=== PATIENT | female | born 1935 | race Caucasian/White ===

== ENCOUNTER 2017-12-09 10:22 | Inpatient (IN) | payer MEDICARE, BC ==
[2017-12-09] MEDS ORDERED: LEVOFLOXACIN 750MG-D5W PMX 750 MG in DEXTROSE/WATER 1 150ML.BAG IVPB STA (10:41)
[2017-12-09] MEDS ORDERED: ACETAMINOPHEN TAB 500 MG TAB PO STA (10:41)
--- NOTE | 2017-12-09 10:45 | ED ---
SOB HPI - General Chief Complaint: Shortness of Breath Stated Complaint: Diff Breathing Time Seen by Provider: 12/09/17 10:31 Source: patient Mode of arrival: EMS Limitations: physical limitation - History of Present Illness Initial Comments: Physical 82-year-old female to history of emphysema who is O2 dependent at home on 2-1/2 L [id number] presents emergency department for worsening shortness of breath. The patient states that the symptoms seem to get worse today. She does use albuterol every 4 hours at home and she stated that she use one this morning however did not improve her symptoms. She states that she has been coughing up yellow sputum which she typically does not do. She is noticed being a little bit febrile at home as well. She called [facility] when her breathing got worse. In route she received aspirin and a breathing treatment. She states that the breathing treatment slightly improved her symptoms. She does also admits to some right-sided chest wall pain that is worse when she coughs. She denies any nausea, vomiting, or diarrhea. No sick contacts that she knows about. Patient did receive a flu shot this year. No other acute complaints. - Related Data Home Medications Medication Instructions Recorded Confirmed Isosorbide Mononitrate ER [Imdur] 30 mg PO DAILY 03/07/14 12/09/17 Atorvastatin [Lipitor] 40 mg PO DAILY 06/25/14 12/09/17 Furosemide [Lasix] 20 mg PO DAILY 12/13/14 12/09/17 Losartan [Cozaar] 25 mg PO DAILY 11/27/15 12/09/17 Aspirin EC [Ecotrin Low Dose] 81 mg PO DAILY 04/29/16 12/09/17 Nitroglycerin Sl Tabs [Nitrostat] 0.4 mg SUBLINGUAL Q5M PRN 04/29/16 12/09/17 Vit C/E/Zn/Coppr/Lutein/Zeaxan 1 cap PO BID 04/29/16 12/09/17 [Preservision Areds 2 Softgel] Levothyroxine Sodium [Synthroid] 50 mcg PO DAILY 09/23/16 12/09/17 Allopurinol [Zyloprim] 100 mg PO DAILY 12/09/17 12/09/17 Calcium Carbonate [Calcium] 600 mg PO DAILY 12/09/17 12/09/17 Indacaterol/Glycopyrrolate 1 puff INHALATION RT-DAILY 12/09/17 12/09/17 [Utibron Neohaler 27.5-15.6 Mcg] Previous Rx's Medication Instructions Recorded Atenolol [Tenormin] 50 mg PO BID tab 11/16/15 Ipratropium-Albuterol Nebulize 3 ml INHALATION RT-QID #0 11/16/15 [Duoneb 0.5 mg-3 mg/3 ml Soln] predniSONE 20 mg PO DAILY #5 tab 09/28/16 Allergies Allergy/AdvReac Type Severity Reaction Status Date / Time azithromycin [From Zithromax] Allergy Severe Dyspnea Verified 12/09/17 10:50 codeine Allergy Dyspnea Verified 12/09/17 10:50 erythromycin base Allergy Dyspnea Verified 12/09/17 10:50 [Erythromycin Base] Review of Systems ROS Statement: Those systems with pertinent positive or pertinent negative responses have been documented in the HPI. ROS Other: All systems not noted in ROS Statement are negative. Past Medical History Past Medical History: COPD, Hyperlipidemia, Hypertension, Myocardial Infarction (PA), Pneumonia, Thyroid Disorder Additional Past Medical History / Comment(s): COPD with FEV1 of 35% of predictedl oxygen dependent, coronary artery disease with previous PA, hypothyroidism, hyperlipidemia, previous history of influenza respiratory checked infection, glaucoma, iron deficiency, chronic renal failure, hypertension Last Myocardial Infarction Date:: History of Any Multi-Drug Resistant Organisms: None Reported Past Surgical History: Cholecystectomy, Heart Catheterization, Heart Catheterization With Stent, Hysterectomy, Tonsillectomy Additional Past Surgical History / Comment(s): parathyroidectomy, bilateral cataract surgery, BLADDER suspension surgery, right inguinal hernia repair, left hand tendon repair. Past Anesthesia/Blood Transfusion Reactions: No Reported Reaction Date of Last Stent Placement:: 1999 Past Psychological History: No Psychological Hx Reported Smoking Status: Former smoker Past Alcohol Use History: None Reported Past Drug Use History: None Reported - Past Family History Father Family Medical History: Myocardial Infarction (PA) Additional Family Medical History / Comment(s): AT AGE 83 Mother Family Medical History: Congestive Heart Failure (CHF), Coronary Artery Disease (CAD), Renal Disease Additional Family Medical History / Comment(s): AT AGE 79 General Exam - General Exam Comments Initial Comments: Constitutional: Awake alert Appears comfortable Head: Normocephalic atraumatic Eyes: no conjunctival injection No scleral icterus EOMI Neck: No JVD Supple Heart: Regular rate rhythm normal S1-S2 no murmurs Lungs: Tachypnea with bilateral expiratory wheezes No rales Abdomen: Soft nondistended nontender Extremities: Non edematous DP pulses intact Radial pulses intact Neuro: A&Ox3 No focal neurologic deficits Psych: Appropriate mood and affect Limitations: physical limitation Course Vital Signs 12/09/17 12/09/17 12/09/17 10:32 11:06 11:12 Temperature 101 F H Pulse Rate 90 90 96 Respiratory 16 Rate Blood Pressure 167/70 O2 Sat by Pulse 96 Oximetry - Reevaluation(s) Reevaluation #1: 12/09/17 10:45 EKG showing normal sinus rhythm with a rate of 87. No abnormal ST segment changes. There are T-wave inversions in leads II, III, and F aVF and also V6. QTC is 454. Other intervals are normal. No ectopy. Medical Decision Making - Medical Decision Making Is an 82-year-old female who presents emergency department for shortness of breath and cough productive of yellow sputum. The patient had a chest x-ray that was unremarkable for any acute changes. She was influenza B-positive. Was started on Tamiflu. Due to her peroneal and sputum I did start the patient Levaquin to cover for bacterial bronchitis. The patient will be admitted to the hospital for monitoring. She was improved after DuoNeb treatment. Did not require further ventilatory assistance. Dr. Arita except see admission. The patient was updated and agrees. - Lab Data Result diagrams: 12/09/17 11:00 12/09/17 11:00 Lab Results 12/09/17 12/09/17 12/09/17 Range/Units 10:35 11:00 11:00 WBC 10.6 (3.8-10.6) k/uL RBC 3.89 (3.80-5.40) m/uL Hgb 11.7 (11.4-16.0) gm/dL Hct 36.3 (34.0-46.0) % MCV 93.3 (80.0-100.0) fL MCH 30.2 (25.0-35.0) pg MCHC 32.4 (31.0-37.0) g/dL RDW 16.1 H (11.5-15.5) % Plt Count 208 (150-450) k/uL Neutrophils % 83 % Lymphocytes % 8 % Monocytes % 5 % Eosinophils % 3 % Basophils % 0 % Neutrophils # 8.8 H (1.3-7.7) k/uL Lymphocytes # 0.9 L (1.0-4.8) k/uL Monocytes # 0.5 (0-1.0) k/uL Eosinophils # 0.3 (0-0.7) k/uL Basophils # 0.0 (0-0.2) k/uL Poikilocytosis Slight Anisocytosis Slight PT (9.0-12.0) sec INR (<1.2) APTT (22.0-30.0) sec Sodium (137-145) mmol/L Potassium (3.5-5.1) mmol/L Chloride (98-107) mmol/L Carbon Dioxide (22-30) mmol/L Anion Gap mmol/L BUN (7-17) mg/dL Creatinine (0.52-1.04) mg/dL Est GFR (MDRD) Af Amer (>60 ml/min/1.73 sqM) Est GFR (MDRD) Non-Af (>60 ml/min/1.73 sqM) Glucose (74-99) mg/dL Plasma Lactic Acid Mart (0.7-2.0) mmol/L Calcium (8.4-10.2) mg/dL Total Bilirubin (0.2-1.3) mg/dL AST (14-36) U/L ALT (9-52) U/L Alkaline Phosphatase (38-126) U/L Total Creatine Kinase 41 (30-135) U/L Total Protein (6.3-8.2) g/dL Albumin (3.5-5.0) g/dL Influenza Type A RNA Not Detected (Not Detectd) Influenza Type B (PCR) Detected H (Not Detectd) 12/09/17 12/09/17 12/09/17 Range/Units 11:00 11:00 11:00 WBC (3.8-10.6) k/uL RBC (3.80-5.40) m/uL Hgb (11.4-16.0) gm/dL Hct (34.0-46.0) % MCV (80.0-100.0) fL MCH (25.0-35.0) pg MCHC (31.0-37.0) g/dL RDW (11.5-15.5) % Plt Count (150-450) k/uL Neutrophils % % Lymphocytes % % Monocytes % % Eosinophils % % Basophils % % Neutrophils # (1.3-7.7) k/uL Lymphocytes # (1.0-4.8) k/uL Monocytes # (0-1.0) k/uL Eosinophils # (0-0.7) k/uL Basophils # (0-0.2) k/uL Poikilocytosis Anisocytosis PT 9.9 (9.0-12.0) sec INR 1.0 (<1.2) APTT 19.3 L (22.0-30.0) sec Sodium 142 (137-145) mmol/L Potassium 4.3 (3.5-5.1) mmol/L Chloride 106 (98-107) mmol/L Carbon Dioxide 27 (22-30) mmol/L Anion Gap 9 mmol/L BUN 57 H (7-17) mg/dL Creatinine 1.60 H (0.52-1.04) mg/dL Est GFR (MDRD) Af Amer 37 (>60 ml/min/1.73 sqM) Est GFR (MDRD) Non-Af 31 (>60 ml/min/1.73 sqM) Glucose 85 (74-99) mg/dL Plasma Lactic Acid Mart 1.3 (0.7-2.0) mmol/L Calcium 9.6 (8.4-10.2) mg/dL Total Bilirubin 1.1 (0.2-1.3) mg/dL AST 33 (14-36) U/L ALT 48 (9-52) U/L Alkaline Phosphatase 66 (38-126) U/L Total Creatine Kinase (30-135) U/L Total Protein 5.5 L (6.3-8.2) g/dL Albumin 3.5 (3.5-5.0) g/dL Influenza Type A RNA (Not Detectd) Influenza Type B (PCR) (Not Detectd) Disposition Clinical Impression: Influenza, COPD exacerbation Disposition: ADMITTED IP TO THIS HOSP Condition: Stable
[2017-12-09] MEDS ORDERED: IPRATROPIUM-ALBUTEROL 3 ML NEB INHALATION STA (11:03)
[2017-12-09] MEDS ORDERED: methylPREDNISolone SOD SUCCI 125 MG/2 ML VIAL IV STA (11:04)
[2017-12-09] MEDS: SODIUM CHLORIDE 0.9% 500 ML IV SCH ×2 (11:13→11:14)
[2017-12-09] MEDS: SODIUM CHLORIDE 0.9% 1,000 ML IV SCH (11:14)
[2017-12-09 11:28] LABS: Prothrombin Time 9.9 sec (9.0-12.0)
[2017-12-09 11:29] LABS: Albumin 3.5 g/dL (3.5-5.0); Anisocytosis Slight; Basophils % (A) 0 %; Calcium 9.6 mg/dL (8.4-10.2); Eosinophils # (A) 0.3 k/uL (0-0.7); Eosinophils % (A) 3 %; HCT 36.3 % (34.0-46.0); HGB 11.7 gm/dL (11.4-16.0); Lymphocytes # (A) 0.9 k/uL (1.0-4.8); Lymphocytes % (A) 8 %; MCH 30.2 pg (25.0-35.0); MCHC 32.4 g/dL (31.0-37.0); MCV 93.3 fL (80.0-100.0); Mean Platelet Volume 7.2; Monocytes # (A) 0.5 k/uL (0-1.0); Monocytes % (A) 5 %; Neutrophils # (A) 8.8 k/uL (1.3-7.7); Neutrophils % (A) 83 %; Platelet Count 208 k/uL (150-450); Poikilocytosis Slight; Potassium 4.3 mmol/L (3.5-5.1); RBC 3.89 m/uL (3.80-5.40); RDW 16.1 % (11.5-15.5); Total Bilirubin 1.1 mg/dL (0.2-1.3); Total Protein 5.5 g/dL (6.3-8.2); WBC 10.6 k/uL (3.8-10.6)
--- NOTE | 2017-12-09 11:44 | XR ---
EXAMINATION TYPE: XR chest 2V DATE OF EXAM: 12/09/2017 COMPARISON: Chest CT November 30, 2015. Two view chest xray November 05, 2016. HISTORY: Cough and fever. TECHNIQUE: Frontal and lateral views of the chest are obtained. FINDINGS: There is background chronic emphysematous change with scattered fibrosis most prominent in the upper lobes. There is persistent 1.8 cm left upper lobe nodule which correlates with cavitary le ghazala on prior CT. There is no new suspicious focal airspace opacity, pleural effusion, or pneumothora x seen. The cardiac silhouette size is within normal limits. The osseous structures remain deminer alized. IMPRESSION: Chronic emphysematous change with upper lung fibrosis but no suspicious acute pulmonary process.
[2017-12-09] MEDS ORDERED: OSELTAMIVIR 75 MG CAP PO ONE (11:45)
[2017-12-09 12:05] LABS: Partial Thromboplastin Time 19.3 sec (22.0-30.0)
[2017-12-09] MEDS ORDERED: NITROGLYCERIN SL TABS 0.4 MG TAB SUBLINGUAL PRN (12:14)
[2017-12-09 12:33] LABS: Troponin I 0.063 ng/mL (0.000-0.034)
--- NOTE | 2017-12-09 17:54 | P.HPIM ---
History of Present Illness 82-year-old female to history of emphysema who is O2 dependent at home on 2-1/2 L [id number] presents emergency department for worsening shortness of breath. The patient states that the symptoms seem to get worse today. She does use albuterol every 4 hours at home and she stated that she use one this morning however did not improve her symptoms. She states that she has been coughing up yellow sputum which she typically does not do. She is noticed being a little bit febrile at home as well. She does also admits to some right-sided chest wall pain that is worse when she coughs. She denies any nausea, vomiting, or diarrhea. No sick contacts that she knows about. Patient did receive a flu shot this year. No other acute complaints. complaint of fever chills for a while. Patient is found to have influenza B positive has symptoms of body aches started yesterday morning. Chest x-ray did not show any pneumonic process. Patient is on 20 mg of Lasix for ankle edema. Review of Systems REVIEW OF SYSTEMS: CONSTITUTIONAL: As mentioned above HEENT: No recent visual problems or hearing problems. Denied any sore throat. CARDIOVASCULAR: No chest pain, orthopnea, PND, no palpitations, no syncope. PULMONARY: no hemoptysis. GASTROINTESTINAL: No diarrhea, no nausea, no vomiting, no abdominal pain. Normoactive bowel sounds. NEUROLOGICAL: No headaches, no weakness, no numbness. HEMATOLOGICAL: Denies any bleeding or petechiae. GENITOURINARY: Denies any burning micturition, frequency, or urgency. MUSCULOSKELETAL/RHEUMATOLOGICAL: Denies any joint pain, swelling, or any muscle pain. ENDOCRINE: Denies any polyuria or polydipsia. The rest of the 14-point review of systems is negative. Past Medical History Past Medical History: Heart Failure, COPD, Hyperlipidemia, Hypertension, Myocardial Infarction (PR), Pneumonia, Thyroid Disorder Additional Past Medical History / Comment(s): COPD-home 02 2.5 liters n/c atc , coronary artery disease with previous PR, hypothyroidism, hyperlipidemia, previous history of influenza infection, glaucoma, iron deficiency, chronic renal failure, hypertension Last Myocardial Infarction Date:: History of Any Multi-Drug Resistant Organisms: None Reported Past Surgical History: Cholecystectomy, Heart Catheterization, Heart Catheterization With Stent, Hysterectomy, Tonsillectomy Additional Past Surgical History / Comment(s): parathyroidectomy, bilateral cataract surgery, BLADDER suspension surgery, right inguinal hernia repair, left hand tendon repair. Past Anesthesia/Blood Transfusion Reactions: No Reported Reaction Date of Last Stent Placement:: 1999 Smoking Status: Former smoker - Past Family History Father Family Medical History: Myocardial Infarction (PR) Additional Family Medical History / Comment(s): AT AGE 83 Mother Family Medical History: Congestive Heart Failure (CHF), Coronary Artery Disease (CAD), Renal Disease Additional Family Medical History / Comment(s): AT AGE 79 Medications and Allergies Home Medications Medication Instructions Recorded Confirmed Type Isosorbide Mononitrate ER [Imdur] 30 mg PO DAILY 03/07/14 12/09/17 History Atorvastatin [Lipitor] 40 mg PO DAILY 06/25/14 12/09/17 History Furosemide [Lasix] 20 mg PO DAILY 12/13/14 12/09/17 History Atenolol [Tenormin] 50 mg PO BID tab 11/16/15 12/09/17 Rx Ipratropium-Albuterol Nebulize 3 ml INHALATION RT-QID #0 11/16/15 12/09/17 Rx [Duoneb 0.5 mg-3 mg/3 ml Soln] Losartan [Cozaar] 25 mg PO DAILY 11/27/15 12/09/17 History Aspirin EC [Ecotrin Low Dose] 81 mg PO DAILY 04/29/16 12/09/17 History Nitroglycerin Sl Tabs [Nitrostat] 0.4 mg SUBLINGUAL Q5M PRN 04/29/16 12/09/17 History Vit C/E/Zn/Coppr/Lutein/Zeaxan 1 cap PO BID 04/29/16 12/09/17 History [Preservision Areds 2 Softgel] Levothyroxine Sodium [Synthroid] 50 mcg PO DAILY 09/23/16 12/09/17 History predniSONE 20 mg PO DAILY #5 tab 09/28/16 12/09/17 Rx Allopurinol [Zyloprim] 100 mg PO DAILY 12/09/17 12/09/17 History Calcium Carbonate [Calcium] 600 mg PO DAILY 12/09/17 12/09/17 History Indacaterol/Glycopyrrolate 1 puff INHALATION RT-DAILY 02/19/18 02/19/18 History [Utibron Neohaler 27.5-15.6 Mcg] Latanoprost [Xalatan 0.005%] 1 drop BOTH EYES HS 12/09/17 12/09/17 History Allergies Allergy/AdvReac Type Severity Reaction Status Date / Time azithromycin [From Zithromax] Allergy Severe Dyspnea Verified 12/09/17 10:50 codeine Allergy Dyspnea Verified 12/09/17 10:50 erythromycin base Allergy Dyspnea Verified 12/09/17 10:50 [Erythromycin Base] Physical Exam Vitals: Vital Signs Temp Pulse Resp BP Pulse Ox 12/09/17 16:37 80 16 117/56 96 12/09/17 13:06 100/49 12/09/17 13:02 98.3 F 87 16 95/40 98 12/09/17 11:12 96 12/09/17 11:06 90 12/09/17 10:38 18 117/52 96 12/09/17 10:32 101 F H 90 16 167/70 96 Intake and Output 12/09/17 12/09/17 12/09/17 06:59 14:59 22:59 Other: Weight 65 kg Patient Weight 12/10/17 06:59 Weight 65 kg PHYSICAL EXAMINATION: GENERAL: The patient is alert and oriented x3, not in any acute distress. Well developed, well nourished. HEENT: Pupils are round and equally reacting to light. EOMI. No scleral icterus. No conjunctival pallor. Normocephalic, atraumatic. No pharyngeal erythema. No thyromegaly. CARDIOVASCULAR: S1 and S2 present. No murmurs, rubs, or gallops. PULMONARY: Expiratory wheezing was appreciated degrees 80 and bilateral lung campbell. ABDOMEN: Soft, nontender, nondistended, normoactive bowel sounds. No palpable organomegaly. MUSCULOSKELETAL: No joint swelling or deformity. EXTREMITIES: No cyanosis, clubbing, or pedal edema. NEUROLOGICAL: Gross neurological examination did not reveal any focal deficits. SKIN: No rashes. Results CBC & Chem 7: 12/09/17 11:00 12/09/17 11:00 Labs: Abnormal Lab Results - Last 24 Hours (Table) 12/09/17 12/09/17 12/09/17 Range/Units 10:35 11:00 11:00 RDW 16.1 H (11.5-15.5) % Neutrophils # 8.8 H (1.3-7.7) k/uL Lymphocytes # 0.9 L (1.0-4.8) k/uL APTT (22.0-30.0) sec BUN (7-17) mg/dL Creatinine (0.52-1.04) mg/dL CK-MB (CK-2) 3.0 H* (0.0-2.4) ng/mL Troponin I 0.063 H* (0.000-0.034) ng/mL Total Protein (6.3-8.2) g/dL Influenza Type B (PCR) Detected H (Not Detectd) 12/09/17 12/09/17 Range/Units 11:00 11:00 RDW (11.5-15.5) % Neutrophils # (1.3-7.7) k/uL Lymphocytes # (1.0-4.8) k/uL APTT 19.3 L (22.0-30.0) sec BUN 57 H (7-17) mg/dL Creatinine 1.60 H (0.52-1.04) mg/dL CK-MB (CK-2) (0.0-2.4) ng/mL Troponin I (0.000-0.034) ng/mL Total Protein 5.5 L (6.3-8.2) g/dL Influenza Type B (PCR) (Not Detectd) Assessment and Plan Plan: -Sepsis: Secondary to influenza patient was started on Tamiflu. -Acute on chronic hypercapnic respiratory failure patient normally uses 2.5 L of oxygen at home patient will be started on oral steroids along with inhalational treatments patient was already started on levofloxacin which will be continued. Patient's COPD was postdated by influenza. -Hypertension Hyperlipidemia -Coronary artery disease -Hypothyroidism -Mildly elevated troponin secondary to type II non-ST elevation myocardial infarction secondary to influenza For above-mentioned chronic medical problems which are fairly stable patient will be started on appropriate home medications.
[2017-12-09] MEDS: IPRATROPIUM-ALBUTEROL 3 ML NEB INHALATION SCH (18:07)
[2017-12-09] MEDS: VIT A,C & E-LUTEIN-MINERALS 1 EACH TAB PO SCH (18:37)
[2017-12-10 00:12] LABS: Appearance,Urine Clear (Clear); Bilirubin,Urine Negative (Negative); Blood,Urine Negative (Negative); Color,Urine Yellow; Glucose,Urine (UA) Negative (Negative); Ketones,Urine Negative (Negative); Leukocyte Esterase,Urine Negative (Negative); Protein,Urine Negative (Negative); Specific Gravity,Urine 1.014 (1.001-1.035); Urobilinogen,Urine <2.0 mg/dL (<2.0)
[2017-12-10] MEDS: ATENOLOL 50 MG TAB PO SCH ×3 (02:47→20:48)
[2017-12-10] MEDS: IPRATROPIUM-ALBUTEROL 3 ML NEB INHALATION PRN (05:10)
[2017-12-10 06:12] LABS: HCT 32.2 % (34.0-46.0); HGB 10.5 gm/dL (11.4-16.0); Hypochromasia Slight; MCHC 32.7 g/dL (31.0-37.0); MCV 97.8 fL (80.0-100.0); Macrocytosis Slight; Mean Platelet Volume 7.3; Platelet Count 153 k/uL (150-450); WBC 9.6 k/uL (3.8-10.6)
[2017-12-10 06:27] LABS: Calcium 8.5 mg/dL (8.4-10.2); Potassium 4.9 mmol/L (3.5-5.1)
[2017-12-10] MEDS: SODIUM CHLORIDE 0.9% 1,000 ML IV SCH ×3 (06:37→17:06)
[2017-12-10] MEDS ORDERED: OSELTAMIVIR 75 MG CAP PO SCH ×2 (09:00)
[2017-12-10] MEDS ORDERED: LOSARTAN 25 MG TAB PO SCH (09:00)
[2017-12-10] MEDS ORDERED: FUROSEMIDE 20 MG TAB PO SCH (09:00)
[2017-12-10] MEDS ORDERED: LEVOFLOXACIN 500 MG TAB PO SCH (09:00)
[2017-12-10] MEDS: IPRATROPIUM-ALBUTEROL 3 ML NEB INHALATION SCH ×4 (09:43→19:52)
[2017-12-10] MEDS: GLYCOPYRROLATE INHALATION SCH (10:46)
[2017-12-10] MEDS: INDACATEROL INHALATION SCH (10:46)
--- NOTE | 2017-12-10 11:15 | P.CNPUL ---
History of Present Illness Consult date: 12/10/17 Requesting physician: Bryn Michelle Reason for consult: dyspnea Chief complaint: Shortness of breath, cough, congestion History of present illness: This is a very pleasant 82-year-old female patient who follows with Dr. Charles as her primary care physician. She has a history of hypertension, hyperlipidemia, myocardial infarction, hypothyroidism, chronic renal failure, iron deficiency anemia. She also follows with Dr. 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 Her FEV1 value is 35% of predicted. She was last seen a few weeks ago and was doing well at that time. She presented here to the emergency room yesterday with complaints of increasing shortness of breath, yellow productive sputum, chills. She also had some right-sided chest wall pain. More so on inhalation. 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 There is a persistent 1.8 cm left upper lobe nodule which correlates with a cavitary lesion on a previous computed tomography scan. No acute pulmonary process. Sputum culture is pending. The patient was found to be influenza B+. No leukocytosis. Borderline troponin leak. Echocardiogram pending Creatinine 1.71. She is seen today in consultation on the selective care unit. She is currently awake and alert in no acute distress. She is breathing slightly better today as compared to yesterday. The yellow productive sputum has cleared. No hemoptysis. She is currently afebrile. She did have a T-max of 101.0. She is maintaining good O2 saturations in the upper 90s on 2 L/m per nasal cannula. She's been hemodynamically stable. Review of Systems Eyes: denies blurred vision, denies decreased vision Ears: bilateral: decreased hearing Ears, nose, mouth and throat: Reports sinus pressure, Reports sore throat Cardiovascular: Reports chest pain, Reports shortness of breath Respiratory: Reports cough with sputum, Reports dyspnea, Reports home oxygen, Reports pain on inspiration Gastrointestinal: Denies abdominal pain, Denies diarrhea, Denies nausea, Denies vomiting Genitourinary: Denies dysuria, Denies hematuria Musculoskeletal: Reports limitation of motion Integumentary: Reports color changes Neurological: Denies numbness, Denies weakness Psychiatric: Reports anxiety Endocrine: Denies fatigue, Denies weight change Past Medical History Past Medical History: Heart Failure, COPD, Hyperlipidemia, Hypertension, Myocardial Infarction (ND), Pneumonia, Thyroid Disorder Additional Past Medical History / Comment(s): COPD-home 02 2.5 liters n/c atc , coronary artery disease with previous ND, hypothyroidism, hyperlipidemia, previous history of influenza infection, glaucoma, iron deficiency, chronic renal failure, hypertension Last Myocardial Infarction Date:: History of Any Multi-Drug Resistant Organisms: None Reported Past Surgical History: Cholecystectomy, Heart Catheterization, Heart Catheterization With Stent, Hysterectomy, Tonsillectomy Additional Past Surgical History / Comment(s): parathyroidectomy, bilateral cataract surgery, BLADDER suspension surgery, right inguinal hernia repair, left hand tendon repair. Past Anesthesia/Blood Transfusion Reactions: No Reported Reaction Date of Last Stent Placement:: 1999 Smoking Status: Former smoker - Past Family History Father Family Medical History: Myocardial Infarction (ND) Additional Family Medical History / Comment(s): AT AGE 83 Mother Family Medical History: Congestive Heart Failure (CHF), Coronary Artery Disease (CAD), Renal Disease Additional Family Medical History / Comment(s): AT AGE 79 Medications and Allergies Home Medications Medication Instructions Recorded Confirmed Type Isosorbide Mononitrate ER [Imdur] 30 mg PO DAILY 03/07/14 12/09/17 History Atorvastatin [Lipitor] 40 mg PO DAILY 06/25/14 12/09/17 History Furosemide [Lasix] 20 mg PO DAILY 12/13/14 12/09/17 History Atenolol [Tenormin] 50 mg PO BID tab 11/16/15 12/09/17 Rx Ipratropium-Albuterol Nebulize 3 ml INHALATION RT-QID #0 11/16/15 12/09/17 Rx [Duoneb 0.5 mg-3 mg/3 ml Soln] Losartan [Cozaar] 25 mg PO DAILY 11/27/15 12/09/17 History Aspirin EC [Ecotrin Low Dose] 81 mg PO DAILY 04/29/16 12/09/17 History Nitroglycerin Sl Tabs [Nitrostat] 0.4 mg SUBLINGUAL Q5M PRN 04/29/16 12/09/17 History Vit C/E/Zn/Coppr/Lutein/Zeaxan 1 cap PO BID 04/29/16 12/09/17 History [Preservision Areds 2 Softgel] Levothyroxine Sodium [Synthroid] 50 mcg PO DAILY 09/23/16 12/09/17 History predniSONE 20 mg PO DAILY #5 tab 09/28/16 12/09/17 Rx Allopurinol [Zyloprim] 100 mg PO DAILY 12/09/17 12/09/17 History Calcium Carbonate [Calcium] 600 mg PO DAILY 12/09/17 12/09/17 History Indacaterol/Glycopyrrolate 1 puff INHALATION RT-DAILY 12/09/17 12/09/17 History [Utibron Neohaler 27.5-15.6 Mcg] Latanoprost [Xalatan 0.005%] 1 drop BOTH EYES HS 12/09/17 12/09/17 History Allergies Allergy/AdvReac Type Severity Reaction Status Date / Time azithromycin [From Zithromax] Allergy Severe Dyspnea Verified 12/09/17 10:50 codeine Allergy Dyspnea Verified 12/09/17 10:50 erythromycin base Allergy Dyspnea Verified 12/09/17 10:50 [Erythromycin Base] Physical Exam Vitals: Vital Signs Temp Pulse Pulse Resp BP BP Pulse Ox 12/10/17 09:57 92 12/10/17 09:43 92 12/10/17 08:00 97.5 F L 76 18 109/50 95 12/10/17 05:16 90 12/10/17 05:01 89 12/10/17 03:51 97.2 F L 94 18 137/71 96 12/10/17 01:10 98.5 F 83 20 143/62 97 12/09/17 23:00 83 18 126/61 98 12/09/17 22:26 80 20 124/58 97 12/09/17 22:01 98.4 F 83 20 132/59 97 12/09/17 21:00 86 20 133/61 97 12/09/17 20:00 98.2 F 89 20 133/61 96 12/09/17 19:56 98.3 F 89 20 128/61 96 12/09/17 19:00 98.4 F 88 18 118/60 95 12/09/17 18:19 79 12/09/17 18:09 79 12/09/17 16:37 80 16 117/56 96 12/09/17 13:06 100/49 12/09/17 13:02 98.3 F 87 16 95/40 98 12/09/17 11:12 96 12/09/17 11:06 90 Intake and Output 12/09/17 12/10/17 12/10/17 22:59 06:59 14:59 Other: Voiding Method Toilet Weight 63.6 kg GENERAL EXAM: Alert, comfortable in no apparent distress. HEAD: Normocephalic. EYES: Normal reaction of pupils, equal size. NOSE: Clear with pink turbinates. THROAT: No erythema or exudates. NECK: No masses, no JVD. CHEST: No chest wall deformity. LUNGS: Equal air entry with end expiratory wheeze. Diminished. CVS: S1 and S2 normal with no audible murmur, regular rhythm. ABDOMEN: No hepatosplenomegaly, normal bowel sounds, no guarding or rigidity. SPINE: No scoliosis or deformity SKIN: No rashes, ecchymosis from chronic steroids. CENTRAL NERVOUS SYSTEM: No focal deficits, tone is normal in all 4 extremities. EXTREMITIES: There is no peripheral edema. No clubbing, no cyanosis. Peripheral pulses are intact. Results - Laboratory Findings CBC and BMP: 12/10/17 05:38 12/10/17 05:38 PT/INR, D-dimer PT 9.9 sec (9.0-12.0) 12/09/17 11:00 INR 1.0 (<1.2) 12/09/17 11:00 Abnormal lab findings: Abnormal Labs 12/09/17 12/09/17 12/09/17 10:35 11:00 11:00 RBC Hgb Hct RDW 16.1 H Neutrophils # 8.8 H Lymphocytes # 0.9 L APTT Chloride BUN Creatinine Glucose CK-MB (CK-2) 3.0 H* Troponin I 0.063 H* Total Protein Influenza Type B (PCR) Detected H 12/09/17 12/09/17 12/09/17 11:00 11:00 23:34 RBC Hgb Hct RDW Neutrophils # Lymphocytes # APTT 19.3 L Chloride BUN 57 H Creatinine 1.60 H Glucose CK-MB (CK-2) Troponin I 0.054 H* Total Protein 5.5 L Influenza Type B (PCR) 12/10/17 12/10/17 12/10/17 05:38 05:38 05:38 RBC 3.30 L Hgb 10.5 L Hct 32.2 L RDW 16.0 H Neutrophils # Lymphocytes # APTT Chloride 111 H BUN 55 H Creatinine 1.71 H Glucose 110 H CK-MB (CK-2) Troponin I 0.057 H* Total Protein Influenza Type B (PCR) - Diagnostic Findings Chest x-ray: image reviewed Assessment and Plan Assessment: Impression: #1 Acute exacerbation of oxygen dependent chronic obstructive pulmonary disease secondary to acute influenza B infection. #2 Acute on chronic hypoxic respiratory failure secondary to above #3 Mild troponin leak. #4 History of coronary artery disease with previous stent placement. #5 Acute on chronic renal failure. #6 Hypothyroidism. #7 Hypertension. #8 Hyperlipidemia. #9 Poor overall functional performance based on the above-mentioned multiple comorbidities. Plan: The patient was seen and evaluated by Dr. Colon. Her chest x-ray and labs were reviewed. We'll continue with her current pulmonary medications including DuoNeb inhalations 4 times a day and as needed. We'll add Pulmicort inhalations twice a day. Continue prednisone taper. Continue Levaquin. Continue Tamiflu. Await sputum culture. Echocardiogram is pending. We will continue to follow and make further recommendations based on her clinical status. I, the cosigning physician, performed a history & physical examination of the patient. Lungs sounds have end expiratory wheeze bilaterally. Diminished. Maintaining good O2 saturations in the 90s on 2 L/m per nasal cannula. I discussed the assessment and plan of care with my nurse practitioner, Kelly Merchant. I attest to the above note as dictated by her. Time with Patient: Greater than 30
--- NOTE | 2017-12-10 11:18 | P.CRDCN ---
History of Present Illness Consult date: 12/10/17 Requesting physician: Bryn Michelle Reason for Consult (text): Abnormal troponin Chief complaint: Shortness of breath, chills History of present illness: This is an 82-year-old female with history of coronary artery disease and prior LAD stenting, hypertension, hyperlipidemia, hypothyroidism, COPD severe, with home O2 use. She presented to the hospital with symptoms of progressively worsening shortness of breath with associated cough and chills. She denies having any chest discomfort, she did complain of some lower back discomfort. Chest x-ray performed on admission revealed chronic emphysema changes with upper lung fibrosis but no suspicious acute pulmonary process. EKG showed normal sinus rhythm with nonspecific intraventricular conduction delay, nonspecific ST-T wave changes, similar to prior EKG. Blood pressure 110/ 60, heart rate in the 90s, 95% on 2-1/2 L of O2. Hemoglobin 10.5, white blood cell count is normal. Sodium 143, potassium 4.9, BUN 55, creatinine 1.7. Troponins 0.063, 0.054, 0.057. Positive influenza B. Cardiology consultation was requested because of the abnormal troponin. Patient denies having any chest discomfort. Past Medical History Past Medical History: Heart Failure, COPD, Hyperlipidemia, Hypertension, Myocardial Infarction (CT), Pneumonia, Thyroid Disorder Additional Past Medical History / Comment(s): COPD-home 02 2.5 liters n/c atc , coronary artery disease with previous CT, hypothyroidism, hyperlipidemia, previous history of influenza infection, glaucoma, iron deficiency, chronic renal failure, hypertension Last Myocardial Infarction Date:: History of Any Multi-Drug Resistant Organisms: None Reported Past Surgical History: Cholecystectomy, Heart Catheterization, Heart Catheterization With Stent, Hysterectomy, Tonsillectomy Additional Past Surgical History / Comment(s): parathyroidectomy, bilateral cataract surgery, BLADDER suspension surgery, right inguinal hernia repair, left hand tendon repair. Past Anesthesia/Blood Transfusion Reactions: No Reported Reaction Date of Last Stent Placement:: 1999 Smoking Status: Former smoker - Past Family History Father Family Medical History: Myocardial Infarction (CT) Additional Family Medical History / Comment(s): AT AGE 83 Mother Family Medical History: Congestive Heart Failure (CHF), Coronary Artery Disease (CAD), Renal Disease Additional Family Medical History / Comment(s): AT AGE 79 Medications and Allergies Home Medications Medication Instructions Recorded Confirmed Type Isosorbide Mononitrate ER [Imdur] 30 mg PO DAILY 03/07/14 12/09/17 History Atorvastatin [Lipitor] 40 mg PO DAILY 06/25/14 12/09/17 History Furosemide [Lasix] 20 mg PO DAILY 12/13/14 12/09/17 History Atenolol [Tenormin] 50 mg PO BID tab 11/16/15 12/09/17 Rx Ipratropium-Albuterol Nebulize 3 ml INHALATION RT-QID #0 11/16/15 12/09/17 Rx [Duoneb 0.5 mg-3 mg/3 ml Soln] Losartan [Cozaar] 25 mg PO DAILY 11/27/15 12/09/17 History Aspirin EC [Ecotrin Low Dose] 81 mg PO DAILY 04/29/16 12/09/17 History Nitroglycerin Sl Tabs [Nitrostat] 0.4 mg SUBLINGUAL Q5M PRN 04/29/16 12/09/17 History Vit C/E/Zn/Coppr/Lutein/Zeaxan 1 cap PO BID 04/29/16 12/09/17 History [Preservision Areds 2 Softgel] Levothyroxine Sodium [Synthroid] 50 mcg PO DAILY 09/23/16 12/09/17 History predniSONE 20 mg PO DAILY #5 tab 09/28/16 12/09/17 Rx Allopurinol [Zyloprim] 100 mg PO DAILY 12/09/17 12/09/17 History Calcium Carbonate [Calcium] 600 mg PO DAILY 12/09/17 12/09/17 History Indacaterol/Glycopyrrolate 1 puff INHALATION RT-DAILY 12/09/17 12/09/17 History [Utibron Neohaler 27.5-15.6 Mcg] Latanoprost [Xalatan 0.005%] 1 drop BOTH EYES HS 12/09/17 12/09/17 History Allergies Allergy/AdvReac Type Severity Reaction Status Date / Time azithromycin [From Zithromax] Allergy Severe Dyspnea Verified 12/09/17 10:50 codeine Allergy Dyspnea Verified 12/09/17 10:50 erythromycin base Allergy Dyspnea Verified 12/09/17 10:50 [Erythromycin Base] Physical Exam Vitals: Vital Signs Temp Pulse Pulse Resp BP BP Pulse Ox 12/10/17 09:57 92 12/10/17 09:43 92 12/10/17 08:00 97.5 F L 76 18 109/50 95 12/10/17 05:16 90 12/10/17 05:01 89 12/10/17 03:51 97.2 F L 94 18 137/71 96 12/10/17 01:10 98.5 F 83 20 143/62 97 12/09/17 23:00 83 18 126/61 98 12/09/17 22:26 80 20 124/58 97 12/09/17 22:01 98.4 F 83 20 132/59 97 12/09/17 21:00 86 20 133/61 97 12/09/17 20:00 98.2 F 89 20 133/61 96 12/09/17 19:56 98.3 F 89 20 128/61 96 12/09/17 19:00 98.4 F 88 18 118/60 95 12/09/17 18:19 79 12/09/17 18:09 79 12/09/17 16:37 80 16 117/56 96 12/09/17 13:06 100/49 12/09/17 13:02 98.3 F 87 16 95/40 98 12/09/17 11:12 96 12/09/17 11:06 90 Intake and Output 12/09/17 12/10/17 12/10/17 22:59 06:59 14:59 Other: Voiding Method Toilet Weight 63.6 kg PHYSICAL EXAMINATION: HEENT: Head is atraumatic, normocephalic. Pupils equal, round. Neck is supple. There is no elevated jugular venous pressure. HEART EXAMINATION: Heart S1 and S2 systolic murmur is heard. CHEST EXAMINATION: Lungs reveal scattered coarse rhonchi and wheezing throughout ABDOMEN: Soft, nontender. Bowel sounds are heard. No organomegaly noted. EXTREMITIES: 2+ peripheral pulses with no evidence of peripheral edema and no calf tenderness noted. NEUROLOGIC patient is awake, alert and oriented -3. . Results 12/10/17 05:38 12/10/17 05:38 Cardiac Enzymes 12/09/17 12/09/17 12/09/17 Range/Units 11:00 11:00 23:34 AST 33 (14-36) U/L CK-MB (CK-2) 3.0 H* (0.0-2.4) ng/mL Troponin I 0.063 H* 0.054 H* (0.000-0.034) ng/mL 12/10/17 Range/Units 05:38 AST (14-36) U/L CK-MB (CK-2) (0.0-2.4) ng/mL Troponin I 0.057 H* (0.000-0.034) ng/mL Coagulation 12/09/17 Range/Units 11:00 PT 9.9 (9.0-12.0) sec APTT 19.3 L (22.0-30.0) sec CBC 12/09/17 12/10/17 Range/Units 11:00 05:38 WBC 10.6 9.6 (3.8-10.6) k/uL RBC 3.89 3.30 L (3.80-5.40) m/uL Hgb 11.7 10.5 L (11.4-16.0) gm/dL Hct 36.3 32.2 L (34.0-46.0) % Plt Count 208 153 (150-450) k/uL Comprehensive Metabolic Panel 12/09/17 12/10/17 Range/Units 11:00 05:38 Sodium 142 143 (137-145) mmol/L Potassium 4.3 4.9 (3.5-5.1) mmol/L Chloride 106 111 H (98-107) mmol/L Carbon Dioxide 27 22 (22-30) mmol/L BUN 57 H 55 H (7-17) mg/dL Creatinine 1.60 H 1.71 H (0.52-1.04) mg/dL Glucose 85 110 H (74-99) mg/dL Calcium 9.6 8.5 (8.4-10.2) mg/dL AST 33 (14-36) U/L ALT 48 (9-52) U/L Alkaline Phosphatase 66 (38-126) U/L Total Protein 5.5 L (6.3-8.2) g/dL Albumin 3.5 (3.5-5.0) g/dL Current Medications Generic Name Dose Route Start Last Admin Trade Name Freq PRN Reason Stop Dose Admin Albuterol/Ipratropium 3 ml 12/09/17 17:25 12/10/17 05:10 Duoneb 0.5 Mg-3 Mg/3 Ml Soln INHALATION 3 ml RT-QID PRN Administration Shortness Of Breath Or Wheezing Albuterol/Ipratropium 3 ml 12/09/17 20:00 12/10/17 09:43 Duoneb 0.5 Mg-3 Mg/3 Ml Soln INHALATION 3 ml RT-QID NARINDER Administration Allopurinol 100 mg 12/10/17 09:00 Zyloprim PO DAILY [facility] Aspirin 81 mg 12/10/17 09:00 Aspirin PO DAILY [facility] Atenolol 50 mg 12/09/17 21:00 12/10/17 02:47 Tenormin PO Not Given BID [facility] Atorvastatin Calcium 40 mg 12/10/17 09:00 Lipitor PO DAILY [facility] Calcium Carbonate/Glycine 500 mg 12/10/17 12:00 Tums PO DAILY@1200 [facility] Sodium Chloride 1,000 mls @ 100 mls/hr 12/09/17 10:45 12/10/17 06:37 Saline 0.9% IV 100 mls/hr .Q10H [facility] Administration Isosorbide Mononitrate 30 mg 12/10/17 09:00 Imdur PO DAILY [facility] Levofloxacin 500 mg 12/10/17 09:00 Levaquin PO 12/17/17 09:01 DAILY [facility] Levothyroxine Sodium 50 mcg 12/10/17 06:30 Synthroid PO 0630 [facility] Multivitamins/Minerals 1 each 12/09/17 18:00 12/09/17 18:37 Ivite PO 1 each BID@1200,1800 [facility] Administration Nitroglycerin 0.4 mg 12/09/17 12:14 Nitrostat SUBLINGUAL Q5M PRN Chest Pain Non-Formulary Medication 1 puff 12/10/17 08:00 12/10/17 10:46 Indacaterol/Glycopyrrolate [Utibron Neohaler 27.5-15.6 Mcg] INHALATION Not Given RT-DAILY [facility] Oseltamivir Phosphate 75 mg 12/10/17 09:00 Tamiflu PO 12/10/17 12:00 Q12H [facility] Oseltamivir Phosphate 30 mg 12/11/17 09:00 Tamiflu PO 12/14/17 09:01 DAILY [facility] Prednisone 40 mg 12/10/17 09:00 PO DAILY [facility] Intake and Output 12/09/17 12/10/1712/10/18 22:59 06:59 14:59 Other: Voiding Method Toilet Weight 63.6 kg 12/10/17 05:38 12/10/17 05:38 EKG Interpretations (text) EKG shows normal sinus rhythm with nonspecific intraventricular conduction delay Assessment and Plan Plan: Assessment and plan #1 influenza B #2 abnormal troponins, not consistent with acute coronary syndrome, likely secondary to oxygen supply and demand mismatch #3 Hypertension #4 hyperlipidemia #5 severe COPD on home O2 #6 known history of coronary artery disease with prior LAD stenting Plan We will obtain an echocardiogram with Doppler study. Subcu heparin daily. No further workup from cardiology's perspective, we will follow her now on an as- needed basis only, least on hesitate to call with any questions. DNP note has been reviewed, I agree with a documented findings and plan of care. Patient was seen and examined.
[2017-12-10] MEDS: VIT A,C & E-LUTEIN-MINERALS 1 EACH TAB PO SCH ×2 (11:23→17:27)
[2017-12-10] MEDS: ATORVASTATIN 40 MG TAB PO SCH (11:23)
[2017-12-10] MEDS: ISOSORBIDE MONONITRATE ER 30 MG TAB.ER.24H PO SCH (11:23)
[2017-12-10] MEDS: predniSONE 20 MG TAB PO SCH (11:23)
[2017-12-10] MEDS: CALCIUM CARBONATE 500 MG CHEWABLE PO SCH (11:23)
[2017-12-10] MEDS: ASPIRIN 81 MG PO SCH (11:23)
[2017-12-10] MEDS: ALLOPURINOL 100 MG TAB PO SCH (11:24)
[2017-12-10] MEDS: LEVOTHYROXINE 50 MCG TAB PO SCH (11:24)
--- NOTE | 2017-12-10 13:17 | ECHOF ---
Referral Reason:abn trop MEASUREMENTS -------- HEIGHT: 154.9 cm WEIGHT: 63.5 kg BP: 137/71 RVIDd: 2.6 cm (< 3.3) IVSd: 1.2 cm (0.6 - 1.1) LVIDd: 4.0 cm (3.9 - 5.3) LVPWd: 1.2 cm (0.6 - 1.1) IVSs: 1.5 cm LVIDs: 2.7 cm LVPWs: 1.5 cm LAESV Index (A-L): 18.24 ml/m Ao Diam: 2.7 cm (2.0 - 3.7) AV Cusp: 1.1 cm (1.5 - 2.6) LA Diam: 3.0 cm (2.7 - 3.8) MV E Lukas: 1.31 m/s MV DecT: 273 ms MV A Lukas: 1.34 m/s MV E/A Ratio: 0.98 AV maxP.65 mmHg AV meanP.04 mmHg RAP: 10.00 mmHg RVSP: 38.07 mmHg FINDINGS -------- Resting tachycardia (HR>100bpm). This was a technically adequate study. The left ventricular size is normal. There is mild concentric left ventricular hypertrophy. Overa ll left ventricular systolic function is normal with, an EF between 55 - 60 %. The right ventricle is normal in size and function. Normal LA size by volume 22+/-6 ml/m2. The right atrium is normal in size. Aortic valve is trileaflet and is moderately thickened. Trace to mild aortic regurgitation. There is mild to moderate aortic stenosis present. Peak/mean gradient across the Aortic Valve is 27.65mmH g / 17.04mmHg. The mitral valve leaflets are mildly thickened. Mild mitral annular calcification present. Mild m itral regurgitation is present. Trace tricuspid regurgitation present. There is borderline pulmonary hypertension. The right vent ricular systolic pressure, as measured by Doppler, is 38.07mmHg. The pulmonic valve was not well visualized. The aortic root size is normal. The IVC is dilated with normal collapse. There is a small pericardial effusion is located near the right ventricle. CONCLUSIONS -------- 1. Resting tachycardia (HR>100bpm). 2. This was a technically adequate study. 3. The left ventricular size is normal. 4. There is mild concentric left ventricular hypertrophy. 5. Overall left ventricular systolic function is normal with, an EF between 55 - 60 %. 6. Normal LA size by volume 22+/-6 ml/m2. 7. Trace to mild aortic regurgitation. 8. There is mild to moderate aortic stenosis present. 9. Peak/mean gradient across the Aortic Valve is 27.65mmHg / 17.04mmHg. 10. The mitral valve leaflets are mildly thickened. 11. Mild mitral annular calcification present. 12. Mild mitral regurgitation is present. 13. Trace tricuspid regurgitation present. 14. There is borderline pulmonary hypertension. 15. The right ventricular systolic pressure, as measured by Doppler, is 38.07mmHg. 16. The pulmonic valve was not well visualized. 17. The aortic root size is normal. 18. The IVC is dilated with normal collapse. 19. There is a small pericardial effusion is located near the right ventricle. BODY MECHANIC APPRENTICE: Landon Potter RDCS
--- NOTE | 2017-12-10 15:45 | P.PN ---
Subjective Patient was admitted for influenza bronchitis and COPD exacerbation patient is presently on 2.5 L saturating at 96% on room air at rest. complaining of shortness of breath. Constitutional: Denied any fatigue denied any fever. Cardio vascular: denied any chest pain, palpitations Gastrointestinal denied any nausea vomiting Pulmonary: As mentioned in HPI Neurologic denied any new focal deficits Objective - Vital Signs Vital signs: Vital Signs Temp 97.6 F 12/10/17 11:27 Pulse 88 12/10/17 13:06 Resp 18 12/10/17 11:28 BP 127/74 12/10/17 11:27 Pulse Ox 96 12/10/17 11:27 Intake & Output 12/09/17 12/10/17 12/10/17 18:59 06:59 18:59 Intake Total 120 Balance 120 Weight 65 kg 63.6 kg Intake: Oral 120 Other: Voiding Method Toilet - Exam PHYSICAL EXAMINATION: GENERAL: The patient is alert and oriented x3, not in any acute distress. Well developed, well nourished. HEENT: Pupils are round and equally reacting to light. EOMI. No scleral icterus. No conjunctival pallor. Normocephalic, atraumatic. No pharyngeal erythema. No thyromegaly. CARDIOVASCULAR: S1 and S2 present. No murmurs, rubs, or gallops. PULMONARY: Fairly good air entry into bilateral lung campbell with expiratory wheezing was heard ABDOMEN: Soft, nontender, nondistended, normoactive bowel sounds. No palpable organomegaly. MUSCULOSKELETAL: No joint swelling or deformity. EXTREMITIES: No cyanosis, clubbing, or pedal edema. NEUROLOGICAL: Gross neurological examination did not reveal any focal deficits. SKIN: No rashes. - Labs CBC & Chem 7: 12/10/17 05:38 12/10/17 05:38 Labs: Abnormal Lab Results - Last 24 Hours (Table) 12/09/17 12/10/17 12/10/17 Range/Units 23:34 05:38 05:38 RBC 3.30 L (3.80-5.40) m/uL Hgb 10.5 L (11.4-16.0) gm/dL Hct 32.2 L (34.0-46.0) % RDW 16.0 H (11.5-15.5) % Chloride 111 H (98-107) mmol/L BUN 55 H (7-17) mg/dL Creatinine 1.71 H (0.52-1.04) mg/dL Glucose 110 H (74-99) mg/dL Troponin I 0.054 H* (0.000-0.034) ng/mL 12/10/17 Range/Units 05:38 RBC (3.80-5.40) m/uL Hgb (11.4-16.0) gm/dL Hct (34.0-46.0) % RDW (11.5-15.5) % Chloride (98-107) mmol/L BUN (7-17) mg/dL Creatinine (0.52-1.04) mg/dL Glucose (74-99) mg/dL Troponin I 0.057 H* (0.000-0.034) ng/mL Microbiology - Last 24 Hours (Table) 12/09/17 11:00 Blood Culture - Preliminary Blood No Growth after 24 hours 12/09/17 23:54 Urine Culture - Preliminary Urine,Voided 12/09/17 16:30 Gram Stain - Preliminary Sputum Assessment and Plan Plan: -Sepsis: Secondary to influenza patient was started on Tamiflu. -Acute on chronic hypercapnic respiratory failure patient normally uses 2.5 L of oxygen at home patient will be started on oral steroids along with inhalational treatments patient was already started on levofloxacin which will be continued. Patient's COPD was precipitated by influenza. -Hypertension Hyperlipidemia -Coronary artery disease -Hypothyroidism -Mildly elevated troponin secondary to type II non-ST elevation myocardial infarction secondary to influenza For above-mentioned chronic medical problems which are fairly stable patient will be started on appropriate home medications.
[2017-12-10] MEDS: BUDESONIDE 1 MG/2 ML NEBU INHALATION SCH (19:52)
[2017-12-11] MEDS: SODIUM CHLORIDE 0.9% 1,000 ML IV SCH ×2 (01:21→11:04)
[2017-12-11] MEDS: IPRATROPIUM-ALBUTEROL 3 ML NEB INHALATION PRN (03:18)
[2017-12-11] MEDS: LEVOTHYROXINE 50 MCG TAB PO SCH (06:06)
[2017-12-11 06:35] LABS: Calcium 8.8 mg/dL (8.4-10.2); Potassium 4.6 mmol/L (3.5-5.1)
[2017-12-11] MEDS: BUDESONIDE 1 MG/2 ML NEBU INHALATION SCH ×2 (07:15→19:56)
[2017-12-11] MEDS: IPRATROPIUM-ALBUTEROL 3 ML NEB INHALATION SCH ×4 (07:15→19:56)
[2017-12-11] MEDS: predniSONE 20 MG TAB PO SCH (07:44)
[2017-12-11] MEDS: ISOSORBIDE MONONITRATE ER 30 MG TAB.ER.24H PO SCH (07:45)
[2017-12-11] MEDS: OSELTAMIVIR 60 MG/10 ML ORAL SYRINGE PO SCH (07:45)
[2017-12-11] MEDS: VIT A,C & E-LUTEIN-MINERALS 1 EACH TAB PO SCH ×2 (07:45→17:49)
[2017-12-11] MEDS: CALCIUM CARBONATE 500 MG CHEWABLE PO SCH (07:45)
[2017-12-11] MEDS: ASPIRIN 81 MG PO SCH (07:46)
[2017-12-11] MEDS: ATORVASTATIN 40 MG TAB PO SCH (07:46)
[2017-12-11] MEDS: ATENOLOL 50 MG TAB PO SCH ×2 (07:46→23:19)
[2017-12-11] MEDS: ALLOPURINOL 100 MG TAB PO SCH (07:46)
--- NOTE | 2017-12-11 10:43 | CDI ---
Last Revision, September 2017 Documentation Clarification Form Date: 12/11/2017 10:15:00 AM From: Malka Hazel RN, CCDS Admit Date: 12/09/2017 12:13:00 PM Patient Name: Muna Chau Visit Number: [id number] ATTENTION: The Clinical Documentation Specialists (CDI) and [facility] Coding Staff appreciate your assistance in clarifying documentation. Please respond to the clarification below the line at the bottom and electronically sign. The CDI & [facility] Coding staff will review the response and follow-up if needed. Please note: Queries are made part of the Legal Health Record. If you have any questions, please contact the author of this message via ITS. Dr. Susan Diaz History/Risk Factors: Chronic renal failure, CHF, COPD, hyperlipidemia, HTN, [place] Clinical Indicators: 12/10 Pulmonary Consult: Acute on chronic renal failure Current BUN: 57/55/44 CR:1.6/1.71/1.6 GFR: 09/26/16 Patients Baseline: BUN/CR/GFR: 58/1.18/44 Treatment: Patients medications include: Lasix 20 PO daily, Imdur 30mg po QD IVF: 1l IVF Bolus followed by 100 cc/hr In order to capture the severity of condition, please clarify if the condition signifies: CKD Stage 1 (GFR > 90) CKD Stage 2 (GFR 60-89) CKD Stage 3 (GFR 30-59) CKD Stage 4 (GFR 15-29) CKD Stage 5 (GFR <15) ESRD Other, please specify Unable to determine Please continue to document in your progress notes and discharge summary in order to capture severity of illness and risk of mortality. Include clinical findings that support your diagnosis. CKD Stage 3 MTDD
--- NOTE | 2017-12-11 11:16 | CDI ---
Last Revision, September 2017 Documentation Clarification Form Date: 12/11/2017 10:52:00 AM From: Malka Hazel RN, CCDS Admit Date: 12/09/2017 12:13:00 PM Patient Name: Muna Chau Visit Number: [id number] ATTENTION: The Clinical Documentation Specialists (CDI) and [facility] Coding Staff appreciate your assistance in clarifying documentation. Please respond to the clarification below the line at the bottom and electronically sign. The CDI & [facility] Coding staff will review the response and follow-up if needed. Please note: Queries are made part of the Legal Health Record. If you have any questions, please contact the author of this message via ITSYamil Oconnor DNP Heart failure is documented in the past medical hx and the patient is receiving treatment, please provide further specificity History/Risk Factors: Heart failure, HTN, Hyperlipidemia, [place], Pneumonia, thyroid disorder Clinical Indicators: VS/Pulse OX: Temp 101, HR 90, RR 16, B/P 167/70, Spo2 96% NC BNP: not checked Echocardiogram Results: 55-60% Chest X Ray: chronic emphysematous change with upper lung fibrosis but no suspicious acute pulmonary process. Treatment: Lasix 20 mg PO QD Tenormin 50 mg PO BID Imdur 30 mg PO QD In your professional opinion, can you please clarify the acuity and type of CHF if known? Chronic Systolic Heart Failure: Chronic Diastolic Heart Failure: Chronic Systolic & Diastolic Heart Failure: Unable to Determine Other, please specify Please continue to document in your progress notes and discharge summary in order to capture severity of illness and risk of mortality. Include clinical findings that support your diagnosis. MTDD
--- NOTE | 2017-12-11 11:38 | P.PN ---
Subjective Progress Note Date: 12/11/17 Principal diagnosis: Acute exacerbation of oxygen dependent chronic obstructive pulmonary disease, complicated by influenza B. This is a very pleasant 82-year-old female patient who follows with Dr. Charles as her primary care physician. She has a history of hypertension, hyperlipidemia, myocardial infarction, hypothyroidism, chronic renal failure, iron deficiency anemia. She also follows with Dr. 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 Her FEV1 value is 35% of predicted. She was last seen a few weeks ago and was doing well at that time. She presented here to the emergency room yesterday with complaints of increasing shortness of breath, yellow productive sputum, chills. She also had some right-sided chest wall pain. More so on inhalation. 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 There is a persistent 1.8 cm left upper lobe nodule which correlates with a cavitary lesion on a previous computed tomography scan. No acute pulmonary process. Sputum culture is pending. The patient was found to be influenza B+. No leukocytosis. Borderline troponin leak. Echocardiogram pending Creatinine 1.71. She is seen today in consultation on the selective care unit. She is currently awake and alert in no acute distress. She is breathing slightly better today as compared to yesterday. The yellow productive sputum has cleared. No hemoptysis. She is currently afebrile. She did have a T-max of 101.0. She is maintaining good O2 saturations in the upper 90s on 2 L/m per nasal cannula. She's been hemodynamically stable. The patient is seen again today 12/11/2017 in follow-up on the selective care unit. She is awake and alert in no acute distress. She is resting comfortably in bed. She is maintaining good O2 saturations up to 100% on 2 L/m per nasal cannula. She's been afebrile. Hemodynamically stable. Blood culture reveals no growth to date. She remains on antibiotics and Tamiflu. Echocardiogram revealed preserved left ventricular systolic function with ejection fraction 55- 60%. There is noted mild to moderate aortic stenosis. Objective - Vital Signs Vital signs: Vital Signs Temp 97.5 F L 12/11/17 08:00 Pulse 80 12/11/17 11:00 Resp 18 12/11/17 10:52 BP 125/56 12/11/17 08:00 Pulse Ox 100 12/11/17 08:00 Intake & Output 12/10/17 12/11/17 12/11/17 18:59 06:59 18:59 Intake Total 360 300 Output Total 200 Balance 360 100 Weight 64 kg Intake: Oral 360 300 Output: Urine 200 Other: Voiding Method Toilet # Voids 1 - Exam GENERAL EXAM: Alert, comfortable in no apparent distress. HEAD: Normocephalic. EYES: Normal reaction of pupils, equal size. NOSE: Clear with pink turbinates. THROAT: No erythema or exudates. NECK: No masses, no JVD. CHEST: No chest wall deformity. LUNGS: Equal air entry with end expiratory wheeze. Diminished. CVS: S1 and S2 normal with no audible murmur, regular rhythm. ABDOMEN: No hepatosplenomegaly, normal bowel sounds, no guarding or rigidity. SPINE: No scoliosis or deformity SKIN: No rashes, ecchymosis from chronic steroids. CENTRAL NERVOUS SYSTEM: No focal deficits, tone is normal in all 4 extremities. EXTREMITIES: There is no peripheral edema. No clubbing, no cyanosis. Peripheral pulses are intact. - Labs CBC & Chem 7: 12/10/17 05:38 12/11/17 05:37 Labs: Abnormal Lab Results - Last 24 Hours (Table) 12/11/17 Range/Units 05:37 Chloride 108 H (98-107) mmol/L BUN 44 H (7-17) mg/dL Creatinine 1.60 H (0.52-1.04) mg/dL Microbiology - Last 24 Hours (Table) 12/09/17 11:00 Blood Culture - Preliminary Blood No Growth after 24 hours 12/09/17 23:54 Urine Culture - Preliminary Urine,Voided Assessment and Plan Assessment: Impression: #1 Acute exacerbation of oxygen dependent chronic obstructive pulmonary disease secondary to acute influenza B infection. #2 Acute on chronic hypoxic respiratory failure secondary to above #3 Mild troponin leak. #4 History of coronary artery disease with previous stent placement. #5 Acute on chronic renal failure. #6 Hypothyroidism. #7 Hypertension. #8 Hyperlipidemia. #9 Poor overall functional performance based on the above-mentioned multiple comorbidities. Plan: The patient was seen and evaluated by Dr. Colon. We'll continue with her current pulmonary medications including DuoNeb inhalations 4 times a day and as needed, Pulmicort inhalations twice a day. Continue prednisone taper. Continue Levaquin. Continue Tamiflu. Await sputum culture. Echocardiogram revealed preserved left ventricular systolic function with an ejection fraction 55-60%. There is mild to moderate aortic stenosis. We will continue to follow and make further recommendations based on her clinical status. I, the cosigning physician, performed a history & physical examination of the patient. Lungs sounds have end expiratory wheeze bilaterally. Diminished. Maintaining good O2 saturations in the 90s on 2 L/m per nasal cannula. I discussed the assessment and plan of care with my nurse practitioner, Kelly Merchant. I attest to the above note as dictated by her.
[2017-12-11] MEDS: GLYCOPYRROLATE INHALATION SCH (13:23)
[2017-12-11] MEDS: INDACATEROL INHALATION SCH (13:23)
--- NOTE | 2017-12-11 17:05 | P.PN ---
Subjective Patient was admitted for influenza bronchitis and COPD exacerbation patient is presently on 2.5 L saturating at 96% on room air at rest. complaining of shortness of breath. 12/11/2017 No overnight events,no significant improvement in her respiratory status Constitutional: Denied any fatigue denied any fever. Cardio vascular: denied any chest pain, palpitations Gastrointestinal denied any nausea vomiting Pulmonary: As mentioned in HPI Neurologic denied any new focal deficits Objective - Vital Signs Vital signs: Vital Signs Temp 97.3 F L 12/11/17 15:00 Pulse 78 12/11/17 15:26 Resp 16 12/11/17 15:00 BP 136/61 12/11/17 15:00 Pulse Ox 96 12/11/17 15:13 Intake & Output 12/10/17 12/11/17 12/11/17 18:59 06:59 18:59 Intake Total 360 300 Output Total 200 Balance 360 100 Weight 64 kg Intake: Oral 360 300 Output: Urine 200 Other: Voiding Method Toilet # Voids 1 - Exam PHYSICAL EXAMINATION: GENERAL: The patient is alert and oriented x3, not in any acute distress. Well developed, well nourished. HEENT: Pupils are round and equally reacting to light. EOMI. No scleral icterus. No conjunctival pallor. Normocephalic, atraumatic. No pharyngeal erythema. No thyromegaly. CARDIOVASCULAR: S1 and S2 present. No murmurs, rubs, or gallops. PULMONARY: Fairly good air entry into bilateral lung campbell with expiratory wheezing was heard ABDOMEN: Soft, nontender, nondistended, normoactive bowel sounds. No palpable organomegaly. MUSCULOSKELETAL: No joint swelling or deformity. EXTREMITIES: No cyanosis, clubbing, or pedal edema. NEUROLOGICAL: Gross neurological examination did not reveal any focal deficits. SKIN: No rashes. - Labs CBC & Chem 7: 12/10/17 05:38 12/11/17 05:37 Labs: Abnormal Lab Results - Last 24 Hours (Table) 12/11/17 Range/Units 05:37 Chloride 108 H (98-107) mmol/L BUN 44 H (7-17) mg/dL Creatinine 1.60 H (0.52-1.04) mg/dL Microbiology - Last 24 Hours (Table) 12/09/17 23:54 Urine Culture - Final Urine,Voided 12/09/17 16:30 Gram Stain - Final Sputum Sputum Culture - Final 12/09/17 11:00 Blood Culture - Preliminary Blood No Growth after 48 hours Assessment and Plan Plan: -Sepsis: Secondary to influenza patient was started on Tamiflu. -Acute on chronic hypercapnic respiratory failure patient normally uses 2.5 L of oxygen at home patient will be started on oral steroids along with inhalational treatments patient was already started on levofloxacin which will be continued. Patient's COPD was precipitated by influenza. -Hypertension Hyperlipidemia -Coronary artery disease -Hypothyroidism -Mildly elevated troponin secondary to type II non-ST elevation myocardial infarction secondary to influenza For above-mentioned chronic medical problems which are fairly stable patient will be started on appropriate home medications.
[2017-12-12] MEDS: IPRATROPIUM-ALBUTEROL 3 ML NEB INHALATION PRN (02:57)
[2017-12-12] MEDS: LEVOTHYROXINE 50 MCG TAB PO SCH (06:29)
[2017-12-12] MEDS: predniSONE 20 MG TAB PO SCH (08:31)
[2017-12-12] MEDS: ATENOLOL 50 MG TAB PO SCH ×2 (08:31→20:51)
[2017-12-12] MEDS: OSELTAMIVIR 60 MG/10 ML ORAL SYRINGE PO SCH (08:32)
[2017-12-12] MEDS: ASPIRIN 81 MG PO SCH (08:32)
[2017-12-12] MEDS: ALLOPURINOL 100 MG TAB PO SCH (08:32)
[2017-12-12] MEDS: ISOSORBIDE MONONITRATE ER 30 MG TAB.ER.24H PO SCH (08:32)
[2017-12-12] MEDS: ATORVASTATIN 40 MG TAB PO SCH (08:32)
[2017-12-12] MEDS: IPRATROPIUM-ALBUTEROL 3 ML NEB INHALATION SCH ×4 (08:35→19:41)
[2017-12-12] MEDS: BUDESONIDE 1 MG/2 ML NEBU INHALATION SCH ×2 (08:35→19:41)
[2017-12-12 08:41] LABS: Anisocytosis Slight; HCT 33.2 % (34.0-46.0); HGB 10.5 gm/dL (11.4-16.0); Hypochromasia Slight; MCH 30.4 pg (25.0-35.0); MCHC 31.5 g/dL (31.0-37.0); MCV 96.3 fL (80.0-100.0); Mean Platelet Volume 7.2; Platelet Count 193 k/uL (150-450); RBC 3.44 m/uL (3.80-5.40); RDW 16.1 % (11.5-15.5); WBC 7.6 k/uL (3.8-10.6)
[2017-12-12 08:49] LABS: Calcium 9.2 mg/dL (8.4-10.2); Potassium 4.8 mmol/L (3.5-5.1)
[2017-12-12] MEDS ORDERED: LEVOFLOXACIN 250 MG TAB PO SCH (09:00)
--- NOTE | 2017-12-12 10:11 | P.PN ---
Subjective Progress Note Date: 12/12/17 Principal diagnosis: Acute exacerbation of oxygen dependent chronic obstructive pulmonary disease, complicated by influenza B This is a very pleasant 82-year-old female patient who follows with Dr. Charles as her primary care physician. She has a history of hypertension, hyperlipidemia, myocardial infarction, hypothyroidism, chronic renal failure, iron deficiency anemia. She also follows with Dr. 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 Her FEV1 value is 35% of predicted. She was last seen a few weeks ago and was doing well at that time. She presented here to the emergency room yesterday with complaints of increasing shortness of breath, yellow productive sputum, chills. She also had some right-sided chest wall pain. More so on inhalation. 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 There is a persistent 1.8 cm left upper lobe nodule which correlates with a cavitary lesion on a previous computed tomography scan. No acute pulmonary process. Sputum culture is pending. The patient was found to be influenza B+. No leukocytosis. Borderline troponin leak. Echocardiogram pending Creatinine 1.71. She is seen today in consultation on the selective care unit. She is currently awake and alert in no acute distress. She is breathing slightly better today as compared to yesterday. The yellow productive sputum has cleared. No hemoptysis. She is currently afebrile. She did have a T-max of 101.0. She is maintaining good O2 saturations in the upper 90s on 2 L/m per nasal cannula. She's been hemodynamically stable. The patient is seen again today 12/11/2017 in follow-up on the selective care unit. She is awake and alert in no acute distress. She is resting comfortably in bed. She is maintaining good O2 saturations up to 100% on 2 L/m per nasal cannula. She's been afebrile. Hemodynamically stable. Blood culture reveals no growth to date. She remains on antibiotics and Tamiflu. Echocardiogram revealed preserved left ventricular systolic function with ejection fraction 55- 60%. There is noted mild to moderate aortic stenosis. On 12/12/2017 patient seen in follow-up in the surgical floor. She states she could not sleep at all last night due to increased dyspnea, chest congestion, and persistent coughing. Lung sounds are positive for diffuse wheezing throughout the lung campbell, with scattered rhonchi. Patient has a very loose productive congested cough, with production of small amount of yellowish sputum. Continues on combination of Tamiflu and Levaquin, DuoNeb nebulized treatments, and oral prednisone. She has been ambulating to the bathroom, however becomes very dyspneic with any amount of exertion. She is afebrile, she is on 2 L per nasal cannula with O2 sat 97%. Other vitals are stable. Blood, urine and sputum cultures remain negative. Today's lab work shows a PVC of 7.6, hemoglobin of 10.5, renal profile is improving, BUN is down to 42 from 44, creatinine is down to 1.33 from 1.6 from yesterday's labs. Objective - Vital Signs Vital signs: Vital Signs Temp 97.0 F L 12/12/17 07:00 Pulse 88 12/12/17 08:56 Resp 24 12/12/17 07:00 BP 151/80 12/12/17 07:00 Pulse Ox 97 12/12/17 07:00 Intake & Output 12/11/17 12/12/17 12/12/17 18:59 06:59 18:59 Intake Total 240 Balance 240 Intake: Oral 240 Other: # Voids 3 - Exam GENERAL EXAM: Alert, comfortable in no apparent distress. HEAD: Normocephalic. EYES: Normal reaction of pupils, equal size. NOSE: Clear with pink turbinates. THROAT: No erythema or exudates. NECK: No masses, no JVD. CHEST: No chest wall deformity. LUNGS: Equal air entry with diffuse wheezing throughout the lung campbell and scattered rhonchi. Patient is significantly dyspneic with any amount of exertion CVS: S1 and S2 normal with no audible murmur, regular rhythm. ABDOMEN: No hepatosplenomegaly, normal bowel sounds, no guarding or rigidity. SPINE: No scoliosis or deformity SKIN: No rashes, ecchymosis from chronic steroids. CENTRAL NERVOUS SYSTEM: No focal deficits, tone is normal in all 4 extremities. EXTREMITIES: There is no peripheral edema. No clubbing, no cyanosis. Peripheral pulses are intact. - Labs CBC & Chem 7: 12/12/17 08:08 12/12/17 08:08 Labs: Abnormal Lab Results - Last 24 Hours (Table) 12/12/17 12/12/17 Range/Units 08:08 08:08 RBC 3.44 L (3.80-5.40) m/uL Hgb 10.5 L (11.4-16.0) gm/dL Hct 33.2 L (34.0-46.0) % RDW 16.1 H (11.5-15.5) % Chloride 110 H (98-107) mmol/L BUN 42 H (7-17) mg/dL Creatinine 1.33 H (0.52-1.04) mg/dL Microbiology - Last 24 Hours (Table) 12/09/17 23:54 Urine Culture - Final Urine,Voided 12/09/17 16:30 Gram Stain - Final Sputum Sputum Culture - Final 12/09/17 11:00 Blood Culture - Preliminary Blood No Growth after 48 hours Assessment and Plan Plan: Assessment: #1 Acute exacerbation of oxygen dependent chronic obstructive pulmonary disease secondary to acute influenza B infection. #2 Acute on chronic hypoxic respiratory failure secondary to above #3 Mild troponin leak. #4 History of coronary artery disease with previous stent placement. #5 Acute on chronic renal failure. #6 Hypothyroidism. #7 Hypertension. #8 Hyperlipidemia. #9 Poor overall functional performance based on the above-mentioned multiple comorbidities. Plan: Patient is significantly dyspneic with any kind of exertion, she states she had a bad night last night related to increased dyspnea, wheezing, and persistent coughing. No new chest x-rays today, her lab work is negative for any leukocytosis, renal profile is improving. We will change oral prednisone to IV Solu-Medrol 60 mg every 6 hours. Continue Levaquin and Tamiflu. Continue other nebulized treatments. We'll continue to monitor I performed a history & physical examination of the patient and discussed their management with my nurse practitioner, Eva Watson. I reviewed the nurse practitioner's note and agree with the documented findings and plan of care. Lung sounds are positive for diffuse wheezes throughout the lung campbell. The findings and the impression was discussed with the patient. I attest to the documentation by the nurse practitioner. Time with Patient: Less than 30
[2017-12-12] MEDS: CALCIUM CARBONATE 500 MG CHEWABLE PO SCH (11:22)
[2017-12-12] MEDS: methylPREDNISolone SOD SUCCI 125 MG/2 ML VIAL IV SCH ×2 (11:22→17:28)
[2017-12-12] MEDS: VIT A,C & E-LUTEIN-MINERALS 1 EACH TAB PO SCH ×2 (11:22→17:28)
--- NOTE | 2017-12-12 20:46 | P.PN ---
<Marixa Gabriel - Last Filed: 12/12/17 20:39> Subjective Progress Note Date: 12/12/17 Progress note being dictated for Dr. Diaz Interval history: This is an 82-year-old female admitted with acute influenza B bronchitis, COPD exacerbation and multiple other medical issues. No overnight events. Maintained on Levaquin, nebulized bronchodilators, steroids, Tamiflu .Wheezing persists. Reports did not sleep well and feels tired. Complains of exertional dyspnea with minimal activity. Renal function improving. Afebrile. Sputum, blood, urine cultures negative Objective - Vital Signs Vital signs: Vital Signs Temp 97.8 F 12/12/17 15:00 Pulse 83 12/12/17 15:23 Resp 16 12/12/17 15:00 BP 116/74 12/12/17 15:00 Pulse Ox 94 L 12/12/17 15:00 Intake & Output 12/11/17 12/12/17 12/12/17 18:59 06:59 18:59 Intake Total 240 Balance 240 Intake: Oral 240 Other: # Voids 3 2 # Bowel Movements 1 - Exam GENERAL: The patient is alert and oriented x3, not in any acute distress. Well developed, well nourished. HEENT: Pupils are round and equally reacting to light. EOMI. No scleral icterus. No conjunctival pallor. Normocephalic, atraumatic. No pharyngeal erythema. No thyromegaly. CARDIOVASCULAR: S1 and S2 present. No murmurs, rubs, or gallops. PULMONARY: Fairly good air entry into bilateral lung campbell with rhonchi and expiratory wheezing ABDOMEN: Soft, nontender, nondistended, normoactive bowel sounds. No palpable organomegaly. MUSCULOSKELETAL: No joint swelling or deformity. EXTREMITIES: No cyanosis, clubbing, or pedal edema. NEUROLOGICAL: Gross neurological examination did not reveal any focal deficits. SKIN: No rashes. Microbiology 12/09/17 11:00 Blood Blood Culture - Preliminary No Growth after 72 hours 12/09/17 23:54 Urine,Voided Urine Culture - Final 12/09/17 16:30 Sputum Gram Stain - Final 12/09/17 16:30 Sputum Sputum Culture - Final - Labs CBC & Chem 7: 12/12/17 08:08 12/12/17 08:08 Labs: Abnormal Lab Results - Last 24 Hours (Table) 12/12/17 12/12/17 Range/Units 08:08 08:08 RBC 3.44 L (3.80-5.40) m/uL Hgb 10.5 L (11.4-16.0) gm/dL Hct 33.2 L (34.0-46.0) % RDW 16.1 H (11.5-15.5) % Chloride 110 H (98-107) mmol/L BUN 42 H (7-17) mg/dL Creatinine 1.33 H (0.52-1.04) mg/dL Microbiology - Last 24 Hours (Table) 12/09/17 11:00 Blood Culture - Preliminary Blood No Growth after 72 hours 12/09/17 23:54 Urine Culture - Final Urine,Voided 12/09/17 16:30 Gram Stain - Final Sputum Sputum Culture - Final Assessment and Plan Assessment: -Sepsis: Secondary to influenza patient was started on Tamiflu. -Acute on chronic hypercapnic respiratory failure patient normally uses 2.5 L of oxygen at home patient will be started on oral steroids along with inhalational treatments patient was already started on levofloxacin which will be continued. Patient's COPD was precipitated by influenza. -Hypertension Hyperlipidemia -Coronary artery disease -Hypothyroidism -Mildly elevated troponin secondary to type II non-ST elevation myocardial infarction secondary to influenza Plan: Continue on current medication regime ,monitoring. Maintain nebulized bronchodilators, antibiotics, Tamiflu, steroids. Steroid tapering in progress as per pulmonary. Increase ambulation as tolerated. Follow closely with pulmonary. The impression and plan of care has been dictated as directed. : I performed a history and examination of this patient, discussed the same with the dictator. I agree with the dictator's note ,documented as a scribe. Any additional findings or plans will be noted. <Susan Diaz - Last Filed: 12/12/17 21:05> Subjective Principal diagnosis: CKD Stage 3 Objective - Vital Signs Vital signs: Vital Signs Temp 97.8 F 12/12/17 15:00 Pulse 83 12/12/17 20:50 Resp 20 12/12/17 20:50 BP 134/78 12/12/17 20:50 Pulse Ox 100 12/12/17 20:50 Intake & Output 12/12/17 12/12/17 12/13/17 06:59 18:59 06:59 Intake Total 240 Balance 240 Intake: Oral 240 Other: # Voids 3 2 # Bowel Movements 1 - Labs CBC & Chem 7: 12/12/17 08:08 12/12/17 08:08 Labs: Abnormal Lab Results - Last 24 Hours (Table) 12/12/17 12/12/17 Range/Units 08:08 08:08 RBC 3.44 L (3.80-5.40) m/uL Hgb 10.5 L (11.4-16.0) gm/dL Hct 33.2 L (34.0-46.0) % RDW 16.1 H (11.5-15.5) % Chloride 110 H (98-107) mmol/L BUN 42 H (7-17) mg/dL Creatinine 1.33 H (0.52-1.04) mg/dL Microbiology - Last 24 Hours (Table) 12/09/17 11:00 Blood Culture - Preliminary Blood No Growth after 72 hours
[2017-12-12] MEDS: INDACATEROL INHALATION SCH (20:49)
[2017-12-12] MEDS: GLYCOPYRROLATE INHALATION SCH (20:49)
[2017-12-12] MEDS: LATANOPROST 0.005% OPHTH DROPS 2.5 ML BTL BOTH EYES SCH (22:25)
[2017-12-13] MEDS: methylPREDNISolone SOD SUCCI 125 MG/2 ML VIAL IV SCH ×4 (00:28→16:55)
[2017-12-13] MEDS: IPRATROPIUM-ALBUTEROL 3 ML NEB INHALATION PRN ×2 (00:33→03:52)
[2017-12-13] MEDS: LEVOTHYROXINE 50 MCG TAB PO SCH (06:44)
[2017-12-13] MEDS: IPRATROPIUM-ALBUTEROL 3 ML NEB INHALATION SCH ×4 (07:08→18:57)
[2017-12-13] MEDS: BUDESONIDE 1 MG/2 ML NEBU INHALATION SCH ×2 (07:08→18:57)
[2017-12-13] MEDS: OSELTAMIVIR 60 MG/10 ML ORAL SYRINGE PO SCH (09:42)
[2017-12-13] MEDS: ASPIRIN 81 MG PO SCH (09:43)
[2017-12-13] MEDS: INDACATEROL INHALATION SCH (09:43)
[2017-12-13] MEDS: ALLOPURINOL 100 MG TAB PO SCH (09:43)
[2017-12-13] MEDS: ATENOLOL 50 MG TAB PO SCH ×2 (09:43→21:52)
[2017-12-13] MEDS: GLYCOPYRROLATE INHALATION SCH (09:43)
[2017-12-13] MEDS: ATORVASTATIN 40 MG TAB PO SCH (09:44)
[2017-12-13] MEDS: ISOSORBIDE MONONITRATE ER 30 MG TAB.ER.24H PO SCH (09:44)
--- NOTE | 2017-12-13 09:58 | P.PN ---
Subjective Progress Note Date: 12/13/17 Principal diagnosis: Acute exacerbation of oxygen dependent chronic obstructive pulmonary disease, complicated by influenza B This is a very pleasant 82-year-old female patient who follows with Dr. Charles as her primary care physician. She has a history of hypertension, hyperlipidemia, myocardial infarction, hypothyroidism, chronic renal failure, iron deficiency anemia. She also follows with Dr. 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 Her FEV1 value is 35% of predicted. She was last seen a few weeks ago and was doing well at that time. She presented here to the emergency room yesterday with complaints of increasing shortness of breath, yellow productive sputum, chills. She also had some right-sided chest wall pain. More so on inhalation. 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 There is a persistent 1.8 cm left upper lobe nodule which correlates with a cavitary lesion on a previous computed tomography scan. No acute pulmonary process. Sputum culture is pending. The patient was found to be influenza B+. No leukocytosis. Borderline troponin leak. Echocardiogram pending Creatinine 1.71. She is seen today in consultation on the selective care unit. She is currently awake and alert in no acute distress. She is breathing slightly better today as compared to yesterday. The yellow productive sputum has cleared. No hemoptysis. She is currently afebrile. She did have a T-max of 101.0. She is maintaining good O2 saturations in the upper 90s on 2 L/m per nasal cannula. She's been hemodynamically stable. The patient is seen again today 12/11/2017 in follow-up on the selective care unit. She is awake and alert in no acute distress. She is resting comfortably in bed. She is maintaining good O2 saturations up to 100% on 2 L/m per nasal cannula. She's been afebrile. Hemodynamically stable. Blood culture reveals no growth to date. She remains on antibiotics and Tamiflu. Echocardiogram revealed preserved left ventricular systolic function with ejection fraction 55- 60%. There is noted mild to moderate aortic stenosis. On 12/12/2017 patient seen in follow-up in the surgical floor. She states she could not sleep at all last night due to increased dyspnea, chest congestion, and persistent coughing. Lung sounds are positive for diffuse wheezing throughout the lung campbell, with scattered rhonchi. Patient has a very loose productive congested cough, with production of small amount of yellowish sputum. Continues on combination of Tamiflu and Levaquin, DuoNeb nebulized treatments, and oral prednisone. She has been ambulating to the bathroom, however becomes very dyspneic with any amount of exertion. She is afebrile, she is on 2 L per nasal cannula with O2 sat 97%. Other vitals are stable. Blood, urine and sputum cultures remain negative. Today's lab work shows a PVC of 7.6, hemoglobin of 10.5, renal profile is improving, BUN is down to 42 from 44, creatinine is down to 1.33 from 1.6 from yesterday's labs. On 12/13/2017 patient seen in follow-up. Still remains quite dyspneic and wheezy. Lung sounds are slightly improved from yesterday's exam. She is bringing up some clear yellowish sputum. Overall remains about the same, with significant activity limitation and wheezing. She will continue on current plan of treatment, with IV steroids, Tamiflu, Levaquin, nebulized treatments. Not ready to go home today. No new lab work were chest x-rays today. She did have a low-grade fever this morning, with 100F. Hemodynamically stable, remains on 3 L per nasal cannula with O2 sat at 99%. Objective - Vital Signs Vital signs: Vital Signs Temp 100 F H 12/13/17 07:00 Pulse 80 12/13/17 07:25 Resp 20 12/13/17 07:00 BP 145/71 12/13/17 07:00 Pulse Ox 99 12/13/17 07:00 Intake & Output 12/12/17 12/13/17 12/13/17 18:59 06:59 18:59 Intake Total 240 100 Balance 240 100 Intake: Oral 240 100 Other: Voiding Method Toilet # Voids 2 1 # Bowel Movements 1 - Exam GENERAL EXAM: Alert, comfortable in no apparent distress. HEAD: Normocephalic. EYES: Normal reaction of pupils, equal size. NOSE: Clear with pink turbinates. THROAT: No erythema or exudates. NECK: No masses, no JVD. CHEST: No chest wall deformity. LUNGS: Equal air entry with diffuse wheezing throughout the lung campbell and scattered rhonchi. Patient is significantly dyspneic with any amount of exertion CVS: S1 and S2 normal with no audible murmur, regular rhythm. ABDOMEN: No hepatosplenomegaly, normal bowel sounds, no guarding or rigidity. SPINE: No scoliosis or deformity SKIN: No rashes, ecchymosis from chronic steroids. CENTRAL NERVOUS SYSTEM: No focal deficits, tone is normal in all 4 extremities. EXTREMITIES: There is no peripheral edema. No clubbing, no cyanosis. Peripheral pulses are intact. - Labs CBC & Chem 7: 12/12/17 08:08 12/12/17 08:08 Labs: Microbiology - Last 24 Hours (Table) 12/09/17 11:00 Blood Culture - Preliminary Blood No Growth after 72 hours Assessment and Plan Plan: Assessment: #1 Acute exacerbation of oxygen dependent chronic obstructive pulmonary disease secondary to acute influenza B infection. #2 Acute on chronic hypoxic respiratory failure secondary to above #3 Mild troponin leak. #4 History of coronary artery disease with previous stent placement. #5 Acute on chronic renal failure. #6 Hypothyroidism. #7 Hypertension. #8 Hyperlipidemia. #9 Poor overall functional performance based on the above-mentioned multiple comorbidities. Plan: Continue current plan of treatment, continue Tamiflu, Levaquin, DuoNeb nebulized treatments. Continue IV Solu-Medrol 60 mg every 6 hours. Patient remains dyspneic and wheezy. Ready for discharge today. She will most likely remain in the hospital through the weekend. We'll obtain a set of blood work in the morning. I performed a history & physical examination of the patient and discussed their management with my nurse practitioner, Eva Watson. I reviewed the nurse practitioner's note and agree with the documented findings and plan of care. Lung sounds are positive for diffuse wheezes throughout the lung campbell. The findings and the impression was discussed with the patient. I attest to the documentation by the nurse practitioner. Time with Patient: Less than 30
[2017-12-13] MEDS: CALCIUM CARBONATE 500 MG CHEWABLE PO SCH (12:57)
[2017-12-13] MEDS: VIT A,C & E-LUTEIN-MINERALS 1 EACH TAB PO SCH ×2 (12:57→16:55)
[2017-12-13] MEDS: ACETAMINOPHEN TAB 325 MG TAB PO PRN ×2 (13:07→21:52)
--- NOTE | 2017-12-13 15:01 | P.PN ---
Subjective Principal diagnosis: CKD Stage 3 Patient was admitted for influenza bronchitis and COPD exacerbation patient is presently on 2.5 L saturating at 96% on room air at rest. complaining of shortness of breath. 12/11/2017 No overnight events,no significant improvement in her respiratory status 12/13/2017 Patient's overall clinical status remains the same Constitutional: Denied any fatigue denied any fever. Cardio vascular: denied any chest pain, palpitations Gastrointestinal denied any nausea vomiting Pulmonary: As mentioned in HPI Neurologic denied any new focal deficits Objective - Vital Signs Vital signs: Vital Signs Temp 100 F H 12/13/17 07:00 Pulse 92 12/13/17 11:18 Resp 20 12/13/17 07:00 BP 145/71 12/13/17 07:00 Pulse Ox 99 12/13/17 07:00 Intake & Output 12/12/17 12/13/17 12/13/17 18:59 06:59 18:59 Intake Total 240 100 Balance 240 100 Intake: Oral 240 100 Other: Voiding Method Toilet # Voids 2 1 2 # Bowel Movements 1 1 - Exam PHYSICAL EXAMINATION: GENERAL: The patient is alert and oriented x3, not in any acute distress. Well developed, well nourished. HEENT: Pupils are round and equally reacting to light. EOMI. No scleral icterus. No conjunctival pallor. Normocephalic, atraumatic. No pharyngeal erythema. No thyromegaly. CARDIOVASCULAR: S1 and S2 present. No murmurs, rubs, or gallops. PULMONARY: Fairly good air entry into bilateral lung campbell with expiratory wheezing was heard ABDOMEN: Soft, nontender, nondistended, normoactive bowel sounds. No palpable organomegaly. MUSCULOSKELETAL: No joint swelling or deformity. EXTREMITIES: No cyanosis, clubbing, or pedal edema. NEUROLOGICAL: Gross neurological examination did not reveal any focal deficits. SKIN: No rashes. - Labs CBC & Chem 7: 12/12/17 08:08 12/12/17 08:08 Labs: Microbiology - Last 24 Hours (Table) 12/09/17 11:00 Blood Culture - Preliminary Blood No Growth after 96 hours Assessment and Plan Plan: -Sepsis: Secondary to influenza patient was started on Tamiflu. -Acute on chronic hypercapnic respiratory failure patient normally uses 2.5 L of oxygen at home patient will be started on oral steroids along with inhalational treatments patient was already started on levofloxacin which will be continued. Patient's COPD was precipitated by influenza. -Hypertension Hyperlipidemia -Coronary artery disease -Hypothyroidism -Mildly elevated troponin secondary to type II non-ST elevation myocardial infarction secondary to influenza For above-mentioned chronic medical problems which are fairly stable patient will be started on appropriate home medications.
--- NOTE | 2017-12-13 15:45 | XR ---
EXAMINATION TYPE: XR chest 1V portable DATE OF EXAM: 12/13/2017 COMPARISON: 12/10/2017 HISTORY: Shortness of breath TECHNIQUE: Single frontal view of the chest is obtained. FINDINGS: Corresponding to the known cavitary lesion in the left upper lobe there is a focal approxi mately 1.8 cm density. Coarse interstitial lung markings are again most pronounced at the apices Elev ation of the right minor fissure is again noted. Pulmonary hyperinflation corresponds to the patient' s known history of underlying COPD. Cardiac size is within normal limits. No new focal consolidation, pleural effusion or pneumothorax. Osseous structures are again mildly demineralized. IMPRESSION: No new focal consolidation to suggest pneumonia in this patient with known influenza. In terstitial prominence suggesting fibrosis on a background of COPD.
[2017-12-13] MEDS: LATANOPROST 0.005% OPHTH DROPS 2.5 ML BTL BOTH EYES SCH (21:54)
[2017-12-14] MEDS: IPRATROPIUM-ALBUTEROL 3 ML NEB INHALATION PRN (00:26)
[2017-12-14] MEDS: methylPREDNISolone SOD SUCCI 125 MG/2 ML VIAL IV SCH ×4 (00:33→17:55)
[2017-12-14] MEDS: LEVOTHYROXINE 50 MCG TAB PO SCH (06:57)
[2017-12-14 08:06] LABS: Basophils % (A) 0 %; Eosinophils % (A) 0 %; HCT 36.4 % (34.0-46.0); HGB 11.4 gm/dL (11.4-16.0); Hypochromasia Slight; Lymphocytes # (A) 0.3 k/uL (1.0-4.8); Lymphocytes % (A) 2 %; MCH 30.1 pg (25.0-35.0); MCHC 31.4 g/dL (31.0-37.0); MCV 95.6 fL (80.0-100.0); Mean Platelet Volume 7.2; Monocytes # (A) 0.4 k/uL (0-1.0); Monocytes % (A) 3 %; Neutrophils # (A) 12.9 k/uL (1.3-7.7); Neutrophils % (A) 95 %; Platelet Count 211 k/uL (150-450); RDW 15.6 % (11.5-15.5); WBC 13.7 k/uL (3.8-10.6)
[2017-12-14] MEDS: BUDESONIDE 1 MG/2 ML NEBU INHALATION SCH ×2 (08:07→20:21)
[2017-12-14] MEDS: IPRATROPIUM-ALBUTEROL 3 ML NEB INHALATION SCH ×4 (08:07→20:21)
[2017-12-14 08:37] LABS: Calcium 9.6 mg/dL (8.4-10.2)
[2017-12-14 08:44] LABS: Potassium 5.3 mmol/L (3.5-5.1)
[2017-12-14] MEDS ORDERED: LEVOFLOXACIN 500 MG TAB PO SCH (09:00)
[2017-12-14] MEDS: ISOSORBIDE MONONITRATE ER 30 MG TAB.ER.24H PO SCH (09:11)
[2017-12-14] MEDS: ATORVASTATIN 40 MG TAB PO SCH (09:11)
[2017-12-14] MEDS: ASPIRIN 81 MG PO SCH (09:11)
[2017-12-14] MEDS: ATENOLOL 50 MG TAB PO SCH ×2 (09:11→21:15)
[2017-12-14] MEDS: OSELTAMIVIR 60 MG/10 ML ORAL SYRINGE PO SCH (09:11)
[2017-12-14] MEDS: ALLOPURINOL 100 MG TAB PO SCH (09:11)
[2017-12-14] MEDS: ACETAMINOPHEN TAB 325 MG TAB PO PRN (09:15)
[2017-12-14] MEDS: VIT A,C & E-LUTEIN-MINERALS 1 EACH TAB PO SCH ×2 (13:20→17:56)
--- NOTE | 2017-12-14 13:40 | P.PN ---
Subjective Progress Note Date: 12/14/17 Principal diagnosis: Acute exacerbation of oxygen dependent chronic obstructive pulmonary disease, complicated by influenza B. This is a very pleasant 82-year-old female patient who follows with Dr. Charles as her primary care physician. She has a history of hypertension, hyperlipidemia, myocardial infarction, hypothyroidism, chronic renal failure, iron deficiency anemia. She also follows with Dr. 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 Her FEV1 value is 35% of predicted. She was last seen a few weeks ago and was doing well at that time. She presented here to the emergency room yesterday with complaints of increasing shortness of breath, yellow productive sputum, chills. She also had some right-sided chest wall pain. More so on inhalation. 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 There is a persistent 1.8 cm left upper lobe nodule which correlates with a cavitary lesion on a previous computed tomography scan. No acute pulmonary process. Sputum culture is pending. The patient was found to be influenza B+. No leukocytosis. Borderline troponin leak. Echocardiogram pending Creatinine 1.71. She is seen today in consultation on the selective care unit. She is currently awake and alert in no acute distress. She is breathing slightly better today as compared to yesterday. The yellow productive sputum has cleared. No hemoptysis. She is currently afebrile. She did have a T-max of 101.0. She is maintaining good O2 saturations in the upper 90s on 2 L/m per nasal cannula. She's been hemodynamically stable. The patient is seen again today 12/11/2017 in follow-up on the selective care unit. She is awake and alert in no acute distress. She is resting comfortably in bed. She is maintaining good O2 saturations up to 100% on 2 L/m per nasal cannula. She's been afebrile. Hemodynamically stable. Blood culture reveals no growth to date. She remains on antibiotics and Tamiflu. Echocardiogram revealed preserved left ventricular systolic function with ejection fraction 55- 60%. There is noted mild to moderate aortic stenosis. On 12/12/2017 patient seen in follow-up in the surgical floor. She states she could not sleep at all last night due to increased dyspnea, chest congestion, and persistent coughing. Lung sounds are positive for diffuse wheezing throughout the lung campbell, with scattered rhonchi. Patient has a very loose productive congested cough, with production of small amount of yellowish sputum. Continues on combination of Tamiflu and Levaquin, DuoNeb nebulized treatments, and oral prednisone. She has been ambulating to the bathroom, however becomes very dyspneic with any amount of exertion. She is afebrile, she is on 2 L per nasal cannula with O2 sat 97%. Other vitals are stable. Blood, urine and sputum cultures remain negative. Today's lab work shows a PVC of 7.6, hemoglobin of 10.5, renal profile is improving, BUN is down to 42 from 44, creatinine is down to 1.33 from 1.6 from yesterday's labs. On 12/13/2017 patient seen in follow-up. Still remains quite dyspneic and wheezy. Lung sounds are slightly improved from yesterday's exam. She is bringing up some clear yellowish sputum. Overall remains about the same, with significant activity limitation and wheezing. She will continue on current plan of treatment, with IV steroids, Tamiflu, Levaquin, nebulized treatments. Not ready to go home today. No new lab work were chest x-rays today. She did have a low-grade fever this morning, with 100F. Hemodynamically stable, remains on 3 L per nasal cannula with O2 sat at 99%. The patient is seen again today in follow-up 12/14/2017 on the regular medical floor. She is awake and alert in no acute distress. She is quite comfortable at rest but dyspneic on minimal exertion. She continues to have some faint end expiratory wheeze bilaterally. Blood, urine and sputum cultures reveal no growth. White count 13.7. Creatinine 1.22. She is afebrile. Maintaining good O2 saturations in the mid 90s on 3 L/m per nasal cannula. Objective - Vital Signs Vital signs: Vital Signs Temp 97.3 F L 12/14/17 06:57 Pulse 84 12/14/17 12:13 Resp 16 12/14/17 06:57 BP 177/96 12/14/17 06:57 Pulse Ox 95 12/14/17 06:57 Intake & Output 02/23/18 02/24/18 02/24/18 18:59 06:59 18:59 Intake Total 480 Balance 480 Intake: Oral 480 Other: # Voids 1 2 # Bowel Movements 1 0 - Exam GENERAL EXAM: Alert, comfortable in no apparent distress. HEAD: Normocephalic. EYES: Normal reaction of pupils, equal size. NOSE: Clear with pink turbinates. THROAT: No erythema or exudates. NECK: No masses, no JVD. CHEST: No chest wall deformity. LUNGS: Equal air entry with end expiratory wheeze. Diminished. CVS: S1 and S2 normal with no audible murmur, regular rhythm. ABDOMEN: No hepatosplenomegaly, normal bowel sounds, no guarding or rigidity. SPINE: No scoliosis or deformity SKIN: No rashes, ecchymosis from chronic steroids. CENTRAL NERVOUS SYSTEM: No focal deficits, tone is normal in all 4 extremities. EXTREMITIES: There is no peripheral edema. No clubbing, no cyanosis. Peripheral pulses are intact. - Labs CBC & Chem 7: 12/14/17 07:15 12/14/17 07:15 Labs: Abnormal Lab Results - Last 24 Hours (Table) 12/14/17 12/14/17 Range/Units 07:15 07:15 WBC 13.7 H (3.8-10.6) k/uL RDW 15.6 H (11.5-15.5) % Neutrophils # 12.9 H (1.3-7.7) k/uL Lymphocytes # 0.3 L (1.0-4.8) k/uL Potassium 5.3 H (3.5-5.1) mmol/L Chloride 109 H (98-107) mmol/L BUN 52 H (7-17) mg/dL Creatinine 1.22 H (0.52-1.04) mg/dL Glucose 115 H (74-99) mg/dL Microbiology - Last 24 Hours (Table) 12/09/17 11:00 Blood Culture - Preliminary Blood No Growth after 120 hours Assessment and Plan Assessment: Impression: #1 Acute exacerbation of oxygen dependent chronic obstructive pulmonary disease secondary to acute influenza B infection. #2 Acute on chronic hypoxic respiratory failure secondary to above #3 Mild troponin leak. #4 History of coronary artery disease with previous stent placement. #5 Acute on chronic renal failure. #6 Hypothyroidism. #7 Hypertension. #8 Hyperlipidemia. #9 Poor overall functional performance based on the above-mentioned multiple comorbidities. Plan: The patient was seen and evaluated by Dr. Colon. We'll continue with her current pulmonary medications including DuoNeb inhalations 4 times a day and as needed, Pulmicort inhalations twice a day. Continue IV Solu-Medrol. Continue Levaquin. Completed Tamiflu. We will continue to follow and make further recommendations based on her clinical status. I, the cosigning physician, performed a history & physical examination of the patient. Lungs sounds have end expiratory wheeze bilaterally. Diminished. Maintaining good O2 saturations in the 90s on 3 L/m per nasal cannula. I discussed the assessment and plan of care with my nurse practitioner, Kelly Merchant. I attest to the above note as dictated by her.
[2017-12-14] MEDS ORDERED: LOPERAMIDE 2 MG CAP PO PRN (15:32)
[2017-12-14] MEDS: INDACATEROL INHALATION SCH (17:51)
[2017-12-14] MEDS: GLYCOPYRROLATE INHALATION SCH (17:51)
[2017-12-14] MEDS: cefTRIAXone IN SWFI 1,000 MG/10 ML SYRINGE IVP SCH (17:55)
[2017-12-14] MEDS: CALCIUM CARBONATE 500 MG CHEWABLE PO SCH (17:56)
[2017-12-14] MEDS: LATANOPROST 0.005% OPHTH DROPS 2.5 ML BTL BOTH EYES SCH (21:15)
[2017-12-15] MEDS: methylPREDNISolone SOD SUCCI 125 MG/2 ML VIAL IV SCH ×4 (00:32→18:19)
[2017-12-15] MEDS: LEVOTHYROXINE 50 MCG TAB PO SCH (06:47)
[2017-12-15] MEDS: BUDESONIDE 1 MG/2 ML NEBU INHALATION SCH ×2 (07:08→19:04)
[2017-12-15] MEDS: IPRATROPIUM-ALBUTEROL 3 ML NEB INHALATION SCH ×4 (07:14→19:04)
[2017-12-15] MEDS ORDERED: LEVOFLOXACIN 250 MG TAB PO SCH (09:00)
[2017-12-15] MEDS: ALLOPURINOL 100 MG TAB PO SCH (10:15)
[2017-12-15] MEDS: ATORVASTATIN 40 MG TAB PO SCH (10:15)
[2017-12-15] MEDS: ASPIRIN 81 MG PO SCH (10:15)
[2017-12-15] MEDS: ATENOLOL 50 MG TAB PO SCH ×2 (10:15→22:03)
[2017-12-15] MEDS: ISOSORBIDE MONONITRATE ER 30 MG TAB.ER.24H PO SCH (10:15)
[2017-12-15] MEDS: cefTRIAXone IN SWFI 1,000 MG/10 ML SYRINGE IVP SCH ×2 (10:15→18:20)
[2017-12-15] MEDS ORDERED: VANCOMYCIN IV PER PHARMACY 1 EACH MISC MISCELLANE PRN (10:17)
--- NOTE | 2017-12-15 10:20 | P.PN ---
Subjective Progress Note Date: 12/15/17 Principal diagnosis: Acute exacerbation of oxygen dependent chronic obstructive pulmonary disease, complicated by influenza B This is a very pleasant 82-year-old female patient who follows with Dr. Charles as her primary care physician. She has a history of hypertension, hyperlipidemia, myocardial infarction, hypothyroidism, chronic renal failure, iron deficiency anemia. She also follows with Dr. 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 Her FEV1 value is 35% of predicted. She was last seen a few weeks ago and was doing well at that time. She presented here to the emergency room yesterday with complaints of increasing shortness of breath, yellow productive sputum, chills. She also had some right-sided chest wall pain. More so on inhalation. 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 There is a persistent 1.8 cm left upper lobe nodule which correlates with a cavitary lesion on a previous computed tomography scan. No acute pulmonary process. Sputum culture is pending. The patient was found to be influenza B+. No leukocytosis. Borderline troponin leak. Echocardiogram pending Creatinine 1.71. She is seen today in consultation on the selective care unit. She is currently awake and alert in no acute distress. She is breathing slightly better today as compared to yesterday. The yellow productive sputum has cleared. No hemoptysis. She is currently afebrile. She did have a T-max of 101.0. She is maintaining good O2 saturations in the upper 90s on 2 L/m per nasal cannula. She's been hemodynamically stable. The patient is seen again today 12/11/2017 in follow-up on the selective care unit. She is awake and alert in no acute distress. She is resting comfortably in bed. She is maintaining good O2 saturations up to 100% on 2 L/m per nasal cannula. She's been afebrile. Hemodynamically stable. Blood culture reveals no growth to date. She remains on antibiotics and Tamiflu. Echocardiogram revealed preserved left ventricular systolic function with ejection fraction 55- 60%. There is noted mild to moderate aortic stenosis. On 12/12/2017 patient seen in follow-up in the surgical floor. She states she could not sleep at all last night due to increased dyspnea, chest congestion, and persistent coughing. Lung sounds are positive for diffuse wheezing throughout the lung campbell, with scattered rhonchi. Patient has a very loose productive congested cough, with production of small amount of yellowish sputum. Continues on combination of Tamiflu and Levaquin, DuoNeb nebulized treatments, and oral prednisone. She has been ambulating to the bathroom, however becomes very dyspneic with any amount of exertion. She is afebrile, she is on 2 L per nasal cannula with O2 sat 97%. Other vitals are stable. Blood, urine and sputum cultures remain negative. Today's lab work shows a PVC of 7.6, hemoglobin of 10.5, renal profile is improving, BUN is down to 42 from 44, creatinine is down to 1.33 from 1.6 from yesterday's labs. On 12/13/2017 patient seen in follow-up. Still remains quite dyspneic and wheezy. Lung sounds are slightly improved from yesterday's exam. She is bringing up some clear yellowish sputum. Overall remains about the same, with significant activity limitation and wheezing. She will continue on current plan of treatment, with IV steroids, Tamiflu, Levaquin, nebulized treatments. Not ready to go home today. No new lab work were chest x-rays today. She did have a low-grade fever this morning, with 100F. Hemodynamically stable, remains on 3 L per nasal cannula with O2 sat at 99%. The patient is seen again today in follow-up 12/14/2017 on the regular medical floor. She is awake and alert in no acute distress. She is quite comfortable at rest but dyspneic on minimal exertion. She continues to have some faint end expiratory wheeze bilaterally. Blood, urine and sputum cultures reveal no growth. White count 13.7. Creatinine 1.22. She is afebrile. Maintaining good O2 saturations in the mid 90s on 3 L/m per nasal cannula. On 12/15/2017 patient seen again. She has made very little progress in terms of her dyspnea and wheezing. She has completed her Tamiflu, yesterday her Levaquin was switched to Rocephin. Her lung sounds remain positive for diffuse wheezing throughout, patient has persistent cough, she is bringing up white sputum at times. Remains very dyspneic with any exertion. She continues on Solu-Medrol at 60 mg every 6 hours, Pulmicort, DuoNeb. On 3 L per nasal cannula her O2 sat is 98%. She is afebrile. Blood, sputum and urine cultures remain negative. Lab work today shows leukocytosis with WBC up to 13.7, hemoglobin is 11.4, potassium is 5.3, chloride is 109, BUN is 59, and creatinine is 1.22. Improvement noted in her renal profile. Objective - Vital Signs Vital signs: Vital Signs Temp 97.5 F L 12/15/17 07:00 Pulse 82 12/15/17 07:26 Resp 22 12/15/17 07:00 BP 155/96 12/15/17 07:00 Pulse Ox 98 12/15/17 07:00 Intake & Output 12/14/17 12/15/17 12/15/17 18:59 06:59 18:59 Other: # Voids 2 1 # Bowel Movements 0 - Exam GENERAL EXAM: Alert, comfortable in no apparent distress. HEAD: Normocephalic. EYES: Normal reaction of pupils, equal size. NOSE: Clear with pink turbinates. THROAT: No erythema or exudates. NECK: No masses, no JVD. CHEST: No chest wall deformity. LUNGS: Equal air entry with diffuse wheezing throughout the lung campbell and scattered rhonchi. Patient is significantly dyspneic with any amount of exertion CVS: S1 and S2 normal with no audible murmur, regular rhythm. ABDOMEN: No hepatosplenomegaly, normal bowel sounds, no guarding or rigidity. SPINE: No scoliosis or deformity SKIN: No rashes, ecchymosis from chronic steroids. CENTRAL NERVOUS SYSTEM: No focal deficits, tone is normal in all 4 extremities. EXTREMITIES: There is no peripheral edema. No clubbing, no cyanosis. Peripheral pulses are intact. - Labs CBC & Chem 7: 12/14/17 07:15 12/14/17 07:15 Labs: Microbiology - Last 24 Hours (Table) 12/13/17 15:23 Blood Culture - Preliminary Blood No Growth after 24 hours 12/13/17 15:43 Blood Culture - Preliminary Blood No Growth after 24 hours 12/09/17 11:00 Blood Culture - Preliminary Blood No Growth after 120 hours Assessment and Plan Plan: Assessment: #1 Acute exacerbation of oxygen dependent chronic obstructive pulmonary disease secondary to acute influenza B infection. #2 Acute on chronic hypoxic respiratory failure secondary to above #3 Mild troponin leak. #4 History of coronary artery disease with previous stent placement. #5 Acute on chronic renal failure. #6 Hypothyroidism. #7 Hypertension. #8 Hyperlipidemia. #9 Poor overall functional performance based on the above-mentioned multiple comorbidities. Plan: Patient remains dyspneic and wheezy, still has a persistent cough with production of sputum. Today her CODE STATUS was again discussed with her, patient is adamant about DO NOT RESUSCITATE status, wants to continue with supportive care. We will stop the Rocephin, we will initiate vancomycin and meropenem, we will get a follow-up chest x-ray in the morning. Continue nebulized treatments, Pulmicort, DuoNeb, IV Solu-Medrol at 60 mg every 6 hours. I performed a history & physical examination of the patient and discussed their management with my nurse practitioner, Eva Watson. I reviewed the nurse practitioner's note and agree with the documented findings and plan of care. Lung sounds are positive for diffuse wheezes throughout the lung campbell. The findings and the impression was discussed with the patient. I attest to the documentation by the nurse practitioner. Time with Patient: Less than 30
[2017-12-15] MEDS ORDERED: MEROPENEM 1 GM in SODIUM CHLORIDE 0.9% 100 ML IVPB SCH (10:30)
--- NOTE | 2017-12-15 10:45 | PN ---
PROGRESS NOTE DATE OF SERVICE: December 14, 2017. PRESENTING COMPLAINT: Short of breath. INTERVAL HISTORY: This patient was seen by me yesterday on December 14, 2017. The patient did get short of breath with exertion, some cough, minimal sputum exertion, does feel a bit congested in the chest. Sputum is anywhere from clear to yellow. Tolerating a diet. REVIEW OF SYSTEMS: Done for constitutional, cardiovascular, GI, pulmonary, relevant findings as above. CURRENT MEDICATIONS: Reviewed that include DuoNeb, IV Solu-Medrol, IV ceftriaxone. PHYSICAL EXAMINATION: Temperature 97.3, pulse 18, respirations 18, blood pressure 130/79, pulse ox 100% on 3 L. General appearance sitting up awake. Eyes pupils. Conjunctivae normal. HEENT: External appearance of nose and ears normal. Oral cavity normal. Neck JVD not raised. Mass not palpable. Respiratory effort increased. Lungs decreased breath sounds. Prolonged expiration. Some wheezing. Cardiovascular 1st and 2nd sounds no edema. ABDOMEN: Soft, nontender. Liver and spleen not palpable. Psychiatry: Alert and oriented x3. Mood and affect normal. INVESTIGATIONS: White count 13.7, hemoglobin 11.4, potassium 5.3, BUN 32, creatinine 1.22. ASSESSMENT: 1. Acute chronic obstructive pulmonary disease exacerbation secondary to acute influenza B infection. 2. Acute on chronic hypoxic respiratory failure secondary to chronic obstructive pulmonary disease. 3. Coronary artery disease, prior history of stent. 4. Hypothyroidism. 5. Essential hypertension. 6. Hyperlipidemia. 7. Acute renal failure, present on admission, likely prerenal, now improving. 8. Chronic congestive heart failure from diastolic dysfunction. Ejection fraction 50- 55% underlying coronary artery disease. 9. 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 PLAN: Care was discussed with the patient. Continue the patient on antibiotics, nebulized bronchodilators, steroids. The patient being followed by Dr. Colon. The patient's cultures have all come back negative. MMODL / IJN: [id number] /
[2017-12-15] MEDS ORDERED: VANCOMYCIN 1,500 MG in SODIUM CHLORIDE 0.9% 250 ML IVPB ONE (11:00)
[2017-12-15 11:04] LABS: Calcium 9.6 mg/dL (8.4-10.2)
[2017-12-15] MEDS: guaiFENesin-DM 100-10MG/5ML 10 ML CUP PO PRN ×2 (12:29→22:02)
[2017-12-15] MEDS: GLYCOPYRROLATE INHALATION SCH (13:16)
[2017-12-15] MEDS: INDACATEROL INHALATION SCH (13:16)
[2017-12-15] MEDS: VIT A,C & E-LUTEIN-MINERALS 1 EACH TAB PO SCH ×2 (15:04→18:19)
[2017-12-15] MEDS: CALCIUM CARBONATE 500 MG CHEWABLE PO SCH (15:04)
--- NOTE | 2017-12-15 21:12 | PN ---
PROGRESS NOTE PRESENTING COMPLAINT: Short of breath, cough. INTERVAL HISTORY: The patient admitted with COPD exacerbation, influenza B, still very congested, very little sputum coming up. Did tolerate some diet and a bowel movement being in bed. REVIEW OF SYSTEMS: Done for constitutional, cardiovascular, GI, pulmonary; relevant findings as above. CURRENT MEDICATIONS: Reviewed that include DuoNeb, IV meropenem, IV Solu-Medrol and vancomycin. PHYSICAL EXAMINATION: Temperature 98, pulse 80, respirations 20, blood pressure 170/69, pulse ox 95% 3 L. GENERAL APPEARANCE: Sitting up in bed, tired appearing. EYES: Pupils equal, conjunctivae normal. HEENT: External appearance of the nose and ears normal. Oral cavity normal. NECK: JVD not raised. Mass not palpable. RESPIRATORY: Effort increased. LUNGS: Decreased breath sounds. Prolonged expiration, scattered crackles. CARDIOVASCULAR: First and second sounds normal. No edema. ABDOMEN: Soft, nontender. Liver and spleen not palpable. No mass palpable. PSYCHIATRY: Alert and oriented x3. Mood and affect slightly anxious-appearing. INVESTIGATIONS: Potassium 5, BUN 55, creatinine 1.36. Cultures all negative. ASSESSMENT: 1. Acute chronic obstructive pulmonary disease exacerbation secondary to acute influenza B, slow to respond. 2. Acute pneumonitis, probably from influenza B, and possible gram-negative organism. 3. [id number] hypoxic respiratory failure secondary to chronic obstructive pulmonary disease. 4. Coronary artery disease. prior history of stent. 5. Hypothyroidism. 6. Essential hypertension. 7. Hyperlipidemia. 8. Acute renal failure, present on admission, likely prerenal, improving. 9. Chronic congestive heart failure from diastolic dysfunction. Ejection fraction 50% to 55% from underlying coronary artery disease. 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 PLAN: Continue current medication and treatment plan. We will go ahead and add Mucinex. Care was discussed with the patient. The patient is slow to respond. MMODL / IJN: [id number] /
[2017-12-15] MEDS: LATANOPROST 0.005% OPHTH DROPS 2.5 ML BTL BOTH EYES SCH (22:04)
[2017-12-15] MEDS: guaiFENesin 600 MG TABLET.ER PO SCH (22:07)
[2017-12-16] MEDS: MEROPENEM 1 GM in SODIUM CHLORIDE 0.9% 100 ML IVPB SCH ×3 (00:10→23:04)
[2017-12-16] MEDS: methylPREDNISolone SOD SUCCI 40 MG/ML 1 ML VIAL IV SCH ×3 (01:26→18:24)
[2017-12-16] MEDS: IPRATROPIUM-ALBUTEROL 3 ML NEB INHALATION PRN (01:29)
[2017-12-16] MEDS: LEVOTHYROXINE 50 MCG TAB PO SCH (06:32)
[2017-12-16] MEDS: VANCOMYCIN 1,250 MG in SODIUM CHLORIDE 0.9% 250 ML IVPB SCH (06:59)
[2017-12-16] MEDS: BUDESONIDE 1 MG/2 ML NEBU INHALATION SCH ×2 (07:03→19:39)
[2017-12-16] MEDS: IPRATROPIUM-ALBUTEROL 3 ML NEB INHALATION SCH ×4 (07:03→19:39)
[2017-12-16] MEDS: INDACATEROL INHALATION SCH (09:15)
[2017-12-16] MEDS: GLYCOPYRROLATE INHALATION SCH (09:15)
[2017-12-16] MEDS ORDERED: PROMETHAZINE 6.25MG/5ML 147.5 MG/118 ML BOTTLE PO PRN (09:18)
[2017-12-16] MEDS: ASPIRIN 81 MG PO SCH (09:20)
[2017-12-16] MEDS: ATORVASTATIN 40 MG TAB PO SCH (09:20)
[2017-12-16] MEDS: ATENOLOL 50 MG TAB PO SCH ×2 (09:20→20:50)
[2017-12-16] MEDS: ISOSORBIDE MONONITRATE ER 30 MG TAB.ER.24H PO SCH (09:20)
[2017-12-16] MEDS: CALCIUM CARBONATE 500 MG CHEWABLE PO SCH (09:20)
[2017-12-16] MEDS: guaiFENesin 600 MG TABLET.ER PO SCH ×2 (09:21→20:50)
[2017-12-16] MEDS: ALLOPURINOL 100 MG TAB PO SCH (09:21)
[2017-12-16] MEDS: guaiFENesin-DM 100-10MG/5ML 10 ML CUP PO PRN (12:11)
[2017-12-16] MEDS: VIT A,C & E-LUTEIN-MINERALS 1 EACH TAB PO SCH ×2 (12:12→18:24)
--- NOTE | 2017-12-16 13:29 | XR ---
EXAMINATION TYPE: XR chest 2V DATE OF EXAM: 12/16/2017 COMPARISON: 12/13/2017 INDICATION: Short of breath, pneumonia TECHNIQUE: Frontal and lateral views of the chest are obtained. FINDINGS: The heart size is normal. The pulmonary vasculature is normal. There are increased lung markings in the right upper lung field. These appear improved from compariso n. Left upper lobe findings appear stable, where the patient's reported cavitary lesion may be locate d. IMPRESSION: 1. Stable to improving findings.
--- NOTE | 2017-12-16 13:36 | P.PN ---
Subjective Progress Note Date: 12/16/17 Principal diagnosis: Acute exacerbation of oxygen dependent chronic obstructive pulmonary disease, complicated by influenza B This is a very pleasant 82-year-old female patient who follows with Dr. Charles as her primary care physician. She has a history of hypertension, hyperlipidemia, myocardial infarction, hypothyroidism, chronic renal failure, iron deficiency anemia. She also follows with Dr. 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 Her FEV1 value is 35% of predicted. She was last seen a few weeks ago and was doing well at that time. She presented here to the emergency room yesterday with complaints of increasing shortness of breath, yellow productive sputum, chills. She also had some right-sided chest wall pain. More so on inhalation. 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 There is a persistent 1.8 cm left upper lobe nodule which correlates with a cavitary lesion on a previous computed tomography scan. No acute pulmonary process. Sputum culture is pending. The patient was found to be influenza B+. No leukocytosis. Borderline troponin leak. Echocardiogram pending Creatinine 1.71. She is seen today in consultation on the selective care unit. She is currently awake and alert in no acute distress. She is breathing slightly better today as compared to yesterday. The yellow productive sputum has cleared. No hemoptysis. She is currently afebrile. She did have a T-max of 101.0. She is maintaining good O2 saturations in the upper 90s on 2 L/m per nasal cannula. She's been hemodynamically stable. The patient is seen again today 12/11/2017 in follow-up on the selective care unit. She is awake and alert in no acute distress. She is resting comfortably in bed. She is maintaining good O2 saturations up to 100% on 2 L/m per nasal cannula. She's been afebrile. Hemodynamically stable. Blood culture reveals no growth to date. She remains on antibiotics and Tamiflu. Echocardiogram revealed preserved left ventricular systolic function with ejection fraction 55- 60%. There is noted mild to moderate aortic stenosis. On 12/12/2017 patient seen in follow-up in the surgical floor. She states she could not sleep at all last night due to increased dyspnea, chest congestion, and persistent coughing. Lung sounds are positive for diffuse wheezing throughout the lung campbell, with scattered rhonchi. Patient has a very loose productive congested cough, with production of small amount of yellowish sputum. Continues on combination of Tamiflu and Levaquin, DuoNeb nebulized treatments, and oral prednisone. She has been ambulating to the bathroom, however becomes very dyspneic with any amount of exertion. She is afebrile, she is on 2 L per nasal cannula with O2 sat 97%. Other vitals are stable. Blood, urine and sputum cultures remain negative. Today's lab work shows a PVC of 7.6, hemoglobin of 10.5, renal profile is improving, BUN is down to 42 from 44, creatinine is down to 1.33 from 1.6 from yesterday's labs. On 12/13/2017 patient seen in follow-up. Still remains quite dyspneic and wheezy. Lung sounds are slightly improved from yesterday's exam. She is bringing up some clear yellowish sputum. Overall remains about the same, with significant activity limitation and wheezing. She will continue on current plan of treatment, with IV steroids, Tamiflu, Levaquin, nebulized treatments. Not ready to go home today. No new lab work were chest x-rays today. She did have a low-grade fever this morning, with 100F. Hemodynamically stable, remains on 3 L per nasal cannula with O2 sat at 99%. The patient is seen again today in follow-up 12/14/2017 on the regular medical floor. She is awake and alert in no acute distress. She is quite comfortable at rest but dyspneic on minimal exertion. She continues to have some faint end expiratory wheeze bilaterally. Blood, urine and sputum cultures reveal no growth. White count 13.7. Creatinine 1.22. She is afebrile. Maintaining good O2 saturations in the mid 90s on 3 L/m per nasal cannula. On 12/15/2017 patient seen again. She has made very little progress in terms of her dyspnea and wheezing. She has completed her Tamiflu, yesterday her Levaquin was switched to Rocephin. Her lung sounds remain positive for diffuse wheezing throughout, patient has persistent cough, she is bringing up white sputum at times. Remains very dyspneic with any exertion. She continues on Solu-Medrol at 60 mg every 6 hours, Pulmicort, DuoNeb. On 3 L per nasal cannula her O2 sat is 98%. She is afebrile. Blood, sputum and urine cultures remain negative. Lab work today shows leukocytosis with WBC up to 13.7, hemoglobin is 11.4, potassium is 5.3, chloride is 109, BUN is 59, and creatinine is 1.22. Improvement noted in her renal profile. On 12/16/2017 patient is seen in follow-up. She reports slight improvement in her condition, little less short of breath, but still remains severely limited in terms of activity tolerance. Remains a 3 L per nasal cannula with O2 sat at 98%. She is afebrile. Vital signs are stable. Lung sounds remain diffusely wheezy, no rhonchi noted. Patient has occasional productive cough with production of white sputum. Blood urine and sputum cultures remain negative so far. On today's lab work renal profile is slightly worse, BUN is up to 55 from 52, and creatinine is up to 1.36 up from 1.22, electrolyte profile was normal. Today's chest x-ray has been reviewed and shows some improvement in the appearance of the interstitial markings. Patient is on combination of vancomycin and meropenem, nebulized treatments, IV steroids. Overall there is slight improvement in her condition noted. Objective - Vital Signs Vital signs: Vital Signs Temp 97.0 F L 12/16/17 07:00 Pulse 81 12/16/17 10:49 Resp 18 12/16/17 07:00 BP 165/86 12/16/17 07:00 Pulse Ox 98 12/16/17 07:00 Intake & Output 12/15/17 12/16/17 12/16/17 18:59 06:59 18:59 Intake Total 480 Balance 480 Intake: Oral 480 Other: Voiding Method Toilet Toilet # Voids 3 2 - Exam GENERAL EXAM: Alert, comfortable in no apparent distress. HEAD: Normocephalic. EYES: Normal reaction of pupils, equal size. NOSE: Clear with pink turbinates. THROAT: No erythema or exudates. NECK: No masses, no JVD. CHEST: No chest wall deformity. LUNGS: Equal air entry with diffuse wheezing throughout the lung campbell, no rhonchi. Overall slightly improved from yesterday. CVS: S1 and S2 normal with no audible murmur, regular rhythm. ABDOMEN: No hepatosplenomegaly, normal bowel sounds, no guarding or rigidity. SPINE: No scoliosis or deformity SKIN: No rashes, ecchymosis from chronic steroids. CENTRAL NERVOUS SYSTEM: No focal deficits, tone is normal in all 4 extremities. EXTREMITIES: There is no peripheral edema. No clubbing, no cyanosis. Peripheral pulses are intact. - Labs CBC & Chem 7: 12/14/17 07:15 12/15/17 10:13 Labs: Microbiology - Last 24 Hours (Table) 12/15/17 07:00 Urine Culture - Final Urine,Voided 12/13/17 15:23 Blood Culture - Preliminary Blood No Growth after 48 hours 12/13/17 15:43 Blood Culture - Preliminary Blood No Growth after 48 hours 12/09/17 11:00 Blood Culture - Final Blood No Growth after 144 hours Assessment and Plan Plan: Assessment: #1 Acute exacerbation of oxygen dependent chronic obstructive pulmonary disease secondary to acute influenza B infection. #2 Acute on chronic hypoxic respiratory failure secondary to above #3 Mild troponin leak. #4 History of coronary artery disease with previous stent placement. #5 Acute on chronic renal failure. #6 Hypothyroidism. #7 Hypertension. #8 Hyperlipidemia. #9 Poor overall functional performance based on the above-mentioned multiple comorbidities. Plan: Today's chest x-ray was reviewed, some improvement noted in the appearance of interstitial markings. Clinically patient reports slight improvement, still remains wheezy, less short of breath overall. Continue current plan of treatment, continue vancomycin and meropenem, continue DuoNeb nebulized treatments, IV steroids. I performed a history & physical examination of the patient and discussed their management with my nurse practitioner, Eva Watson. I reviewed the nurse practitioner's note and agree with the documented findings and plan of care. Lung sounds are positive for diffuse wheezes throughout the lung campbell. The findings and the impression was discussed with the patient. I attest to the documentation by the nurse practitioner. Time with Patient: Less than 30
[2017-12-16 14:58] VITALS: BMI 26.6
--- NOTE | 2017-12-16 20:13 | PN ---
PROGRESS NOTE DATE OF SERVICE: 12/16/2017 PRESENTING COMPLAINT: Short of breath and cough. INTERVAL HISTORY: This patient presented with COPD exacerbation and influenza B. Still quite a bit congested, still bringing up sputum. Did tolerate some diet. Has been out of bed. Feeling weak and tired. REVIEW OF SYSTEMS: Done for constitutional, cardiovascular, GI, pulmonary; relevant findings as above. CURRENT MEDICATIONS: Reviewed. They include: 1. DuoNeb. 2. IV Solu-Medrol. 3. IV meropenem. 4. IV vancomycin. PHYSICAL EXAMINATION: Temperature 97.2, pulse 75, respiration 18, blood pressure 126/72, pulse ox 94% on 2 L. GENERAL APPEARANCE: Sitting up in bed, tired-appearing. EYES: Pupils equal. Conjunctivae normal. HEENT: External appearance of nose and ears normal. Oral cavity normal. NECK: JVD not raised. Mass not palpable. RESPIRATORY: Effort increased. LUNGS: Decreased breath sounds. Prolonged expiration. Some scattered crackles. CARDIOVASCULAR: First and second sounds normal. No edema. ABDOMEN: Soft, nontender. Liver and spleen not palpable. PSYCHIATRY: Alert, oriented x3. Mood and affect normal. INVESTIGATIONS: Potassium 5, BUN 55, creatinine 1.36. ASSESSMENT: 1. Acute chronic obstructive pulmonary disease exacerbation secondary to acute influenza B, slow to respond. 2. Acute pneumonitis, probably from influenza B; possible Gram-negative organism. 3. Acute on chronic hypoxic respiratory failure secondary to chronic obstructive pulmonary disease. 4. Coronary artery disease with prior history of stent. 5. Hypothyroidism. 6. Essential hypertension. 7. Hyperlipidemia. 8. Acute renal failure, present on admission, likely prerenal, improved. 9. Chronic kidney disease, stage III, from hypertensive nephrosclerosis. 10.Chronic congestive heart failure from diastolic dysfunction, ejection fraction 50% to 55%, from underlying chronic obstructive pulmonary disease. PLAN: Patient is slow to improve. Continue with nebulized bronchodilators, steroids, antibiotics that include meropenem and vancomycin. Will send off for repeat sputum Gram stain and culture. Care was discussed with the patient. MMODL / IJN: [id number] /
[2017-12-16] MEDS: LATANOPROST 0.005% OPHTH DROPS 2.5 ML BTL BOTH EYES SCH (20:50)
[2017-12-17] MEDS: IPRATROPIUM-ALBUTEROL 3 ML NEB INHALATION PRN ×2 (00:18→03:48)
[2017-12-17] MEDS: methylPREDNISolone SOD SUCCI 40 MG/ML 1 ML VIAL IV SCH ×2 (03:29→09:29)
[2017-12-17] MEDS: LEVOTHYROXINE 50 MCG TAB PO SCH (06:39)
[2017-12-17] MEDS: VANCOMYCIN 1,250 MG in SODIUM CHLORIDE 0.9% 250 ML IVPB SCH (06:39)
[2017-12-17] MEDS: IPRATROPIUM-ALBUTEROL 3 ML NEB INHALATION SCH ×4 (07:22→20:37)
[2017-12-17] MEDS: BUDESONIDE 1 MG/2 ML NEBU INHALATION SCH ×2 (07:22→20:37)
[2017-12-17 08:46] LABS: Anion Gap 9 mmol/L; Blood Urea Nitrogen 46 mg/dL (7-17); Calcium 9.6 mg/dL (8.4-10.2); Carbon Dioxide 25 mmol/L (22-30); Chloride 108 mmol/L (98-107); Glucose 128 mg/dL (74-99); Potassium 4.8 mmol/L (3.5-5.1); Sodium 142 mmol/L (137-145)
[2017-12-17] MEDS: ATENOLOL 50 MG TAB PO SCH ×2 (09:27→21:09)
[2017-12-17] MEDS: ATORVASTATIN 40 MG TAB PO SCH (09:27)
[2017-12-17] MEDS: ASPIRIN 81 MG PO SCH (09:27)
[2017-12-17] MEDS: guaiFENesin 600 MG TABLET.ER PO SCH ×2 (09:27→21:09)
[2017-12-17] MEDS: ALLOPURINOL 100 MG TAB PO SCH (09:27)
[2017-12-17] MEDS: ISOSORBIDE MONONITRATE ER 30 MG TAB.ER.24H PO SCH (09:28)
[2017-12-17] MEDS: CALCIUM CARBONATE 500 MG CHEWABLE PO SCH (09:29)
--- NOTE | 2017-12-17 09:56 | P.PN ---
Subjective Progress Note Date: 12/17/17 Principal diagnosis: Acute exacerbation of oxygen dependent chronic obstructive pulmonary disease, complicated by influenza B This is a very pleasant 82-year-old female patient who follows with Dr. Charles as her primary care physician. She has a history of hypertension, hyperlipidemia, myocardial infarction, hypothyroidism, chronic renal failure, iron deficiency anemia. She also follows with Dr. 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 Her FEV1 value is 35% of predicted. She was last seen a few weeks ago and was doing well at that time. She presented here to the emergency room yesterday with complaints of increasing shortness of breath, yellow productive sputum, chills. She also had some right-sided chest wall pain. More so on inhalation. 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 There is a persistent 1.8 cm left upper lobe nodule which correlates with a cavitary lesion on a previous computed tomography scan. No acute pulmonary process. Sputum culture is pending. The patient was found to be influenza B+. No leukocytosis. Borderline troponin leak. Echocardiogram pending Creatinine 1.71. She is seen today in consultation on the selective care unit. She is currently awake and alert in no acute distress. She is breathing slightly better today as compared to yesterday. The yellow productive sputum has cleared. No hemoptysis. She is currently afebrile. She did have a T-max of 101.0. She is maintaining good O2 saturations in the upper 90s on 2 L/m per nasal cannula. She's been hemodynamically stable. The patient is seen again today 12/11/2017 in follow-up on the selective care unit. She is awake and alert in no acute distress. She is resting comfortably in bed. She is maintaining good O2 saturations up to 100% on 2 L/m per nasal cannula. She's been afebrile. Hemodynamically stable. Blood culture reveals no growth to date. She remains on antibiotics and Tamiflu. Echocardiogram revealed preserved left ventricular systolic function with ejection fraction 55- 60%. There is noted mild to moderate aortic stenosis. On 12/12/2017 patient seen in follow-up in the surgical floor. She states she could not sleep at all last night due to increased dyspnea, chest congestion, and persistent coughing. Lung sounds are positive for diffuse wheezing throughout the lung campbell, with scattered rhonchi. Patient has a very loose productive congested cough, with production of small amount of yellowish sputum. Continues on combination of Tamiflu and Levaquin, DuoNeb nebulized treatments, and oral prednisone. She has been ambulating to the bathroom, however becomes very dyspneic with any amount of exertion. She is afebrile, she is on 2 L per nasal cannula with O2 sat 97%. Other vitals are stable. Blood, urine and sputum cultures remain negative. Today's lab work shows a PVC of 7.6, hemoglobin of 10.5, renal profile is improving, BUN is down to 42 from 44, creatinine is down to 1.33 from 1.6 from yesterday's labs. On 12/13/2017 patient seen in follow-up. Still remains quite dyspneic and wheezy. Lung sounds are slightly improved from yesterday's exam. She is bringing up some clear yellowish sputum. Overall remains about the same, with significant activity limitation and wheezing. She will continue on current plan of treatment, with IV steroids, Tamiflu, Levaquin, nebulized treatments. Not ready to go home today. No new lab work were chest x-rays today. She did have a low-grade fever this morning, with 100F. Hemodynamically stable, remains on 3 L per nasal cannula with O2 sat at 99%. The patient is seen again today in follow-up 12/14/2017 on the regular medical floor. She is awake and alert in no acute distress. She is quite comfortable at rest but dyspneic on minimal exertion. She continues to have some faint end expiratory wheeze bilaterally. Blood, urine and sputum cultures reveal no growth. White count 13.7. Creatinine 1.22. She is afebrile. Maintaining good O2 saturations in the mid 90s on 3 L/m per nasal cannula. On 12/15/2017 patient seen again. She has made very little progress in terms of her dyspnea and wheezing. She has completed her Tamiflu, yesterday her Levaquin was switched to Rocephin. Her lung sounds remain positive for diffuse wheezing throughout, patient has persistent cough, she is bringing up white sputum at times. Remains very dyspneic with any exertion. She continues on Solu-Medrol at 60 mg every 6 hours, Pulmicort, DuoNeb. On 3 L per nasal cannula her O2 sat is 98%. She is afebrile. Blood, sputum and urine cultures remain negative. Lab work today shows leukocytosis with WBC up to 13.7, hemoglobin is 11.4, potassium is 5.3, chloride is 109, BUN is 59, and creatinine is 1.22. Improvement noted in her renal profile. On 12/16/2017 patient is seen in follow-up. She reports slight improvement in her condition, little less short of breath, but still remains severely limited in terms of activity tolerance. Remains a 3 L per nasal cannula with O2 sat at 98%. She is afebrile. Vital signs are stable. Lung sounds remain diffusely wheezy, no rhonchi noted. Patient has occasional productive cough with production of white sputum. Blood urine and sputum cultures remain negative so far. On today's lab work renal profile is slightly worse, BUN is up to 55 from 52, and creatinine is up to 1.36 up from 1.22, electrolyte profile was normal. Today's chest x-ray has been reviewed and shows some improvement in the appearance of the interstitial markings. Patient is on combination of vancomycin and meropenem, nebulized treatments, IV steroids. Overall there is slight improvement in her condition noted. On 12/17/2017 patient seen in follow-up. Still remains dyspneic and wheezy, but seems to be improving. She is sitting up on the edge of the bed, any over a table, tolerating activity well. Per nursing report she is able to ambulate on portable oxygen, they will try to get her in the shower today. Her renal profile was noted to be improving, with BUN down to 46 from 55, and creatinine is down to 1.02 from 1.36. Patient is tolerating oral intake. Lung sounds are positive for diffuse wheezing, but this has improved from previous exams. We' ll continue with current plan of treatment, nebulized treatments, IV Solu-Medrol , vancomycin and meropenem. Microbiology remains negative. Objective - Vital Signs Vital signs: Vital Signs Temp 97.4 F L 12/17/17 06:23 Pulse 78 12/17/17 07:43 Resp 16 12/17/17 07:23 BP 167/83 12/17/17 06:23 Pulse Ox 98 12/17/17 06:23 Intake & Output 12/16/17 12/17/17 12/17/17 18:59 06:59 18:59 Intake Total 960 Balance 960 Weight 64 kg Intake: Oral 960 Other: Voiding Method Toilet # Voids 3 1 - Exam GENERAL EXAM: Alert, comfortable in no apparent distress. HEAD: Normocephalic. EYES: Normal reaction of pupils, equal size. NOSE: Clear with pink turbinates. THROAT: No erythema or exudates. NECK: No masses, no JVD. CHEST: No chest wall deformity. LUNGS: Equal air entry with diffuse wheezing throughout the lung campbell, no rhonchi. Some improvement noted from yesterday CVS: S1 and S2 normal with no audible murmur, regular rhythm. ABDOMEN: No hepatosplenomegaly, normal bowel sounds, no guarding or rigidity. SPINE: No scoliosis or deformity SKIN: No rashes, ecchymosis from chronic steroids. CENTRAL NERVOUS SYSTEM: No focal deficits, tone is normal in all 4 extremities. EXTREMITIES: There is no peripheral edema. No clubbing, no cyanosis. Peripheral pulses are intact. - Labs CBC & Chem 7: 12/14/17 07:15 12/17/17 07:58 Labs: Abnormal Lab Results - Last 24 Hours (Table) 12/17/17 Range/Units 07:58 Chloride 108 H (98-107) mmol/L BUN 46 H (7-17) mg/dL Glucose 128 H (74-99) mg/dL Microbiology - Last 24 Hours (Table) 12/16/17 20:52 Gram Stain - Preliminary Sputum Sputum Culture - Preliminary 12/13/17 15:23 Blood Culture - Preliminary Blood No Growth after 72 hours 12/13/17 15:43 Blood Culture - Preliminary Blood No Growth after 72 hours 12/15/17 07:00 Urine Culture - Final Urine,Voided Assessment and Plan Plan: Assessment: #1 Acute exacerbation of oxygen dependent chronic obstructive pulmonary disease secondary to acute influenza B infection. #2 Acute on chronic hypoxic respiratory failure secondary to above #3 Mild troponin leak. #4 History of coronary artery disease with previous stent placement. #5 Acute on chronic renal failure. #6 Hypothyroidism. #7 Hypertension. #8 Hyperlipidemia. #9 Poor overall functional performance based on the above-mentioned multiple comorbidities. Plan: Patient is improving, though remains dyspneic and wheezy, but overall better. Increase activity as tolerated, she will try to get up in the shower with assistance today. Microbiology remains negative. Continue vancomycin and meropenem, continue IV Solu-Medrol nebulized treatments. Will closely follow with you. I performed a history & physical examination of the patient and discussed their management with my nurse practitioner, Eva Watson. I reviewed the nurse practitioner's note and agree with the documented findings and plan of care. Lung sounds are positive for diffuse wheezes throughout the lung campbell, improved. The findings and the impression was discussed with the patient. I attest to the documentation by the nurse practitioner. Time with Patient: Less than 30
[2017-12-17] MEDS: GLYCOPYRROLATE INHALATION SCH (13:28)
[2017-12-17] MEDS: INDACATEROL INHALATION SCH (13:28)
[2017-12-17] MEDS: MEROPENEM 1 GM in SODIUM CHLORIDE 0.9% 100 ML IVPB SCH (13:29)
[2017-12-17] MEDS: VIT A,C & E-LUTEIN-MINERALS 1 EACH TAB PO SCH ×2 (13:29→16:42)
[2017-12-17] MEDS: CIPROFLOXACIN HCL 500 MG TAB PO SCH (21:09)
[2017-12-17] MEDS: LATANOPROST 0.005% OPHTH DROPS 2.5 ML BTL BOTH EYES SCH (21:12)
--- NOTE | 2017-12-17 21:35 | PN ---
PROGRESS NOTE DATE OF SERVICE: 12/17/17. PRESENTING COMPLAINT: Short of breath, cough. INTERVAL HISTORY: Patient presented with COPD exacerbation, influenza B, feels better, less congested, still bringing up some sputum. Appetite is getting better. Has been out of bed. Continues to feel weak and tired. REVIEW OF SYSTEMS: Done for constitutional, cardiovascular, GI, pulmonary, relevant findings as above. CURRENT MEDICATIONS: Reviewed that include DuoNeb, Mucinex, ciprofloxacin and oral prednisone. PHYSICAL EXAMINATION: Temperature 97.4, pulse 77, respiration 18, blood pressure 167/83, pulse ox 98% on 2 L. General appearance: Sitting up at the edge head of bed. Less tired appearing. Eyes: Pupils equal, conjunctivae normal. HEENT external appearance of nose and ears normal. Oral cavity normal. Neck JVD not raised. Mass not palpable. Respiratory effort normal. LUNGS: Diminished breath sounds. Prolonged expiration. Decreased crackles. Cardiovascular 1st and 2nd sounds normal. No edema. ABDOMEN: Soft, nontender. Liver and spleen not palpable. Psychiatry alert and oriented x3. Slightly tired appearing. INVESTIGATIONS: Potassium 4.8, BUN 46, creatinine 1.02. ASSESSMENT: 1. Acute chronic obstructive pulmonary disease exacerbation secondary to acute influenza B improving. 2. Acute pneumonitis probably from influenza B possible gram-negative organism clinically improving. 3. Acute on chronic hypoxic respiratory failure secondary to chronic obstructive pulmonary disease. 4. Coronary artery disease with prior history of stent. 5. Hypothyroidism. 6. Essential hypertension. 7. Hyperlipidemia. 8. Acute renal failure, present on admission, likely prerenal continues to improve. 9. Chronic kidney disease, from hypertensive nephrosclerosis. 10.Chronic congestive heart failure from diastolic dysfunction. Ejection fraction 50- 55% with underlying chronic obstructive pulmonary disease. PLAN: The patient continues to improve slowly. IV antibiotics have been discontinued, switched to Levaquin. Will get physical therapy involved. The patient lives by herself at home. 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 MMODL / IJN: [id number] /
[2017-12-18] MEDS: IPRATROPIUM-ALBUTEROL 3 ML NEB INHALATION PRN ×2 (03:37)
[2017-12-18] MEDS: ACETAMINOPHEN TAB 325 MG TAB PO PRN ×2 (05:43→21:59)
[2017-12-18] MEDS ORDERED: VANCOMYCIN TROUGH DUE 1 EACH MISC MISCELLANE ONE (06:00)
[2017-12-18] MEDS: LEVOTHYROXINE 50 MCG TAB PO SCH (06:48)
[2017-12-18 08:32] LABS: Calcium 9.5 mg/dL (8.4-10.2); Potassium 5.2 mmol/L (3.5-5.1)
[2017-12-18] MEDS: BUDESONIDE 1 MG/2 ML NEBU INHALATION SCH ×2 (09:20→19:23)
[2017-12-18] MEDS: predniSONE 50 MG TAB PO SCH (09:20)
[2017-12-18] MEDS: IPRATROPIUM-ALBUTEROL 3 ML NEB INHALATION SCH ×4 (09:20→19:22)
[2017-12-18] MEDS: VIT A,C & E-LUTEIN-MINERALS 1 EACH TAB PO SCH ×2 (09:20→16:38)
[2017-12-18] MEDS: ISOSORBIDE MONONITRATE ER 30 MG TAB.ER.24H PO SCH (09:20)
[2017-12-18] MEDS: CALCIUM CARBONATE 500 MG CHEWABLE PO SCH (09:20)
[2017-12-18] MEDS: ALLOPURINOL 100 MG TAB PO SCH (09:21)
[2017-12-18] MEDS: ATORVASTATIN 40 MG TAB PO SCH (09:21)
[2017-12-18] MEDS: ASPIRIN 81 MG PO SCH (09:21)
[2017-12-18] MEDS: ATENOLOL 50 MG TAB PO SCH ×2 (09:21→21:59)
[2017-12-18] MEDS: CIPROFLOXACIN HCL 500 MG TAB PO SCH (09:21)
[2017-12-18] MEDS: guaiFENesin 600 MG TABLET.ER PO SCH ×2 (09:21→21:59)
[2017-12-18] MEDS: INDACATEROL INHALATION SCH (09:54)
[2017-12-18] MEDS: GLYCOPYRROLATE INHALATION SCH (09:54)
--- NOTE | 2017-12-18 12:37 | P.PN ---
Subjective Progress Note Date: 12/18/17 Principal diagnosis: Acute exacerbation of oxygen dependent chronic obstructive pulmonary disease, complicated by influenza B This is a very pleasant 82-year-old female patient who follows with Dr. Charles as her primary care physician. She has a history of hypertension, hyperlipidemia, myocardial infarction, hypothyroidism, chronic renal failure, iron deficiency anemia. She also follows with Dr. 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 Her FEV1 value is 35% of predicted. She was last seen a few weeks ago and was doing well at that time. She presented here to the emergency room yesterday with complaints of increasing shortness of breath, yellow productive sputum, chills. She also had some right-sided chest wall pain. More so on inhalation. 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 There is a persistent 1.8 cm left upper lobe nodule which correlates with a cavitary lesion on a previous computed tomography scan. No acute pulmonary process. Sputum culture is pending. The patient was found to be influenza B+. No leukocytosis. Borderline troponin leak. Echocardiogram pending Creatinine 1.71. She is seen today in consultation on the selective care unit. She is currently awake and alert in no acute distress. She is breathing slightly better today as compared to yesterday. The yellow productive sputum has cleared. No hemoptysis. She is currently afebrile. She did have a T-max of 101.0. She is maintaining good O2 saturations in the upper 90s on 2 L/m per nasal cannula. She's been hemodynamically stable. The patient is seen again today 12/11/2017 in follow-up on the selective care unit. She is awake and alert in no acute distress. She is resting comfortably in bed. She is maintaining good O2 saturations up to 100% on 2 L/m per nasal cannula. She's been afebrile. Hemodynamically stable. Blood culture reveals no growth to date. She remains on antibiotics and Tamiflu. Echocardiogram revealed preserved left ventricular systolic function with ejection fraction 55- 60%. There is noted mild to moderate aortic stenosis. On 12/12/2017 patient seen in follow-up in the surgical floor. She states she could not sleep at all last night due to increased dyspnea, chest congestion, and persistent coughing. Lung sounds are positive for diffuse wheezing throughout the lung campbell, with scattered rhonchi. Patient has a very loose productive congested cough, with production of small amount of yellowish sputum. Continues on combination of Tamiflu and Levaquin, DuoNeb nebulized treatments, and oral prednisone. She has been ambulating to the bathroom, however becomes very dyspneic with any amount of exertion. She is afebrile, she is on 2 L per nasal cannula with O2 sat 97%. Other vitals are stable. Blood, urine and sputum cultures remain negative. Today's lab work shows a PVC of 7.6, hemoglobin of 10.5, renal profile is improving, BUN is down to 42 from 44, creatinine is down to 1.33 from 1.6 from yesterday's labs. On 12/13/2017 patient seen in follow-up. Still remains quite dyspneic and wheezy. Lung sounds are slightly improved from yesterday's exam. She is bringing up some clear yellowish sputum. Overall remains about the same, with significant activity limitation and wheezing. She will continue on current plan of treatment, with IV steroids, Tamiflu, Levaquin, nebulized treatments. Not ready to go home today. No new lab work were chest x-rays today. She did have a low-grade fever this morning, with 100F. Hemodynamically stable, remains on 3 L per nasal cannula with O2 sat at 99%. The patient is seen again today in follow-up 12/14/2017 on the regular medical floor. She is awake and alert in no acute distress. She is quite comfortable at rest but dyspneic on minimal exertion. She continues to have some faint end expiratory wheeze bilaterally. Blood, urine and sputum cultures reveal no growth. White count 13.7. Creatinine 1.22. She is afebrile. Maintaining good O2 saturations in the mid 90s on 3 L/m per nasal cannula. On 12/15/2017 patient seen again. She has made very little progress in terms of her dyspnea and wheezing. She has completed her Tamiflu, yesterday her Levaquin was switched to Rocephin. Her lung sounds remain positive for diffuse wheezing throughout, patient has persistent cough, she is bringing up white sputum at times. Remains very dyspneic with any exertion. She continues on Solu-Medrol at 60 mg every 6 hours, Pulmicort, DuoNeb. On 3 L per nasal cannula her O2 sat is 98%. She is afebrile. Blood, sputum and urine cultures remain negative. Lab work today shows leukocytosis with WBC up to 13.7, hemoglobin is 11.4, potassium is 5.3, chloride is 109, BUN is 59, and creatinine is 1.22. Improvement noted in her renal profile. On 12/16/2017 patient is seen in follow-up. She reports slight improvement in her condition, little less short of breath, but still remains severely limited in terms of activity tolerance. Remains a 3 L per nasal cannula with O2 sat at 98%. She is afebrile. Vital signs are stable. Lung sounds remain diffusely wheezy, no rhonchi noted. Patient has occasional productive cough with production of white sputum. Blood urine and sputum cultures remain negative so far. On today's lab work renal profile is slightly worse, BUN is up to 55 from 52, and creatinine is up to 1.36 up from 1.22, electrolyte profile was normal. Today's chest x-ray has been reviewed and shows some improvement in the appearance of the interstitial markings. Patient is on combination of vancomycin and meropenem, nebulized treatments, IV steroids. Overall there is slight improvement in her condition noted. On 12/17/2017 patient seen in follow-up. Still remains dyspneic and wheezy, but seems to be improving. She is sitting up on the edge of the bed, any over a table, tolerating activity well. Per nursing report she is able to ambulate on portable oxygen, they will try to get her in the shower today. Her renal profile was noted to be improving, with BUN down to 46 from 55, and creatinine is down to 1.02 from 1.36. Patient is tolerating oral intake. Lung sounds are positive for diffuse wheezing, but this has improved from previous exams. We' ll continue with current plan of treatment, nebulized treatments, IV Solu-Medrol , vancomycin and meropenem. Microbiology remains negative. On 12/10/2017 patient seen in follow-up. She is up taking a shower, moderately dyspneic after the exertion, but seems to be tolerating it well. Vital signs remain stable, she is on 2 L per nasal cannula with O2 sat at 97%. She is afebrile. Lung sounds are still positive for diffuse wheezes throughout the lung campbell, there may be a very slight improvement. Yesterday we had discontinued the vancomycin, and switched meropenem to oral ciprofloxacin 500 mg twice a day, we stopped IV steroids and started the patient on oral prednisone 50 mg daily. All of patient's blood cultures urine culture and sputum culture remain negative so far. Patient's appetite is getting better, she is less congested, still bringing up some sputum. Activity tolerance is improving, but patient easily fatigues. Overall patient is making slow improvement, and tinea with current plan of care. Objective - Vital Signs Vital signs: Vital Signs Temp 97.0 F L 12/18/17 06:32 Pulse 72 12/18/17 12:29 Resp 16 12/18/17 08:00 BP 132/62 12/18/17 06:32 Pulse Ox 97 12/18/17 06:32 Intake & Output 12/17/17 12/18/17 12/18/17 18:59 06:59 18:59 Intake Total 240 Balance 240 Weight 64 kg Intake: Oral 240 Other: Voiding Method Toilet # Voids 2 2 1 # Bowel Movements 1 - Exam GENERAL EXAM: Alert, comfortable in no apparent distress. HEAD: Normocephalic. EYES: Normal reaction of pupils, equal size. NOSE: Clear with pink turbinates. THROAT: No erythema or exudates. NECK: No masses, no JVD. CHEST: No chest wall deformity. LUNGS: Equal air entry with diffuse wheezing throughout the lung campbell, no rhonchi. Some improvement noted from yesterday CVS: S1 and S2 normal with no audible murmur, regular rhythm. ABDOMEN: No hepatosplenomegaly, normal bowel sounds, no guarding or rigidity. SPINE: No scoliosis or deformity SKIN: No rashes, ecchymosis from chronic steroids. CENTRAL NERVOUS SYSTEM: No focal deficits, tone is normal in all 4 extremities. EXTREMITIES: There is no peripheral edema. No clubbing, no cyanosis. Peripheral pulses are intact. - Labs CBC & Chem 7: 12/14/17 07:15 12/18/17 07:33 Labs: Abnormal Lab Results - Last 24 Hours (Table) 12/18/17 Range/Units 07:33 Potassium 5.2 H (3.5-5.1) mmol/L BUN 57 H (7-17) mg/dL Creatinine 1.23 H (0.52-1.04) mg/dL Microbiology - Last 24 Hours (Table) 12/13/17 15:23 Blood Culture - Preliminary Blood No Growth after 96 hours 12/13/17 15:43 Blood Culture - Preliminary Blood No Growth after 96 hours Assessment and Plan Plan: Assessment: #1 Acute exacerbation of oxygen dependent chronic obstructive pulmonary disease secondary to acute influenza B infection. #2 Acute on chronic hypoxic respiratory failure secondary to above #3 Mild troponin leak. #4 History of coronary artery disease with previous stent placement. #5 Acute on chronic renal failure. #6 Hypothyroidism. #7 Hypertension. #8 Hyperlipidemia. #9 Poor overall functional performance based on the above-mentioned multiple comorbidities. Plan: Microbiology remains negative so far, overall patient is clinically making very slow improvement every day. Able to tolerate more activity, appetite is improving. We stopped the vancomycin and meropenem yesterday, with switched patient to oral ciprofloxacin. IV steroids were discontinued, patient is switched to oral prednisone 50 mg daily. Continue with nebulized treatments, continue increasing activity as tolerated. Not ready for discharge yet. Patient will need subacute rehab after discharge. I performed a history & physical examination of the patient and discussed their management with my nurse practitioner, Eva Watson. I reviewed the nurse practitioner's note and agree with the documented findings and plan of care. Lung sounds are positive for diffuse wheezes throughout the lung campbell, improved. The findings and the impression was discussed with the patient. I attest to the documentation by the nurse practitioner. Time with Patient: Less than 30
--- NOTE | 2017-12-18 18:36 | PN ---
PROGRESS NOTE DATE OF SERVICE: 12/18/17 PRESENTING COMPLAINT: Short of breath and cough. INTERVAL HISTORY: Patient presented with COPD exacerbation and influenza B, continues to improve. Sputum production is there. Appetite is getting better. Looking to go to inpatient rehab. Had a bowel movement. REVIEW OF SYSTEMS: Done for constitutional, cardiovascular, GI, pulmonary, relevant findings as above. CURRENT MEDICATIONS: Reviewed that include DuoNeb, ciprofloxacin, oral prednisone. PHYSICAL EXAMINATION: Temperature 97, pulse 77, respirations 16, blood pressure 120/62, pulse ox 96% on 2 L. GENERAL APPEARANCE: Sitting up, more awake. Eyes: Pupils equal. Conjunctivae normal. HEENT external appearance of nose and ears normal. Oral cavity normal. Neck JVD not raised. Mass not palpable. Respiratory effort normal. Lungs decreased breath sounds. Prolonged expiration. Some crackles. Cardiovascular 1st and 2nd sounds normal. No edema. ABDOMEN: Soft, nontender. Liver and spleen not palpable. Psychiatry: Alert and oriented times three. Mood and affect normal. INVESTIGATIONS: Potassium 5.2, BUN 57, creatinine 1.23. ASSESSMENT: 1. Acute chronic obstructive pulmonary disease exacerbation secondary to acute influenza B. 2. Acute pneumonitis probably from influenza B probably gram-negative organism clinically improved. 3. Acute on chronic hypoxic respiratory failure secondary to chronic obstructive pulmonary disease. 4. Coronary artery disease, prior history of stent. 5. Hypothyroidism. 6. Essential hypertension. 7. Hyperlipidemia. 8. Acute renal failure, present on admission, likely prerenal, now stabilized. 9. Chronic kidney disease, from hypertensive nephrosclerosis stage III. 10.Chronic congestive heart failure from diastolic dysfunction. Ejection fraction 50- 55%, underlying chronic obstructive pulmonary disease. PLAN: Care was discussed with the patient. outside maintenance worker looking into rehab, probably can be discharged tomorrow. MMODL / IJN: [id number] /
[2017-12-18] MEDS: LATANOPROST 0.005% OPHTH DROPS 2.5 ML BTL BOTH EYES SCH (22:02)
[2017-12-19] MEDS ORDERED: CIPROFLOXACIN HCL 500 MG TAB PO SCH (04:00)
[2017-12-19] MEDS: LEVOTHYROXINE 50 MCG TAB PO SCH (06:17)
[2017-12-19 07:44] VITALS: BP 184/70; RESP 16; TEMP 96.7
[2017-12-19] MEDS: ATENOLOL 50 MG TAB PO SCH (08:09)
[2017-12-19] MEDS: ALLOPURINOL 100 MG TAB PO SCH (08:09)
[2017-12-19] MEDS: ISOSORBIDE MONONITRATE ER 30 MG TAB.ER.24H PO SCH (08:09)
[2017-12-19] MEDS: ASPIRIN 81 MG PO SCH (08:09)
[2017-12-19] MEDS: ATORVASTATIN 40 MG TAB PO SCH (08:09)
[2017-12-19] MEDS: guaiFENesin 600 MG TABLET.ER PO SCH (08:09)
[2017-12-19] MEDS: predniSONE 50 MG TAB PO SCH (08:09)
[2017-12-19 08:35] LABS: Calcium 9.1 mg/dL (8.4-10.2)
[2017-12-19 08:39] LABS: Potassium 4.7 mmol/L (3.5-5.1)
[2017-12-19] MEDS: IPRATROPIUM-ALBUTEROL 3 ML NEB INHALATION SCH ×2 (08:40→13:26)
[2017-12-19] MEDS: BUDESONIDE 1 MG/2 ML NEBU INHALATION SCH (08:40)
[2017-12-19] MEDS: ACETAMINOPHEN TAB 325 MG TAB PO PRN (09:01)
--- NOTE | 2017-12-19 11:21 | P.PN ---
Subjective Progress Note Date: 12/19/17 Principal diagnosis: Acute exacerbation of oxygen dependent chronic obstructive pulmonary disease, complicated by influenza B This is a very pleasant 82-year-old female patient who follows with Dr. Charles as her primary care physician. She has a history of hypertension, hyperlipidemia, myocardial infarction, hypothyroidism, chronic renal failure, iron deficiency anemia. She also follows with Dr. 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 Her FEV1 value is 35% of predicted. She was last seen a few weeks ago and was doing well at that time. She presented here to the emergency room yesterday with complaints of increasing shortness of breath, yellow productive sputum, chills. She also had some right-sided chest wall pain. More so on inhalation. 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 There is a persistent 1.8 cm left upper lobe nodule which correlates with a cavitary lesion on a previous computed tomography scan. No acute pulmonary process. Sputum culture is pending. The patient was found to be influenza B+. No leukocytosis. Borderline troponin leak. Echocardiogram pending Creatinine 1.71. She is seen today in consultation on the selective care unit. She is currently awake and alert in no acute distress. She is breathing slightly better today as compared to yesterday. The yellow productive sputum has cleared. No hemoptysis. She is currently afebrile. She did have a T-max of 101.0. She is maintaining good O2 saturations in the upper 90s on 2 L/m per nasal cannula. She's been hemodynamically stable. The patient is seen again today 12/11/2017 in follow-up on the selective care unit. She is awake and alert in no acute distress. She is resting comfortably in bed. She is maintaining good O2 saturations up to 100% on 2 L/m per nasal cannula. She's been afebrile. Hemodynamically stable. Blood culture reveals no growth to date. She remains on antibiotics and Tamiflu. Echocardiogram revealed preserved left ventricular systolic function with ejection fraction 55- 60%. There is noted mild to moderate aortic stenosis. On 12/12/2017 patient seen in follow-up in the surgical floor. She states she could not sleep at all last night due to increased dyspnea, chest congestion, and persistent coughing. Lung sounds are positive for diffuse wheezing throughout the lung campbell, with scattered rhonchi. Patient has a very loose productive congested cough, with production of small amount of yellowish sputum. Continues on combination of Tamiflu and Levaquin, DuoNeb nebulized treatments, and oral prednisone. She has been ambulating to the bathroom, however becomes very dyspneic with any amount of exertion. She is afebrile, she is on 2 L per nasal cannula with O2 sat 97%. Other vitals are stable. Blood, urine and sputum cultures remain negative. Today's lab work shows a PVC of 7.6, hemoglobin of 10.5, renal profile is improving, BUN is down to 42 from 44, creatinine is down to 1.33 from 1.6 from yesterday's labs. On 12/13/2017 patient seen in follow-up. Still remains quite dyspneic and wheezy. Lung sounds are slightly improved from yesterday's exam. She is bringing up some clear yellowish sputum. Overall remains about the same, with significant activity limitation and wheezing. She will continue on current plan of treatment, with IV steroids, Tamiflu, Levaquin, nebulized treatments. Not ready to go home today. No new lab work were chest x-rays today. She did have a low-grade fever this morning, with 100F. Hemodynamically stable, remains on 3 L per nasal cannula with O2 sat at 99%. The patient is seen again today in follow-up 12/14/2017 on the regular medical floor. She is awake and alert in no acute distress. She is quite comfortable at rest but dyspneic on minimal exertion. She continues to have some faint end expiratory wheeze bilaterally. Blood, urine and sputum cultures reveal no growth. White count 13.7. Creatinine 1.22. She is afebrile. Maintaining good O2 saturations in the mid 90s on 3 L/m per nasal cannula. On 12/15/2017 patient seen again. She has made very little progress in terms of her dyspnea and wheezing. She has completed her Tamiflu, yesterday her Levaquin was switched to Rocephin. Her lung sounds remain positive for diffuse wheezing throughout, patient has persistent cough, she is bringing up white sputum at times. Remains very dyspneic with any exertion. She continues on Solu-Medrol at 60 mg every 6 hours, Pulmicort, DuoNeb. On 3 L per nasal cannula her O2 sat is 98%. She is afebrile. Blood, sputum and urine cultures remain negative. Lab work today shows leukocytosis with WBC up to 13.7, hemoglobin is 11.4, potassium is 5.3, chloride is 109, BUN is 59, and creatinine is 1.22. Improvement noted in her renal profile. On 12/16/2017 patient is seen in follow-up. She reports slight improvement in her condition, little less short of breath, but still remains severely limited in terms of activity tolerance. Remains a 3 L per nasal cannula with O2 sat at 98%. She is afebrile. Vital signs are stable. Lung sounds remain diffusely wheezy, no rhonchi noted. Patient has occasional productive cough with production of white sputum. Blood urine and sputum cultures remain negative so far. On today's lab work renal profile is slightly worse, BUN is up to 55 from 52, and creatinine is up to 1.36 up from 1.22, electrolyte profile was normal. Today's chest x-ray has been reviewed and shows some improvement in the appearance of the interstitial markings. Patient is on combination of vancomycin and meropenem, nebulized treatments, IV steroids. Overall there is slight improvement in her condition noted. On 12/17/2017 patient seen in follow-up. Still remains dyspneic and wheezy, but seems to be improving. She is sitting up on the edge of the bed, any over a table, tolerating activity well. Per nursing report she is able to ambulate on portable oxygen, they will try to get her in the shower today. Her renal profile was noted to be improving, with BUN down to 46 from 55, and creatinine is down to 1.02 from 1.36. Patient is tolerating oral intake. Lung sounds are positive for diffuse wheezing, but this has improved from previous exams. We' ll continue with current plan of treatment, nebulized treatments, IV Solu-Medrol , vancomycin and meropenem. Microbiology remains negative. On 12/18/2017 patient seen in follow-up. She is up taking a shower, moderately dyspneic after the exertion, but seems to be tolerating it well. Vital signs remain stable, she is on 2 L per nasal cannula with O2 sat at 97%. She is afebrile. Lung sounds are still positive for diffuse wheezes throughout the lung campbell, there may be a very slight improvement. Yesterday we had discontinued the vancomycin, and switched meropenem to oral ciprofloxacin 500 mg twice a day, we stopped IV steroids and started the patient on oral prednisone 50 mg daily. All of patient's blood cultures urine culture and sputum culture remain negative so far. Patient's appetite is getting better, she is less congested, still bringing up some sputum. Activity tolerance is improving, but patient easily fatigues. Overall patient is making slow improvement, and tinea with current plan of care. On 12/19/2017 patient seen in follow-up, continues to improve. Lung sounds reveal good air entry bilaterally, with scattered wheezes, patient is able to ambulate to the bathroom, does become dyspneic, but recovers would rest. She is on 2 L per nasal cannula with O2 sat at 96%. She remains afebrile, microbiology results, blood, sputum, urine cultures remain negative. Patient continues on antibiotics in the form of ciprofloxacin, she continues on oral prednisone 50 mg daily. Continues on nebulized treatments, she has completed a course of Tamiflu. Discharge planning is in progress for discharge to the subacute rehab [facility] today, and pulmonary standpoint she is stable for discharge there today. Objective - Vital Signs Vital signs: Vital Signs Temp 96.7 F L 12/19/17 07:00 Pulse 80 12/19/17 08:40 Resp 16 12/19/17 07:00 BP 184/70 12/19/17 07:00 Pulse Ox 96 12/19/17 10:49 Intake & Output 12/18/17 12/19/17 12/19/17 18:59 06:59 18:59 Intake Total 680 500 Balance 680 500 Weight 65 kg Intake: Oral 680 500 Other: Voiding Method Toilet Toilet Toilet # Voids 1 2 - Exam GENERAL EXAM: Alert, comfortable in no apparent distress. HEAD: Normocephalic. EYES: Normal reaction of pupils, equal size. NOSE: Clear with pink turbinates. THROAT: No erythema or exudates. NECK: No masses, no JVD. CHEST: No chest wall deformity. LUNGS: Equal air entry with scattered wheezing throughout the lung campbell, no rhonchi. Good air entry noted bilaterally, patient is able to tolerate ambulating to the bathroom, does become dyspneic but improves with rest. CVS: S1 and S2 normal with no audible murmur, regular rhythm. ABDOMEN: No hepatosplenomegaly, normal bowel sounds, no guarding or rigidity. SPINE: No scoliosis or deformity SKIN: No rashes, ecchymosis from chronic steroids. CENTRAL NERVOUS SYSTEM: No focal deficits, tone is normal in all 4 extremities. EXTREMITIES: There is no peripheral edema. No clubbing, no cyanosis. Peripheral pulses are intact. - Labs CBC & Chem 7: 12/14/17 07:15 12/19/17 07:26 Labs: Abnormal Lab Results - Last 24 Hours (Table) 12/19/17 Range/Units 07:26 Chloride 108 H (98-107) mmol/L BUN 54 H (7-17) mg/dL Creatinine 1.28 H (0.52-1.04) mg/dL Glucose 67 L (74-99) mg/dL Microbiology - Last 24 Hours (Table) 12/16/17 20:52 Gram Stain - Final Sputum Sputum Culture - Final 12/13/17 15:23 Blood Culture - Preliminary Blood No Growth after 120 hours 12/13/17 15:43 Blood Culture - Preliminary Blood No Growth after 120 hours Assessment and Plan Plan: Assessment: #1 Acute exacerbation of oxygen dependent chronic obstructive pulmonary disease secondary to acute influenza B infection. #2 Acute on chronic hypoxic respiratory failure secondary to above #3 Mild troponin leak. #4 History of coronary artery disease with previous stent placement. #5 Acute on chronic renal failure. #6 Hypothyroidism. #7 Hypertension. #8 Hyperlipidemia. #9 Poor overall functional performance based on the above-mentioned multiple comorbidities. Plan: Patient continues to improve, tolerating more activity, her appetite is improving, her vital signs are stable. Microbiology results remain negative. Patient is stable for discharge to [facility] today, on outpatient course of prednisone, and ciprofloxacin 500 mg twice a day for 7 more days. He can continue on DuoNeb nebulized treatments, Mucinex, Pulmicort, Per[facility]omist at the [facility]. She will need follow-up with Dr. Colon in the office in 7 days. I performed a history & physical examination of the patient and discussed their management with my nurse practitioner, Eva Watson. I reviewed the nurse practitioner's note and agree with the documented findings and plan of care. Lung sounds are positive for scattered wheezes throughout the lung campbell, improved. The findings and the impression was discussed with the patient. I attest to the documentation by the nurse practitioner. Time with Patient: Less than 30
[2017-12-19] MEDS: VIT A,C & E-LUTEIN-MINERALS 1 EACH TAB PO SCH (11:24)
[2017-12-19] MEDS: CALCIUM CARBONATE 500 MG CHEWABLE PO SCH (11:24)
[2017-12-19 13:40] VITALS: PULSE 80
--- NOTE | 2017-12-19 14:04 | XR ---
EXAMINATION TYPE: XR chest 2V DATE OF EXAM: 12/19/2017 COMPARISON: 12/16/2017 HISTORY: Shortness of breath TECHNIQUE: Frontal and lateral views of the chest are obtained. FINDINGS: Scattered senescent parenchymal changes noted. Hyperinflation compatible with COPD. Upper lobe nodular density. Ill-defined opacity right upper lobe as well. Overall stable findings. Heart size is stable. Mediastinal structures are stable and grossly unremarkable. No evidence for hilar prominence. Degenerative changes dorsal spine. IMPRESSION: 1. Stable evaluation.
[2017-12-19] MEDS: INDACATEROL INHALATION SCH (14:31)
[2017-12-19] MEDS: GLYCOPYRROLATE INHALATION SCH (14:31)
--- NOTE | 2017-12-19 14:34 | DS ---
DISCHARGE SUMMARY DATE OF ADMISSION: 12/09/2017. DATE OF DISCHARGE: 12/19/2017 FINAL DIAGNOSES: 1. Acute chronic obstructive pulmonary disease exacerbation with acute influenza B. 2. Acute pneumonitis probably from influenza B and also gram-negative organism, possibly. 3. Acute on chronic hypoxic respiratory failure secondary to chronic obstructive pulmonary disease. 4. Coronary artery disease, prior history of stent. 5. Hypothyroidism. 6. Essential hypertension. 7. Hyperlipidemia. 8. Acute renal failure, present on admission, likely prerenal, now stabilized. 9. Chronic kidney disease probably from hypertensive nephrosclerosis stage III. 10.Chronic congestive heart failure from diastolic dysfunction. Ejection fraction 50% to 55% with underlying chronic obstructive pulmonary disease. HOSPITAL COURSE: This patient presented with severe COPD exacerbation from influenza B and possible pneumonitis. Doing better at the time of discharge. On exam, lungs some basal crackles, mild wheezing. Patient's BUN is 54, creatinine 1.28. CONSULTATION: Dr. Tang from Pulmonary. The patient did have a 2-D echocardiogram, EF of 55% to 60%. DISCHARGE MEDICATIONS: 1. Imdur ER 30 mg p.o. daily. 2. Lipitor 40 mg p.o. daily. 3. Tenormin 50 mg p.o. b.i.d. 4. DuoNeb q.i.d. 5. Aspirin 81 mg p.o. daily. 6. Nitrostat 0.4 sublingual q.5 p.r.n. 7. PreserVision Areds 2 softgels, 1 capsule p.o. b.i.d. 8. Synthroid 50 mcg p.o. daily. 9. Prednisone 20 mg a day. 10.Continue allopurinol 100 mg a day. 11.Calcium 600 mg a day. 12.Utibron Neohaler 27.5/15.6 one puff daily. 13.Xalatan 0.005% 1 drop to both eyes q.h.s. 14.Tylenol 650 mg b.i.d. p.r.n. 15.Pulmicort 1 mg nebulizer b.i.d. 16.Imodium 2 mg q.i.d. p.r.n. 17.Lasix 20 mg daily. 18.Ceftin 250 mg twice a day for 3 days. 19.Oxygen 2 L. DISPOSITION: [facility]. Follow with Dr. Charles at the [facility]; follow up with Dr. oClon in 1 week. MMODL / IJN: [id number] /
== END 2017-12-19 14:30 | DRG 871 ==
LOC: EC 10:22 → 3SUR 12:13 → 5MS5E 12:52 → 6SEL 12-10 00:50 → 4MS4W 12-11 12:56
PROVIDERS: ADMIT Hospitalist; ATTEND Hospitalist
DX: A41.89 Other specified sepsis (principal); J10.08 Influenza due to other identified influenza virus with other specified pneumonia; I21.A1 Myocardial infarction type 2; J96.21 Acute and chronic respiratory failure with hypoxia; J96.22 Acute and chronic respiratory failure with hypercapnia; J15.6 Pneumonia due to other Gram-negative bacteria; N17.9 Acute kidney failure, unspecified; I13.0 Hypertensive heart and chronic kidney disease with heart failure and stage 1 through stage 4 chronic kidney disease, or unspecified chronic kidney disease; I50.32 Chronic diastolic (congestive) heart failure; J44.0 Chronic obstructive pulmonary disease with (acute) lower respiratory infection; J44.1 Chronic obstructive pulmonary disease with (acute) exacerbation; Z99.81 Dependence on supplemental oxygen; J84.10 Pulmonary fibrosis, unspecified; N18.3 Chronic kidney disease, stage 3 (moderate); I35.0 Nonrheumatic aortic (valve) stenosis; E78.5 Hyperlipidemia, unspecified; I25.10 Atherosclerotic heart disease of native coronary artery without angina pectoris; E03.9 Hypothyroidism, unspecified; I25.2 Old myocardial infarction; D50.9 Iron deficiency anemia, unspecified; R91.1 Solitary pulmonary nodule; H40.9 Unspecified glaucoma; I45.9 Conduction disorder, unspecified; Z79.82 Long term (current) use of aspirin; Z79.52 Long term (current) use of systemic steroids; Z79.899 Other long term (current) drug therapy; Z90.49 Acquired absence of other specified parts of digestive tract; Z95.5 Presence of coronary angioplasty implant and graft; Z90.710 Acquired absence of both cervix and uterus; Z98.42 Cataract extraction status, left eye; Z98.41 Cataract extraction status, right eye; Z87.891 Personal history of nicotine dependence; Z88.1 Allergy status to other antibiotic agents; Z88.5 Allergy status to narcotic agent
CPT/HCPCS: 36415; 71045; 71046; 80048; 80053; 81003; 82550; 82553; 83605; 84484; 85025; 85027; 85610; 85730; 87040; 87070; 87086; 87205; 87502; 93005; 93306; 94640; 94667; 94668; 94760; 96361; 96365; 96375; 99285

== ENCOUNTER 2018-01-28 11:48 | Inpatient (IN) | payer MEDICARE, BC ==
[2018-01-28] MEDS ORDERED: ALBUTEROL NEBULIZED 2.5 MG/3 ML INHALATION STA (12:08)
[2018-01-28] MEDS ORDERED: FUROSEMIDE 10 MG/ML 4 ML VIAL IV STA (12:08)
--- NOTE | 2018-01-28 12:13 | ED ---
General Adult HPI - General Chief complaint: Shortness of Breath Stated complaint: SOB Time Seen by Provider: 01/28/18 11:55 Source: patient, family, EMS, RN notes reviewed Mode of arrival: EMS - History of Present Illness Initial comments: This is an 82-year-old female who comes emergency Department complaining of difficulty breathing. Patient states she was diagnosed with pneumonia at the longterm so they sent her to the emergency department. Patient states started a few days ago. Patient is also noted increased swelling to her legs. Patient does have a past medical history significant for congestive heart failure as well as COPD. Patient denies any fever chills. Patient denies any chest pain or palpitations. Patient denies abdominal pain patient denies nausea vomiting diarrhea. Patient denies headache patient denies numbness weakness. - Related Data Home Medications Medication Instructions Recorded Confirmed Isosorbide Mononitrate ER [Imdur] 30 mg PO DAILY 03/07/14 01/28/18 Aspirin EC [Ecotrin Low Dose] 81 mg PO HS 04/29/16 01/28/18 Nitroglycerin Sl Tabs [Nitrostat] 0.4 mg SUBLINGUAL Q5M PRN 04/29/16 01/28/18 Vit C/E/Zn/Coppr/Lutein/Zeaxan 1 cap PO BID 04/29/16 01/28/18 [Preservision Areds 2 Softgel] Levothyroxine Sodium [Synthroid] 50 mcg PO DAILY 09/23/16 01/28/18 Allopurinol [Zyloprim] 100 mg PO DAILY 12/09/17 01/28/18 Calcium Carbonate [Calcium] 600 mg PO DAILY 12/09/17 01/28/18 Latanoprost [Xalatan 0.005%] 1 drop BOTH EYES HS 12/09/17 01/28/18 Levofloxacin [Levaquin] 500 mg PO DAILY 01/28/18 01/28/18 Melatonin 1 mg PO HS PRN 01/28/18 01/28/18 Morphine Sulfate [Morphine Sulfate 100 mg PO Q1H PRN 01/28/18 01/28/18 Oral Solution] Omeprazole 20 mg PO DAILY 01/28/18 01/28/18 Salmeterol Xinafoate [Serevent 1 puff INHALATION RT-BID 01/28/18 01/28/18 Diskus] predniSONE 40 mg PO DAILY 01/28/18 01/28/18 Previous Rx's Medication Instructions Recorded Atenolol [Tenormin] 50 mg PO BID tab 11/16/15 Ipratropium-Albuterol Nebulize 3 ml INHALATION RT-QID #0 11/16/15 [Duoneb 0.5 mg-3 mg/3 ml Soln] Acetaminophen Tab [Tylenol] 650 mg PO BID PRN tab 12/19/17 Budesonide [Pulmicort] 1 mg INHALATION RT-BID nebu 12/19/17 Furosemide [Lasix] 20 mg PO DAILY #1 tab 12/19/17 Loperamide [Imodium] 2 mg PO QID PRN cap 12/19/17 Allergies Allergy/AdvReac Type Severity Reaction Status Date / Time azithromycin [From Zithromax] Allergy Severe Dyspnea Verified 01/28/18 12:19 chocolate flavor Allergy Unknown Verified 01/28/18 12:19 codeine Allergy Dyspnea Verified 01/28/18 12:19 erythromycin base Allergy Dyspnea Verified 01/28/18 12:19 [Erythromycin Base] Review of Systems ROS Statement: Those systems with pertinent positive or pertinent negative responses have been documented in the HPI. ROS Other: All systems not noted in ROS Statement are negative. Past Medical History Past Medical History: Heart Failure, COPD, Hyperlipidemia, Hypertension, Myocardial Infarction ([place]), Pneumonia, Thyroid Disorder Additional Past Medical History / Comment(s): COPD-home 02 2.5 liters n/c atc , coronary artery disease with previous [place], hypothyroidism, hyperlipidemia, previous history of influenza infection, glaucoma, iron deficiency, chronic renal failure, hypertension Last Myocardial Infarction Date:: History of Any Multi-Drug Resistant Organisms: None Reported Past Surgical History: Cholecystectomy, Heart Catheterization, Heart Catheterization With Stent, Hysterectomy, Tonsillectomy Additional Past Surgical History / Comment(s): parathyroidectomy, bilateral cataract surgery, BLADDER suspension surgery, right inguinal hernia repair, left hand tendon repair. Past Anesthesia/Blood Transfusion Reactions: No Reported Reaction Date of Last Stent Placement:: 1999 Past Psychological History: No Psychological Hx Reported Smoking Status: Former smoker Past Alcohol Use History: None Reported Past Drug Use History: None Reported - Past Family History Father Family Medical History: Myocardial Infarction ([place]) Additional Family Medical History / Comment(s): AT AGE 83 Mother Family Medical History: Congestive Heart Failure (CHF), Coronary Artery Disease (CAD), Renal Disease Additional Family Medical History / Comment(s): AT AGE 79 General Exam - General Exam Comments Initial Comments: GENERAL: Patient is well-developed and well-nourished. Patient is nontoxic and well- hydrated and is in mild distress. ENT: Neck is soft and supple. No significant lymphadenopathy is noted. Oropharynx is clear. Moist mucous membranes. EYES: The sclera were anicteric and conjunctiva were pink and moist. Extraocular movements were intact and pupils were equal round and reactive to light. Eyelids were unremarkable. PULMONARY: Patient has crackles in the bases and diminished breath sounds throughout. CARDIOVASCULAR: There is a regular rate and rhythm without any murmurs gallops or rubs. ABDOMEN: Soft and nontender with normal bowel sounds. No palpable organomegaly was noted. There is no palpable pulsatile mass. SKIN: Skin is clear with no lesions or rashes and otherwise unremarkable. NEUROLOGIC: Patient is alert and oriented x3. Cranial nerves II through XII are grossly intact. Motor and sensory are also intact. Normal speech, volume and content. Symmetrical smile. MUSCULOSKELETAL: Normal extremities with adequate strength and full range of motion. 1+ edema bilaterally LYMPHATICS: No significant lymphadenopathy is noted PSYCHIATRIC: Normal psychiatric evaluation. Course Vital Signs 01/28/18 01/28/18 01/28/18 11:56 12:24 12:25 Temperature 99.4 F Pulse Rate 117 H Pulse Rate [ 113 H [employer] ] Respiratory 28 H 28 H Rate Blood Pressure 149/63 O2 Sat by Pulse 98 Oximetry 01/28/18 01/28/18 01/28/18 12:30 12:37 12:42 Temperature Pulse Rate 110 H 112 H 113 H Pulse Rate [ [employer] ] Respiratory 28 H Rate Blood Pressure 146/62 O2 Sat by Pulse 99 Oximetry 01/28/18 01/28/18 13:08 14:16 Temperature 98.5 F Pulse Rate 114 H 110 H Pulse Rate [ [employer] ] Respiratory 30 H 24 Rate Blood Pressure 120/53 119/70 O2 Sat by Pulse 96 100 Oximetry Medical Decision Making - Medical Decision Making EKG shows sinus tachycardia with PACs at 115 bpm NV interval is 184 QRS is 122 QTC is 489 Q-T is 354. Patient has Q waves anteriorly. Patient's troponin was mildly elevated. Patient is very high white count I started the patient on antibiotics. I spoke with Dr. Dr. Diaz I admitted the patient I wrote admitting orders. I consult to cardiology Chest x-ray shows a right upper lobe pneumonia and some possible pulmonary edema. Patient received some Lasix. Patient desats once taken off of the venting mask - Lab Data Result diagrams: 01/28/18 12:15 01/28/18 13:15 Lab Results 01/28/18 01/28/18 01/28/18 Range/Units 12:08 12:15 12:15 WBC 23.2 H (3.8-10.6) k/uL RBC 3.53 L (3.80-5.40) m/uL Hgb 10.6 L (11.4-16.0) gm/dL Hct 33.3 L (34.0-46.0) % MCV 94.4 (80.0-100.0) fL MCH 30.1 (25.0-35.0) pg MCHC 31.9 (31.0-37.0) g/dL RDW 16.4 H (11.5-15.5) % Plt Count 379 (150-450) k/uL Neutrophils % 78 % Lymphocytes % 12 % Monocytes % 7 % Eosinophils % 2 % Basophils % 0 % Neutrophils # 18.0 H (1.3-7.7) k/uL Lymphocytes # 2.7 (1.0-4.8) k/uL Monocytes # 1.6 H (0-1.0) k/uL Eosinophils # 0.5 (0-0.7) k/uL Basophils # 0.1 (0-0.2) k/uL Hypochromasia Slight Anisocytosis Slight PT (9.0-12.0) sec INR (<1.2) APTT (22.0-30.0) sec Sodium (137-145) mmol/L Potassium (3.5-5.1) mmol/L Chloride (98-107) mmol/L Carbon Dioxide (22-30) mmol/L Anion Gap mmol/L BUN (7-17) mg/dL Creatinine (0.52-1.04) mg/dL Est GFR (CKD-EPI)AfAm (>60 ml/min/1.73 sqM) Est GFR (CKD-EPI)NonAf (>60 ml/min/1.73 sqM) Glucose (74-99) mg/dL Plasma Lactic Acid Mart 1.2 (0.7-2.0) mmol/L Calcium (8.4-10.2) mg/dL Magnesium (1.6-2.3) mg/dL Total Bilirubin (0.2-1.3) mg/dL AST (14-36) U/L ALT (9-52) U/L Alkaline Phosphatase (38-126) U/L Total Creatine Kinase (30-135) U/L CK-MB (CK-2) (0.0-2.4) ng/mL CK-MB (CK-2) Rel Index Troponin I (0.000-0.034) ng/mL NT-Pro-B Natriuret Pep 68219 pg/mL Total Protein (6.3-8.2) g/dL Albumin (3.5-5.0) g/dL 01/28/18 01/28/18 01/28/18 Range/Units 13:15 13:15 13:15 WBC (3.8-10.6) k/uL RBC (3.80-5.40) m/uL Hgb (11.4-16.0) gm/dL Hct (34.0-46.0) % MCV (80.0-100.0) fL MCH (25.0-35.0) pg MCHC (31.0-37.0) g/dL RDW (11.5-15.5) % Plt Count (150-450) k/uL Neutrophils % % Lymphocytes % % Monocytes % % Eosinophils % % Basophils % % Neutrophils # (1.3-7.7) k/uL Lymphocytes # (1.0-4.8) k/uL Monocytes # (0-1.0) k/uL Eosinophils # (0-0.7) k/uL Basophils # (0-0.2) k/uL Hypochromasia Anisocytosis PT 10.2 (9.0-12.0) sec INR 1.0 (<1.2) APTT 22.2 (22.0-30.0) sec Sodium 144 (137-145) mmol/L Potassium 3.8 (3.5-5.1) mmol/L Chloride 100 (98-107) mmol/L Carbon Dioxide 32 H (22-30) mmol/L Anion Gap 12 mmol/L BUN 41 H (7-17) mg/dL Creatinine 1.38 H (0.52-1.04) mg/dL Est GFR (CKD-EPI)AfAm 41 (>60 ml/min/1.73 sqM) Est GFR (CKD-EPI)NonAf 35 (>60 ml/min/1.73 sqM) Glucose 100 H (74-99) mg/dL Plasma Lactic Acid Mart (0.7-2.0) mmol/L Calcium 9.2 (8.4-10.2) mg/dL Magnesium 1.1 L (1.6-2.3) mg/dL Total Bilirubin 0.7 (0.2-1.3) mg/dL AST 35 (14-36) U/L ALT 29 (9-52) U/L Alkaline Phosphatase 96 (38-126) U/L Total Creatine Kinase 21 L (30-135) U/L CK-MB (CK-2) 2.3 (0.0-2.4) ng/mL CK-MB (CK-2) Rel Index 11.0 Troponin I 0.196 H* (0.000-0.034) ng/mL NT-Pro-B Natriuret Pep pg/mL Total Protein 5.7 L (6.3-8.2) g/dL Albumin 3.2 L (3.5-5.0) g/dL Critical Care Time Critical Care Time: Yes Total Critical Care Time: 35 Disposition Clinical Impression: Non-STEMI (non-ST elevated myocardial infarction), Pneumonia, Pulmonary edema Disposition: ADMITTED IP TO THIS HOSP Referrals: Ayan Charles DO [Primary Care Provider] - 1-2 days Time of Disposition: 14:30
[2018-01-28 12:23] LABS: Anisocytosis Slight; Basophils # (A) 0.1 k/uL (0-0.2); Basophils % (A) 0 %; Eosinophils # (A) 0.5 k/uL (0-0.7); Eosinophils % (A) 2 %; HCT 33.3 % (34.0-46.0); HGB 10.6 gm/dL (11.4-16.0); Hypochromasia Slight; Lymphocytes # (A) 2.7 k/uL (1.0-4.8); Lymphocytes % (A) 12 %; MCH 30.1 pg (25.0-35.0); MCHC 31.9 g/dL (31.0-37.0); MCV 94.4 fL (80.0-100.0); Mean Platelet Volume 7.6; Monocytes # (A) 1.6 k/uL (0-1.0); Monocytes % (A) 7 %; Neutrophils % (A) 78 %; Platelet Count 379 k/uL (150-450); RBC 3.53 m/uL (3.80-5.40); RDW 16.4 % (11.5-15.5); WBC 23.2 k/uL (3.8-10.6)
[2018-01-28] MEDS: LORazepam 2 MG/ML INJ IV STA ×2 (12:41→16:28)
--- NOTE | 2018-01-28 13:14 | XR ---
EXAMINATION TYPE: XR chest 2V DATE OF EXAM: 01/28/2018 COMPARISON: 12/19/2017 HISTORY: Shortness of breath TECHNIQUE: Frontal and lateral views of the chest are obtained. FINDINGS: Scattered senescent parenchymal changes noted. Hyperinflation compatible with COPD. Spiculated nodule left upper lobe is unchanged. Increased patchy density right upper lobe and right lower lobe may ref lect developing pneumonia. No evidence for infiltrate. No evidence for atelectasis. Heart size is stable. Mediastinal structures are stable and grossly unremarkable. No evidence for hilar prominence. Degenerative changes dorsal spine. IMPRESSION: 1. Correlate for developing pneumonia. 2. Stable spiculated nodule left upper lobe.
[2018-01-28] MEDS ORDERED: cefTRIAXone IN SWFI 1,000 MG/10 ML SYRINGE IVP STA (13:19)
[2018-01-28 13:43] LABS: Partial Thromboplastin Time 22.2 sec (22.0-30.0); Prothrombin Time 10.2 sec (9.0-12.0)
[2018-01-28 14:12] LABS: Albumin 3.2 g/dL (3.5-5.0); Calcium 9.2 mg/dL (8.4-10.2); Magnesium 1.1 mg/dL (1.6-2.3); Potassium 3.8 mmol/L (3.5-5.1); Total Bilirubin 0.7 mg/dL (0.2-1.3); Total Protein 5.7 g/dL (6.3-8.2)
[2018-01-28 14:15] LABS: Creatine Kinase MB 2.3 ng/mL (0.0-2.4)
[2018-01-28 14:21] LABS: Troponin I 0.196 ng/mL (0.000-0.034)
[2018-01-28] MEDS ORDERED: HEPARIN SODIUM,PORCINE 5,000 UNIT/ML 1 ML VIAL IV ONE (14:31)
[2018-01-28] MEDS ORDERED: LEVOFLOXACIN 750MG-D5W PMX 750 MG in DEXTROSE/WATER 1 150ML.BAG IVPB STA (14:33)
[2018-01-28] MEDS ORDERED: PNEUMONIA PROTOCOL UTILIZED 1 EACH MISC PO PRN (14:33)
[2018-01-28] MEDS: HEPARIN SOD,PORK IN 0.45% NACL 25,000 UNIT in 0.45% NACL 1 500ML.BAG IV SCH (15:23)
[2018-01-28] MEDS ORDERED: IPRATROPIUM-ALBUTEROL 3 ML NEB INHALATION SCH (16:00)
[2018-01-28] MEDS ORDERED: LORazepam 2 MG/ML INJ IV STA (16:24)
[2018-01-28] MEDS ORDERED: NITROGLYCERIN SL TABS 0.4 MG TAB SUBLINGUAL PRN (18:19)
[2018-01-28] MEDS ORDERED: ACETAMINOPHEN TAB 325 MG TAB PO PRN (18:19)
[2018-01-28] MEDS ORDERED: MELATONIN 1 MG TAB PO PRN (18:19)
--- NOTE | 2018-01-28 18:57 | P.HPIM ---
History of Present Illness 79-year-old female was sent from long-term as patient was quite a bit short of breath, not able to get much of the history from the patient patient was on BiPAP which Was subsequently removed care because patient was having coffee- ground emesis patient was diagnosed with pneumonia was sent in here for significantly hypoxic tripoding because of which patient was started on BiPAP. Chest x-ray showing developing pneumonia on the right upper lobes my suspicion is low for pulmonary edema. Patient had normal ejection fraction the past patient doesn't have any fever does have leukocytosis. Patient does have highly elevated BNP unable to assess her JVD because of accessory is a breathing on the BiPAP and without BiPAP. Patient was coughing as well with the greenish sputum production, patient does have history of COPD does use 2.5 L of oxygen at home. Patient was started on levofloxacin and Zosyn will be added. Patient was started on Lasix my suspicion is low for pulmonary edema because of which at this can you Lasix patient to kidney function is already borderline at 1.2 baseline creatinine is around 1.3. Review of Systems Unable to obtain due to her clinical condition and patient being on BiPAP Past Medical History Past Medical History: Heart Failure, COPD, Hyperlipidemia, Hypertension, Myocardial Infarction ([place]), Pneumonia, Thyroid Disorder Additional Past Medical History / Comment(s): COPD-home 02 2.5 liters n/c atc , coronary artery disease with previous [place], hypothyroidism, hyperlipidemia, previous history of influenza infection, glaucoma ([place]), iron deficiency, chronic renal failure, hypertension Last Myocardial Infarction Date:: History of Any Multi-Drug Resistant Organisms: None Reported Past Surgical History: Cholecystectomy, Heart Catheterization, Heart Catheterization With Stent, Hysterectomy, Tonsillectomy Additional Past Surgical History / Comment(s): parathyroidectomy, bilateral cataract surgery, BLADDER suspension surgery, right inguinal hernia repair, left hand tendon repair. Past Anesthesia/Blood Transfusion Reactions: No Reported Reaction Date of Last Stent Placement:: 1999 Smoking Status: Former smoker - Past Family History Father Family Medical History: Myocardial Infarction ([place]) Additional Family Medical History / Comment(s): AT AGE 83 Mother Family Medical History: Congestive Heart Failure (CHF), Coronary Artery Disease (CAD), Renal Disease Additional Family Medical History / Comment(s): AT AGE 79 Medications and Allergies Home Medications Medication Instructions Recorded Confirmed Type Isosorbide Mononitrate ER [Imdur] 30 mg PO DAILY 03/07/14 01/28/18 History Atenolol [Tenormin] 50 mg PO BID tab 11/16/15 01/28/18 Rx Ipratropium-Albuterol Nebulize 3 ml INHALATION RT-QID #0 11/16/15 01/28/18 Rx [Duoneb 0.5 mg-3 mg/3 ml Soln] Aspirin EC [Ecotrin Low Dose] 81 mg PO HS 04/29/16 01/28/18 History Nitroglycerin Sl Tabs [Nitrostat] 0.4 mg SUBLINGUAL Q5M PRN 04/29/16 01/28/18 History Vit C/E/Zn/Coppr/Lutein/Zeaxan 1 cap PO BID 04/29/16 01/28/18 History [Preservision Areds 2 Softgel] Levothyroxine Sodium [Synthroid] 50 mcg PO DAILY 09/23/16 01/28/18 History Allopurinol [Zyloprim] 100 mg PO DAILY 12/09/17 01/28/18 History Calcium Carbonate [Calcium] 600 mg PO DAILY 12/09/17 01/28/18 History Latanoprost [Xalatan 0.005%] 1 drop BOTH EYES HS 12/09/17 01/28/18 History Acetaminophen Tab [Tylenol] 650 mg PO BID PRN tab 12/19/17 01/28/18 Rx Budesonide [Pulmicort] 1 mg INHALATION RT-BID nebu 12/19/17 01/28/18 Rx Furosemide [Lasix] 20 mg PO DAILY #1 tab 12/19/17 01/28/18 Rx Loperamide [Imodium] 2 mg PO QID PRN cap 12/19/17 01/28/18 Rx Levofloxacin [Levaquin] 500 mg PO DAILY 01/28/18 01/28/18 History Melatonin 1 mg PO HS PRN 01/28/18 01/28/18 History Morphine Sulfate [Morphine Sulfate 100 mg PO Q1H PRN 01/28/18 01/28/18 History Oral Solution] Omeprazole 20 mg PO DAILY 01/28/18 01/28/18 History Salmeterol Xinafoate [Serevent 1 puff INHALATION RT-BID 01/28/18 01/28/18 History Diskus] predniSONE 40 mg PO DAILY 01/28/18 01/28/18 History Allergies Allergy/AdvReac Type Severity Reaction Status Date / Time azithromycin [From Zithromax] Allergy Severe Dyspnea Verified 01/28/18 12:19 chocolate flavor Allergy Unknown Verified 01/28/18 12:19 codeine Allergy Dyspnea Verified 01/28/18 12:19 erythromycin base Allergy Dyspnea Verified 01/28/18 12:19 [Erythromycin Base] Physical Exam Vitals: Vital Signs Temp Pulse Pulse Resp BP Pulse Ox 01/28/18 17:50 97 26 H 104/51 99 01/28/18 16:31 95 01/28/18 16:28 104 H 26 H 120/55 94 L 01/28/18 15:55 106 H 26 H 110/87 95 01/28/18 15:54 118 H 01/28/18 15:35 122 H 01/28/18 15:00 102 H 26 H 110/51 99 01/28/18 14:16 98.5 F 110 H 24 119/70 100 01/28/18 13:08 114 H 30 H 120/53 96 01/28/18 12:42 113 H 01/28/18 12:37 112 H 28 H 146/62 99 01/28/18 12:30 110 H 01/28/18 12:25 113 H 01/28/18 12:24 28 H 01/28/18 11:56 99.4 F 117 H 28 H 149/63 98 Intake and Output 01/28/18 01/28/18 01/28/18 06:59 14:59 22:59 Output Total 50 Balance -50 Output: Urine 50 Other: Weight 60.328 kg PHYSICAL EXAMINATION: GENERAL: The patient is drowsy thin built using accessory is of breathing on BiPAP HEENT: Pupils are round and equally reacting to light. EOMI. No scleral icterus. No conjunctival pallor. Normocephalic, atraumatic. No pharyngeal erythema. No thyromegaly. CARDIOVASCULAR: S1 and S2 present. No murmurs, rubs, or gallops. PULMONARY: Rhonchus breath sounds bilaterally expiratory wheezing was appreciated decreased air entry into bilateral lung campbell. ABDOMEN: Soft, nontender, nondistended, normoactive bowel sounds. No palpable organomegaly. MUSCULOSKELETAL: No joint swelling or deformity. EXTREMITIES: No cyanosis, clubbing, or pedal edema. NEUROLOGICAL: Gross neurological examination did not reveal any focal deficits. SKIN: No rashes. Results CBC & Chem 7: 01/28/18 12:15 01/28/18 13:15 Labs: Abnormal Lab Results - Last 24 Hours (Table) 01/28/18 01/28/18 01/28/18 Range/Units 12:15 13:15 13:15 WBC 23.2 H (3.8-10.6) k/uL RBC 3.53 L (3.80-5.40) m/uL Hgb 10.6 L (11.4-16.0) gm/dL Hct 33.3 L (34.0-46.0) % RDW 16.4 H (11.5-15.5) % Neutrophils # 18.0 H (1.3-7.7) k/uL Monocytes # 1.6 H (0-1.0) k/uL Carbon Dioxide 32 H (22-30) mmol/L BUN 41 H (7-17) mg/dL Creatinine 1.38 H (0.52-1.04) mg/dL Glucose 100 H (74-99) mg/dL Magnesium 1.1 L (1.6-2.3) mg/dL Total Creatine Kinase 21 L (30-135) U/L Troponin I 0.196 H* (0.000-0.034) ng/mL Total Protein 5.7 L (6.3-8.2) g/dL Albumin 3.2 L (3.5-5.0) g/dL Assessment and Plan Plan: -Acute on chronic hypercapnic respiratory failure as well as acute hypoxic respiratory failure: Secondary to possible COPD exacerbation and early SIRS of right upper lobe pneumonia respectively. Patient was started on Rocephin and azithromycin, systemic steroids inhalational treatments. -Chronic hypercapnic respiratory failure secondary to COPD uses 2.3 L of oxygen -Hyperlipidemia -Elevated troponin secondary to hypoxemia and sepsis. 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 Patient tachycardia is secondary to hypoxemia -Elevated BNP, cardiology was consulted by from ER my suspicion is low that patient has pulmonary edema in spite of elevated BNP but will get the opinion from pulmonary as well as Cardiology
[2018-01-28] MEDS: BUDESONIDE 1 MG/2 ML NEBU INHALATION SCH (19:29)
[2018-01-28] MEDS: IPRATROPIUM-ALBUTEROL 3 ML NEB INHALATION SCH (19:29)
[2018-01-28] MEDS: FORMOTEROL FUMARATE 20 MCG/2 ML NEBU INHALATION SCH (19:29)
[2018-01-28] MEDS: PIPERACILLIN-TAZOBACTAM 3.375 GM in DEXTROSE/WATER 1 50ML.BAG IVPB SCH (19:32)
[2018-01-28] MEDS ORDERED: FUROSEMIDE 10 MG/ML 2 ML VIAL IV SCH (20:00)
[2018-01-28 20:57] LABS: Glucose,Whole Blood 89 mg/dL (75-99)
[2018-01-28] MEDS: METOPROLOL TARTRATE 25 MG TAB PO SCH (21:54)
[2018-01-28] MEDS: ASPIRIN 81 MG PO SCH (21:55)
[2018-01-28] MEDS: methylPREDNISolone SOD SUCCI 40 MG/ML 1 ML VIAL IV SCH (21:55)
[2018-01-29] MEDS: PIPERACILLIN-TAZOBACTAM 3.375 GM in DEXTROSE/WATER 1 50ML.BAG IVPB SCH ×3 (03:02→23:17)
[2018-01-29 04:28] LABS: Anisocytosis Slight; HCT 27.3 % (34.0-46.0); Hypochromasia Slight; MCH 30.9 pg (25.0-35.0); MCHC 32.8 g/dL (31.0-37.0); MCV 94.3 fL (80.0-100.0); Mean Platelet Volume 7.2; Platelet Count 208 k/uL (150-450); RDW 16.2 % (11.5-15.5); WBC 11.8 k/uL (3.8-10.6)
[2018-01-29 04:42] LABS: Calcium 8.4 mg/dL (8.4-10.2); Potassium 4.1 mmol/L (3.5-5.1)
[2018-01-29 06:06] LABS: Glucose,Whole Blood 115 mg/dL (75-99)
[2018-01-29] MEDS: LEVOTHYROXINE 50 MCG TAB PO SCH (06:34)
[2018-01-29] MEDS: PANTOPRAZOLE 40 MG TABLET PO SCH ×2 (06:35→16:01)
[2018-01-29] MEDS ORDERED: Magnesium Replacement Protocol 1 EACH MISC MISCELLANE PRN (06:47)
[2018-01-29] MEDS ORDERED: PANTOPRAZOLE 40 MG TABLET PO SCH (07:30)
[2018-01-29] MEDS: MAGNESIUM SULFATE-D5W PMX 1 GM in DEXTROSE/WATER 1 100ML.BAG IVPB SCH ×3 (07:59→11:00)
[2018-01-29] MEDS: FORMOTEROL FUMARATE 20 MCG/2 ML NEBU INHALATION SCH ×2 (08:36→19:35)
[2018-01-29] MEDS: IPRATROPIUM-ALBUTEROL 3 ML NEB INHALATION SCH ×4 (08:36→19:18)
[2018-01-29] MEDS: BUDESONIDE 1 MG/2 ML NEBU INHALATION SCH ×2 (08:37→19:35)
--- NOTE | 2018-01-29 09:28 | P.CRDCN ---
History of Present Illness Consult date: 01/29/18 Chief complaint: Shortness of breath History of present illness: This is a pleasant 82-year-old female patient who sees Dr. VC Thornton in the office as an outpatient with a past medical history significant for coronary artery disease and prior LAD stenting, hypertension, dyslipidemia, COPD , who resides currently at extended care facility was brought to the hospital because of shortness of breath. The patient just was not feeling well for the last couple of days. She was more short of breath and more importantly she was coughing extensively with sputum production. No fever and no chills. She was also wheezing. The patient does have chronic respiratory failure and she is on oxygen. She was admitted to the hospital with acute on chronic respiratory failure. We get involved in her care because of mildly abnormal cardiac enzymes. The patient did not have any symptoms of chest pain or chest discomfort. The EKG did not show any significant ST or T-wave abnormalities concerning for ischemia. Currently the patient is on antibiotic for pneumonia as well as she is on broncho-dilator. Hemodynamically she has marginally low blood pressure. Beside that she is on aspirin as well as metoprolol. She is slightly tachycardic. Past Medical History Past Medical History: Heart Failure, COPD, Hyperlipidemia, Hypertension, Myocardial Infarction (AR), Pneumonia, Thyroid Disorder Additional Past Medical History / Comment(s): COPD-home 02 2.5 liters n/c atc , coronary artery disease with previous AR, hypothyroidism, hyperlipidemia, previous history of influenza infection, glaucoma (AMBIKA), iron deficiency, chronic renal failure, hypertension Last Myocardial Infarction Date:: History of Any Multi-Drug Resistant Organisms: None Reported Past Surgical History: Cholecystectomy, Heart Catheterization, Heart Catheterization With Stent, Hysterectomy, Tonsillectomy Additional Past Surgical History / Comment(s): parathyroidectomy, bilateral cataract surgery, BLADDER suspension surgery, right inguinal hernia repair, left hand tendon repair. Past Anesthesia/Blood Transfusion Reactions: No Reported Reaction Date of Last Stent Placement:: 1999 Smoking Status: Former smoker - Past Family History Father Family Medical History: Myocardial Infarction (AR) Additional Family Medical History / Comment(s): AT AGE 83 Mother Family Medical History: Congestive Heart Failure (CHF), Coronary Artery Disease (CAD), Renal Disease Additional Family Medical History / Comment(s): AT AGE 79 Medications and Allergies Home Medications Medication Instructions Recorded Confirmed Type Isosorbide Mononitrate ER [Imdur] 30 mg PO DAILY 03/07/14 01/28/18 History Atenolol [Tenormin] 50 mg PO BID tab 11/16/15 01/28/18 Rx Ipratropium-Albuterol Nebulize 3 ml INHALATION RT-QID #0 11/16/15 01/28/18 Rx [Duoneb 0.5 mg-3 mg/3 ml Soln] Aspirin EC [Ecotrin Low Dose] 81 mg PO HS 04/29/16 01/28/18 History Nitroglycerin Sl Tabs [Nitrostat] 0.4 mg SUBLINGUAL Q5M PRN 04/29/16 01/28/18 History Vit C/E/Zn/Coppr/Lutein/Zeaxan 1 cap PO BID 04/29/16 01/28/18 History [Preservision Areds 2 Softgel] Levothyroxine Sodium [Synthroid] 50 mcg PO DAILY 09/23/16 01/28/18 History Allopurinol [Zyloprim] 100 mg PO DAILY 12/09/17 01/28/18 History Calcium Carbonate [Calcium] 600 mg PO DAILY 12/09/17 01/28/18 History Latanoprost [Xalatan 0.005%] 1 drop BOTH EYES HS 12/09/17 01/28/18 History Acetaminophen Tab [Tylenol] 650 mg PO BID PRN tab 12/19/17 01/28/18 Rx Budesonide [Pulmicort] 1 mg INHALATION RT-BID nebu 12/19/17 01/28/18 Rx Furosemide [Lasix] 20 mg PO DAILY #1 tab 12/19/17 01/28/18 Rx Loperamide [Imodium] 2 mg PO QID PRN cap 12/19/17 01/28/18 Rx Levofloxacin [Levaquin] 500 mg PO DAILY 01/28/18 01/28/18 History Melatonin 1 mg PO HS PRN 01/28/18 01/28/18 History Morphine Sulfate [Morphine Sulfate 100 mg PO Q1H PRN 01/28/18 01/28/18 History Oral Solution] Omeprazole 20 mg PO DAILY 01/28/18 01/28/18 History Salmeterol Xinafoate [Serevent 1 puff INHALATION RT-BID 01/28/18 01/28/18 History Diskus] predniSONE 40 mg PO DAILY 01/28/18 01/28/18 History Allergies Allergy/AdvReac Type Severity Reaction Status Date / Time azithromycin [From Zithromax] Allergy Severe Dyspnea Verified 01/28/18 12:19 chocolate flavor Allergy Unknown Verified 01/28/18 12:19 codeine Allergy Dyspnea Verified 01/28/18 12:19 erythromycin base Allergy Dyspnea Verified 01/28/18 12:19 [Erythromycin Base] Physical Exam Vitals: Vital Signs Temp Pulse Pulse Pulse Resp BP BP 01/29/18 09:15 97.2 F L 86 28 H 01/29/18 08:58 100 16 01/29/18 08:49 101 H 16 01/29/18 08:48 100 16 01/29/18 08:38 101 H 16 01/29/18 04:00 97.4 F L 88 18 95/49 01/29/18 00:00 97.0 F L 93 18 108/51 01/28/18 22:09 85/49 01/28/18 21:00 98.7 F 100 18 84/49 01/28/18 20:39 95 20 103/49 01/28/18 19:50 104 H 01/28/18 19:43 101 H 01/28/18 19:42 101 H 01/28/18 19:37 102 H 17 119/53 01/28/18 19:29 94 01/28/18 19:19 26 H 01/28/18 18:56 98 24 96/51 01/28/18 17:50 97 26 H 104/51 01/28/18 16:31 01/28/18 16:28 104 H 26 H 120/55 01/28/18 15:55 106 H 26 H 110/87 01/28/18 15:54 118 H 01/28/18 15:35 122 H 01/28/18 15:00 102 H 26 H 110/51 01/28/18 14:16 98.5 F 110 H 24 119/70 01/28/18 13:08 114 H 30 H 120/53 01/28/18 12:42 113 H 01/28/18 12:37 112 H 28 H 146/62 01/28/18 12:30 110 H 01/28/18 12:25 113 H 01/28/18 12:24 28 H 01/28/18 11:56 99.4 F 117 H 28 H 149/63 BP Pulse Ox 01/29/18 09:15 114/57 99 01/29/18 08:58 01/29/18 08:49 01/29/18 08:48 01/29/18 08:38 01/29/18 04:00 98 01/29/18 00:00 100 01/28/18 22:09 01/28/18 21:00 97 01/28/18 20:39 96 01/28/18 19:50 01/28/18 19:43 01/28/18 19:42 01/28/18 19:37 99 01/28/18 19:29 01/28/18 19:19 98 01/28/18 18:56 98 01/28/18 17:50 99 01/28/18 16:31 95 01/28/18 16:28 94 L 01/28/18 15:55 95 01/28/18 15:54 01/28/18 15:35 01/28/18 15:00 99 01/28/18 14:16 100 01/28/18 13:08 96 01/28/18 12:42 01/28/18 12:37 99 01/28/18 12:30 01/28/18 12:25 01/28/18 12:24 01/28/18 11:56 98 Intake and Output 01/28/18 01/29/18 01/29/18 22:59 06:59 14:59 Intake Total 217.843 90 Output Total 50 Balance 167.843 90 Intake: IV 40 40 0.9 40 40 Intake, IV Titration 177.843 50 Amount Heparin Sod,Pork in 0.45% 127.843 NaCl 25,000 unit In 0.45 % NaCl 1 500ml.bag @ 12 UNITS/KG/HR 14.47 mls/hr IV .Q24H COUNT INCLUDES THE [facility] Rx#: [id number] Piperacillin-Tazobactam 3 50 50 .375 gm In Dextrose/Water 1 50ml.bag @ 12.5 mls/hr IVPB Q8H COUNT INCLUDES THE [facility] Rx#: [id number] Output: Urine 50 Other: Voiding Method Diaper Diaper Weight 66 kg - Constitutional General appearance: no acute distress - Respiratory Respiratory: bilateral: rhonchi, wheezing - Cardiovascular Rhythm: regular Heart sounds: normal: S1, S2 Abnormal Heart Sounds: systolic murmur Results 01/29/18 03:35 01/29/18 03:35 Cardiac Enzymes 01/28/18 01/28/18 01/28/18 Range/Units 13:15 13:15 21:32 AST 35 (14-36) U/L CK-MB (CK-2) 2.3 (0.0-2.4) ng/mL Troponin I 0.196 H* 0.656 H* (0.000-0.034) ng/mL 01/29/18 Range/Units 03:35 AST (14-36) U/L CK-MB (CK-2) (0.0-2.4) ng/mL Troponin I 0.556 H* (0.000-0.034) ng/mL Coagulation 01/28/18 01/28/18 01/29/18 Range/Units 13:15 21:32 03:35 PT 10.2 (9.0-12.0) sec APTT 22.2 39.8 H 55.3 H (22.0-30.0) sec CBC 01/28/18 01/29/18 Range/Units 12:15 03:35 WBC 23.2 H 11.8 H (3.8-10.6) k/uL RBC 3.53 L 2.90 L (3.80-5.40) m/uL Hgb 10.6 L 9.0 L D (11.4-16.0) gm/dL Hct 33.3 L 27.3 L (34.0-46.0) % Plt Count 379 208 (150-450) k/uL Comprehensive Metabolic Panel 01/28/18 01/29/18 Range/Units 13:15 03:35 Sodium 144 143 (137-145) mmol/L Potassium 3.8 4.1 (3.5-5.1) mmol/L Chloride 100 101 (98-107) mmol/L Carbon Dioxide 32 H 27 (22-30) mmol/L BUN 41 H 48 H (7-17) mg/dL Creatinine 1.38 H 1.70 H (0.52-1.04) mg/dL Glucose 100 H 103 H (74-99) mg/dL Calcium 9.2 8.4 (8.4-10.2) mg/dL AST 35 (14-36) U/L ALT 29 (9-52) U/L Alkaline Phosphatase 96 (38-126) U/L Total Protein 5.7 L (6.3-8.2) g/dL Albumin 3.2 L (3.5-5.0) g/dL Current Medications Generic Name Dose Route Start Last Admin Trade Name Freq PRN Reason Stop Dose Admin Acetaminophen 650 mg 01/28/18 18:19 Tylenol Tab PO BID PRN Fever and/ or Pain Albuterol/Ipratropium 3 ml 01/28/18 20:00 01/29/18 08:36 Duoneb 0.5 Mg-3 Mg/3 Ml Soln INHALATION 3 ml RT-QID NARINDER Administration Allopurinol 100 mg 01/29/18 09:00 Zyloprim PO DAILY NARINDER Aspirin 81 mg 01/28/18 21:00 01/28/18 21:55 Aspirin PO 81 mg HS NARINDER Administration Budesonide 1 mg 01/28/18 20:00 01/29/18 08:37 Pulmicort INHALATION 1 mg RT-BID NARINDER Administration Formoterol Fumarate 20 mcg 01/28/18 20:00 01/29/18 08:36 Perforomist INHALATION 20 mcg RT-BID NARINDER Administration Heparin Sodium/Sodium Chloride 500 mls @ 14.47 mls/hr 01/28/18 14:45 22:17 25,000 unit/ Sodium Chloride IV 15 units/kg/hr .Q24H NARINDER 18.09 mls/hr Protocol Titration 12 UNITS/KG/HR Magnesium Sulfate/Dextrose 1 100 mls @ 100 mls/hr 01/29/18 07:00 01/29/18 07: 59 gm/ IV Solution IVPB 01/29/18 09:59 100 mls/hr Q1H NARINDER Administration Piperacillin/Tazobactam/ 50 mls @ 12.5 mls/hr 01/29/18 12:00 Dextrose 3.375 gm/ IV Solution IVPB Q12H NARINDER Isosorbide Mononitrate 30 mg 01/29/18 09:00 Imdur PO DAILY NARINDER Levofloxacin 500 mg 01/29/18 18:00 Levaquin PO Q48H NARINDER Levothyroxine Sodium 50 mcg 01/29/18 06:30 01/29/18 06:34 Synthroid PO 50 mcg DAILY@0630 NARINDER Administration Melatonin 1 mg 01/28/18 18:19 Melatonin PO HS PRN Insomnia Methylprednisolone Sodium Succinate 40 mg 01/28/18 21:00 01/28/18 21:55 Solu-Medrol IV 40 mg Q12HR NARINDER Administration Metoprolol Tartrate 25 mg 01/28/18 21:00 01/28/18 21:54 Lopressor PO 25 mg BID NARINDER Administration Miscellaneous Information 1 each 01/28/18 14:33 Pneumonia Protocol Utilized PO ONCE PRN Per Protocol Miscellaneous Information 1 each 01/29/18 06:47 Magnesium Per Protocol MISCELLANE DAILY PRN Per Protocol Protocol Nitroglycerin 0.4 mg 01/28/18 18:19 Nitrostat SUBLINGUAL Q5M PRN Chest Pain Pantoprazole Sodium 40 mg 01/29/18 07:30 01/29/18 06:35 Protonix PO 40 mg AC-BID NARINDER Administration Intake and Output 01/28/18 01/29/18 01/29/18 22:59 06:59 14:59 Intake Total 217.843 90 Output Total 50 Balance 167.843 90 Intake: IV 40 40 0.9 40 40 Intake, IV Titration 177.843 50 Amount Heparin Sod,Pork in 0.45% 127.843 NaCl 25,000 unit In 0.45 % NaCl 1 500ml.bag @ 12 UNITS/KG/HR 14.47 mls/hr IV .Q24H COUNT INCLUDES THE [facility] Rx#: [id number] Piperacillin-Tazobactam 3 50 50 .375 gm In Dextrose/Water 1 50ml.bag @ 12.5 mls/hr IVPB Q8H COUNT INCLUDES THE [facility] Rx#: [id number] Output: Urine 50 Other: Voiding Method Diaper Diaper Weight 66 kg 01/29/18 03:35 01/29/18 03:35 Assessment and Plan Assessment: Assessment #1 acute on chronic respiratory failure #2 COPD exacerbation #3 pneumonia #4 mildly abnormal cardiac enzymes in the absence of chest discomfort #5 known CAD with prior LAD stenting #6 multiple comorbid conditions Plan #1 continue the current medical treatment including heparin for additional 24 hours #2 continue the aspirin as well as #3 continue metoprolol #4 add statin to the current medical treatment #5 she underwent an echocardiogram recently and that revealed normal LV function #6 overall consider conservative medical approach for this frail 82-year-old lady. We'll continue following up with her I thank you for allowing us participate in her care
[2018-01-29] MEDS: ALLOPURINOL 100 MG TAB PO SCH (09:50)
[2018-01-29] MEDS: methylPREDNISolone SOD SUCCI 40 MG/ML 1 ML VIAL IV SCH ×2 (09:50→20:06)
[2018-01-29] MEDS: METOPROLOL TARTRATE 25 MG TAB PO SCH ×2 (09:51→20:06)
[2018-01-29 11:39] LABS: Glucose,Whole Blood 129 mg/dL (75-99)
--- NOTE | 2018-01-29 12:01 | CDI ---
Last Revision, September 2017 Documentation Clarification Form Date: 01/29/2018 11:54:00 AM From: Olimpia JonesPadronBHANU marcano, CCDS Admit Date: 01/28/2018 2:33:00 PM Patient Name: Muna Chau Visit Number: [id number] Discharge Date: ATTENTION: The Clinical Documentation Specialists (CDI) and [facility] Coding Staff appreciate your assistance in clarifying documentation. Please respond to the clarification below the line at the bottom and electronically sign. The CDI & [facility] Coding staff will review the response and follow-up if needed. Please note: Queries are made part of the Legal Health Record. If you have any questions, please contact the author of this message via ITS. Dr. Susan Diaz: Per the Cardiology consult: recent ECHO with normal LV function. Cardiology consulted for elevated BNP & elevated troponins. History/Risk Factors: CHF, COPD on home O2, Chronic hypoxic & hypercapnic respiratory failure, CAD w/stent to LAD. Clinical Indicators: Presented with SOB & increased swelling to legs. VS: T 99.4, P 117, R 28 (sob, labored, cough), BP 149/63, PO 98 15% vnm. BNP: 15,200. Echocardiogram Results: Recent ECHO w/normal LV function. Chest X Ray: Correlate for developing pneumonia, stable spiculated nodule [place]. Treatment: Albuterol INH, IV Lasix, IV Ativan, IV Robephin, IV Heparin, IV Levaquin, IV Zosyn, O2 Ventimask to 3-4 Lnc. Home Lasix 20 mg daily. In your professional opinion, can you please clarify if you are also treating the patient for CHF & specify the acuity & type if known: Systolic Heart Failure: o Acute o Chronic o Acute on Chronic Diastolic Heart Failure: o Acute o Chronic o Acute on Chronic Systolic & Diastolic Heart Failure: o Acute o Chronic o Acute on Chronic Heart Failure Unable to Determine Other, please specify Please continue to document in your progress notes and discharge summary in order to capture severity of illness and risk of mortality. Include clinical findings that support your diagnosis. MTDD
--- NOTE | 2018-01-29 12:15 | P.CNPUL ---
History of Present Illness Consult date: 01/29/18 Requesting physician: Susan Diaz Reason for consult: dyspnea, abnormal CXR/CT Chief complaint: Shortness of breath, cough, congestion History of present illness: This is a very pleasant 82-year-old female patient who follows with Dr. Charles as her primary care physician. She has a history of hypertension, hyperlipidemia, myocardial infarction, hypothyroidism, chronic renal failure, iron deficiency anemia. She also follows in our office with Dr. 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 Her FEV1 value is 35% of predicted. She was seen by him approximately one month ago and at that time had been fairly stable. The last few days however she has had increasing shortness of breath, cough and congestion. She's had mitchell productive sputum. Some chest tightness and wheezing. Chest x-ray revealed evidence of spiculated nodule in the left upper lobe and some suspected increased patchy density of the right upper lobe suspicious for pneumonia. There is also evidence of COPD. Also some pulmonary venous congestion. White count 11.8. Hemoglobin 9.0. Creatinine 1.70. ProBNP 15,200. Troponin 0.656, 0.196, 0.556. She did have a T-max of 99.4. Slightly tachycardic. Blood pressure stable. Maintaining O2 saturations in the high 90s on 3 L/m per nasal cannula. She is seen today in consultation on the selective care unit. She is currently awake and alert in no acute distress. She is dyspneic with minimal exertion. She has coughing and congested. She has been initiated on antibiotics in the form of Zosyn, bronchodilators, IV Solu-Medrol and she has been given IV Lasix. Review of Systems Eyes: bilateral decreased vision, denies blurred vision Ears: bilateral: decreased hearing Ears, nose, mouth and throat: Denies headache, Denies sore throat Cardiovascular: Reports decreased exercise tolerance, Reports dyspnea on exertion, Reports rapid heart beat, Reports shortness of breath Respiratory: Reports cough, Reports cough with sputum, Reports dyspnea, Reports home oxygen, Reports wheezing Gastrointestinal: Denies abdominal pain, Denies diarrhea, Denies nausea, Denies vomiting Genitourinary: Denies dysuria, Denies hematuria Musculoskeletal: Reports morning stiffness, Reports myalgias Musculoskeletal: bilateral: elbow swelling Integumentary: Denies pruritus, Denies rash Neurological: Reports weakness Psychiatric: Denies anxiety, Denies depression Endocrine: Denies fatigue, Denies weight change Past Medical History Past Medical History: Heart Failure, COPD, Hyperlipidemia, Hypertension, Myocardial Infarction ([place]), Pneumonia, Thyroid Disorder Additional Past Medical History / Comment(s): COPD-home 02 2.5 liters n/c atc , coronary artery disease with previous [place], hypothyroidism, hyperlipidemia, previous history of influenza infection, glaucoma ([place]), iron deficiency, chronic renal failure, hypertension Last Myocardial Infarction Date:: History of Any Multi-Drug Resistant Organisms: None Reported Past Surgical History: Cholecystectomy, Heart Catheterization, Heart Catheterization With Stent, Hysterectomy, Tonsillectomy Additional Past Surgical History / Comment(s): parathyroidectomy, bilateral cataract surgery, BLADDER suspension surgery, right inguinal hernia repair, left hand tendon repair. Past Anesthesia/Blood Transfusion Reactions: No Reported Reaction Date of Last Stent Placement:: 1999 Smoking Status: Former smoker - Past Family History Father Family Medical History: Myocardial Infarction ([place]) Additional Family Medical History / Comment(s): AT AGE 83 Mother Family Medical History: Congestive Heart Failure (CHF), Coronary Artery Disease (CAD), Renal Disease Additional Family Medical History / Comment(s): AT AGE 79 Medications and Allergies Home Medications Medication Instructions Recorded Confirmed Type Isosorbide Mononitrate ER [Imdur] 30 mg PO DAILY 03/07/14 01/28/18 History Atenolol [Tenormin] 50 mg PO BID tab 11/16/15 01/28/18 Rx Ipratropium-Albuterol Nebulize 3 ml INHALATION RT-QID #0 11/16/15 01/28/18 Rx [Duoneb 0.5 mg-3 mg/3 ml Soln] Aspirin EC [Ecotrin Low Dose] 81 mg PO HS 04/29/16 01/28/18 History Nitroglycerin Sl Tabs [Nitrostat] 0.4 mg SUBLINGUAL Q5M PRN 04/29/16 01/28/18 History Vit C/E/Zn/Coppr/Lutein/Zeaxan 1 cap PO BID 04/29/16 01/28/18 History [Preservision Areds 2 Softgel] Levothyroxine Sodium [Synthroid] 50 mcg PO DAILY 09/23/16 01/28/18 History Allopurinol [Zyloprim] 100 mg PO DAILY 12/09/17 01/28/18 History Calcium Carbonate [Calcium] 600 mg PO DAILY 12/09/17 01/28/18 History Latanoprost [Xalatan 0.005%] 1 drop BOTH EYES HS 12/09/17 01/28/18 History Acetaminophen Tab [Tylenol] 650 mg PO BID PRN tab 12/19/17 01/28/18 Rx Budesonide [Pulmicort] 1 mg INHALATION RT-BID nebu 12/19/17 01/28/18 Rx Furosemide [Lasix] 20 mg PO DAILY #1 tab 12/19/17 01/28/18 Rx Loperamide [Imodium] 2 mg PO QID PRN cap 12/19/17 01/28/18 Rx Levofloxacin [Levaquin] 500 mg PO DAILY 01/28/18 01/28/18 History Melatonin 1 mg PO HS PRN 01/28/18 01/28/18 History Morphine Sulfate [Morphine Sulfate 100 mg PO Q1H PRN 01/28/18 01/28/18 History Oral Solution] Omeprazole 20 mg PO DAILY 01/28/18 01/28/18 History Salmeterol Xinafoate [Serevent 1 puff INHALATION RT-BID 01/28/18 01/28/18 History Diskus] predniSONE 40 mg PO DAILY 01/28/18 01/28/18 History Allergies Allergy/AdvReac Type Severity Reaction Status Date / Time azithromycin [From Zithromax] Allergy Severe Dyspnea Verified 01/28/18 12:19 chocolate flavor Allergy Unknown Verified 01/28/18 12:19 codeine Allergy Dyspnea Verified 01/28/18 12:19 erythromycin base Allergy Dyspnea Verified 01/28/18 12:19 [Erythromycin Base] Physical Exam Vitals: Vital Signs Temp Pulse Pulse Pulse Resp BP BP 01/29/18 11:56 97.8 F 84 20 01/29/18 11:31 100 16 01/29/18 11:21 97 16 01/29/18 09:15 97.2 F L 86 28 H 01/29/18 08:58 100 16 01/29/18 08:49 101 H 16 01/29/18 08:48 100 16 01/29/18 08:38 101 H 16 01/29/18 04:00 97.4 F L 88 18 95/49 01/29/18 00:00 97.0 F L 93 18 108/51 01/28/18 22:09 85/49 01/28/18 21:00 98.7 F 100 18 84/49 01/28/18 20:39 95 20 103/49 01/28/18 19:50 104 H 01/28/18 19:43 101 H 01/28/18 19:42 101 H 01/28/18 19:37 102 H 17 119/53 01/28/18 19:29 94 01/28/18 19:19 26 H 01/28/18 18:56 98 24 96/51 01/28/18 17:50 97 26 H 104/51 01/28/18 16:31 01/28/18 16:28 104 H 26 H 120/55 01/28/18 15:55 106 H 26 H 110/87 01/28/18 15:54 118 H 01/28/18 15:35 122 H 01/28/18 15:00 102 H 26 H 110/51 01/28/18 14:16 98.5 F 110 H 24 119/70 01/28/18 13:08 114 H 30 H 120/53 01/28/18 12:42 113 H 01/28/18 12:37 112 H 28 H 146/62 01/28/18 12:30 110 H 01/28/18 12:25 113 H 01/28/18 12:24 28 H BP Pulse Ox 01/29/18 11:56 122/58 98 01/29/18 11:31 01/29/18 11:21 01/29/18 09:15 114/57 99 01/29/18 08:58 01/29/18 08:49 01/29/18 08:48 01/29/18 08:38 01/29/18 04:00 98 01/29/18 00:00 100 01/28/18 22:09 01/28/18 21:00 97 01/28/18 20:39 96 01/28/18 19:50 01/28/18 19:43 01/28/18 19:42 01/28/18 19:37 99 01/28/18 19:29 01/28/18 19:19 98 01/28/18 18:56 98 01/28/18 17:50 99 01/28/18 16:31 95 01/28/18 16:28 94 L 01/28/18 15:55 95 01/28/18 15:54 01/28/18 15:35 01/28/18 15:00 99 01/28/18 14:16 100 01/28/18 13:08 96 01/28/18 12:42 01/28/18 12:37 99 01/28/18 12:30 01/28/18 12:25 01/28/18 12:24 Intake and Output 01/28/18 01/29/18 01/29/18 22:59 06:59 14:59 Intake Total 217.843 90 100 Output Total 50 Balance 167.843 90 100 Intake: IV 40 40 0.9 40 40 Intake, IV Titration 177.843 50 Amount Heparin Sod,Pork in 0.45% 127.843 NaCl 25,000 unit In 0.45 % NaCl 1 500ml.bag @ 12 UNITS/KG/HR 14.47 mls/hr IV .Q24H [facility] Rx#: [id number] Piperacillin-Tazobactam 3 50 50 .375 gm In Dextrose/Water 1 50ml.bag @ 12.5 mls/hr IVPB Q8H [facility] Rx#: [id number] Oral 100 Output: Urine 50 Other: Voiding Method Diaper Diaper Bedpan Diaper Weight 66 kg GENERAL EXAM: Frail, cachectic. Alert, fairly comfortable in no apparent distress. HEAD: Normocephalic. EYES: Normal reaction of pupils, equal size. NOSE: Clear with pink turbinates. THROAT: No erythema or exudates. NECK: No masses, no JVD. CHEST: No chest wall deformity. LUNGS: Equal air entry with bilateral end expiratory wheeze, few scattered rhonchi, crackles in the posterior bases. Diminished. CVS: S1 and S2 normal with no audible murmur, regular rhythm. Tachycardic. ABDOMEN: No hepatosplenomegaly, normal bowel sounds, no guarding or rigidity. SPINE: Kyphoscoliosis SKIN: No rashes CENTRAL NERVOUS SYSTEM: No focal deficits, tone is normal in all 4 extremities. EXTREMITIES: There is trace peripheral edema. No clubbing, no cyanosis. Peripheral pulses are intact. Results - Laboratory Findings CBC and BMP: 01/29/18 03:35 01/29/18 03:35 PT/INR, D-dimer PT 10.2 sec (9.0-12.0) 01/28/18 13:15 INR 1.0 (<1.2) 01/28/18 13:15 Abnormal lab findings: Abnormal Labs 01/28/18 01/28/18 01/28/18 12:15 13:15 13:15 WBC 23.2 H RBC 3.53 L Hgb 10.6 L Hct 33.3 L RDW 16.4 H Neutrophils # 18.0 H Monocytes # 1.6 H APTT Carbon Dioxide 32 H BUN 41 H Creatinine 1.38 H Glucose 100 H POC Glucose (mg/dL) Magnesium 1.1 L Total Creatine Kinase 21 L Troponin I 0.196 H* Total Protein 5.7 L Albumin 3.2 L 01/28/18 01/28/18 01/29/18 21:32 21:32 03:35 WBC 11.8 H RBC 2.90 L Hgb 9.0 L D Hct 27.3 L RDW 16.2 H Neutrophils # Monocytes # APTT 39.8 H Carbon Dioxide BUN Creatinine Glucose POC Glucose (mg/dL) Magnesium Total Creatine Kinase Troponin I 0.656 H* Total Protein Albumin 01/29/18 01/29/18 01/29/18 03:35 03:35 03:35 WBC RBC Hgb Hct RDW Neutrophils # Monocytes # APTT 55.3 H Carbon Dioxide BUN 48 H Creatinine 1.70 H Glucose 103 H POC Glucose (mg/dL) Magnesium Total Creatine Kinase Troponin I 0.556 H* Total Protein Albumin 01/29/18 01/29/18 06:05 11:34 WBC RBC Hgb Hct RDW Neutrophils # Monocytes # APTT Carbon Dioxide BUN Creatinine Glucose POC Glucose (mg/dL) 115 H 129 H Magnesium Total Creatine Kinase Troponin I Total Protein Albumin - Diagnostic Findings Chest x-ray: image reviewed Assessment and Plan Assessment: Impression: #1 Acute on chronic hypoxic respiratory failure secondary to an acute exacerbation of chronic obstructive pulmonary disease and an acute exacerbation of diastolic congestive heart failure, cannot rule out underlying pneumonia. #2 Mild troponin leak. #3 History of coronary disease with previous stent placement. #4 Recent history of influenza B infection. #5 Acute on chronic renal failure. #6 Hypothyroidism. #7 Hypertension. #8 Hyperlipidemia. #9 Poor overall functional performance based on the above-mentioned multiple comorbidities. Plan: The patient was seen and evaluated by Dr. Tang. Her chest x-ray and labs were reviewed. We'll continue with her current pulmonary medications including DuoNeb inhalations daily ID and when necessary. Continue Pulmicort inhalations along with Perforomist twice a day. Continue with IV Solu-Medrol. Continue empiric antibiotics. Continue with diuretics. We will continue to follow and make further recommendations based on her clinical status. I, the cosigning physician, performed a history & physical examination of the patient. Lungs sounds have bilateral wheeze, few scattered rhonchi, crackles in the posterior bases.. Maintaining good O2 saturations in the 90s on 2 L/m per nasal cannula. I discussed the assessment and plan of care with my nurse practitioner, Kelly Merchant. I attest to the above note as dictated by her. Time with Patient: Greater than 30
[2018-01-29] MEDS: ATORVASTATIN 40 MG TAB PO SCH (12:17)
[2018-01-29] MEDS: ISOSORBIDE MONONITRATE ER 30 MG TAB.ER.24H PO SCH (12:17)
--- NOTE | 2018-01-29 13:04 | XR ---
EXAMINATION TYPE: XR chest 2V DATE OF EXAM: 01/29/2018 COMPARISON: Chest x-ray from yesterday and older studies HISTORY: Pneumonia progress study. TECHNIQUE: Frontal and lateral views of the chest are obtained. FINDINGS: There is background chronic emphysematous change redemonstrated there are worsening small right greater than left pleural effusions and associated bibasilar atelectasis. There is increasing r ight upper lung opacity. The cardiac silhouette size is upper limits of normal on current study with atherosclerotic thoracic aorta. The osseous structures are intact. IMPRESSION: Chronic emphysematous change with new small right greater than left pleural effusions an d associated right basilar atelectasis and worsening right upper lobe nodular infiltrate. Continued p rogress study advised.
--- NOTE | 2018-01-29 14:08 | P.PN ---
Subjective 79-year-old female admitted with hypoxic respiratory failure most mostly secondary to pneumonia COPD exacerbation. Patient looks much better today patient is on oxygen 5 L. Patient didn't have any more emesis at this time. Constitutional: Denied any fatigue denied any fever. Cardio vascular: denied any chest pain, palpitations Gastrointestinal denied any nausea vomiting Pulmonary: Continues to have shortness of breath significantly improved Neurologic denied any new focal deficits Objective - Vital Signs Vital signs: Vital Signs Temp 97.8 F 01/29/18 11:56 Pulse 84 01/29/18 11:56 Resp 20 01/29/18 11:56 BP 122/58 01/29/18 11:56 Pulse Ox 98 01/29/18 11:56 Intake & Output 01/28/18 01/29/18 01/29/18 18:59 06:59 18:59 Intake Total 307.843 954 Output Total 50 Balance -50 307.843 954 Weight 60.328 kg 66 kg 66 kg Intake: IV 80 160 0.9 80 160 Intake, IV Titration 227.843 494 Amount Heparin Sod,Pork in 0.45% 127.843 NaCl 25,000 unit In 0.45 % NaCl 1 500ml.bag @ 12 UNITS/KG/HR 14.47 mls/hr IV .Q24H [facility] Rx#: [id number] Levofloxacin 750Mg-D5w 144 Pmx 750 mg In Dextrose/ Water 1 150ml.bag @ 100 mls/hr IVPB ONCE [facility] Rx#: [id number] Magnesium Sulfate-D5w Pmx 300 1 gm In Dextrose/Water 1 100ml.bag @ 100 mls/hr IVPB Q1H [facility] Rx#: [id number] Piperacillin-Tazobactam 3 50 .375 gm In Dextrose/Water 1 50ml.bag @ 12.5 mls/hr IVPB Q12H [facility] Rx#: [id number] Piperacillin-Tazobactam 3 100 .375 gm In Dextrose/Water 1 50ml.bag @ 12.5 mls/hr IVPB Q8H [facility] Rx#: [id number] Oral 300 Output: Urine 50 Other: Voiding Method Diaper Bedpan Diaper - Exam PHYSICAL EXAMINATION: GENERAL: The patient is alert and oriented x3, Thin built improved respiratory distress HEENT: Pupils are round and equally reacting to light. EOMI. No scleral icterus. No conjunctival pallor. Normocephalic, atraumatic. No pharyngeal erythema. No thyromegaly. CARDIOVASCULAR: S1 and S2 present. No murmurs, rubs, or gallops. PULMONARY: Significantly decreased air entry into bilateral lung campbell significant expiratory wheezing was appreciated mildly his crackles were appreciated as well. ABDOMEN: Soft, nontender, nondistended, normoactive bowel sounds. No palpable organomegaly. MUSCULOSKELETAL: No joint swelling or deformity. EXTREMITIES: No cyanosis, clubbing, or pedal edema. NEUROLOGICAL: Gross neurological examination did not reveal any focal deficits. SKIN: No rashes. - Labs CBC & Chem 7: 01/29/18 03:35 01/29/18 03:35 Labs: Abnormal Lab Results - Last 24 Hours (Table) 01/28/18 01/28/18 01/28/18 Range/Units 13:15 13:15 21:32 WBC (3.8-10.6) k/uL RBC (3.80-5.40) m/uL Hgb (11.4-16.0) gm/dL Hct (34.0-46.0) % RDW (11.5-15.5) % APTT (22.0-30.0) sec Carbon Dioxide 32 H (22-30) mmol/L BUN 41 H (7-17) mg/dL Creatinine 1.38 H (0.52-1.04) mg/dL Glucose 100 H (74-99) mg/dL POC Glucose (mg/dL) (75-99) mg/dL Magnesium 1.1 L (1.6-2.3) mg/dL Troponin I 0.196 H* 0.656 H* (0.000-0.034) ng/mL Total Protein 5.7 L (6.3-8.2) g/dL Albumin 3.2 L (3.5-5.0) g/dL 01/28/18 01/29/18 01/29/18 Range/Units 21:32 03:35 03:35 WBC 11.8 H (3.8-10.6) k/uL RBC 2.90 L (3.80-5.40) m/uL Hgb 9.0 L D (11.4-16.0) gm/dL Hct 27.3 L (34.0-46.0) % RDW 16.2 H (11.5-15.5) % APTT 39.8 H (22.0-30.0) sec Carbon Dioxide (22-30) mmol/L BUN 48 H (7-17) mg/dL Creatinine 1.70 H (0.52-1.04) mg/dL Glucose 103 H (74-99) mg/dL POC Glucose (mg/dL) (75-99) mg/dL Magnesium (1.6-2.3) mg/dL Troponin I (0.000-0.034) ng/mL Total Protein (6.3-8.2) g/dL Albumin (3.5-5.0) g/dL 01/29/18 01/29/18 01/29/18 Range/Units 03:35 03:35 03:35 WBC (3.8-10.6) k/uL RBC (3.80-5.40) m/uL Hgb (11.4-16.0) gm/dL Hct (34.0-46.0) % RDW (11.5-15.5) % APTT 55.3 H (22.0-30.0) sec Carbon Dioxide (22-30) mmol/L BUN (7-17) mg/dL Creatinine (0.52-1.04) mg/dL Glucose (74-99) mg/dL POC Glucose (mg/dL) (75-99) mg/dL Magnesium 1.1 L (1.6-2.3) mg/dL Troponin I 0.556 H* (0.000-0.034) ng/mL Total Protein (6.3-8.2) g/dL Albumin (3.5-5.0) g/dL 01/29/18 01/29/18 Range/Units 06:05 11:34 WBC (3.8-10.6) k/uL RBC (3.80-5.40) m/uL Hgb (11.4-16.0) gm/dL Hct (34.0-46.0) % RDW (11.5-15.5) % APTT (22.0-30.0) sec Carbon Dioxide (22-30) mmol/L BUN (7-17) mg/dL Creatinine (0.52-1.04) mg/dL Glucose (74-99) mg/dL POC Glucose (mg/dL) 115 H 129 H (75-99) mg/dL Magnesium (1.6-2.3) mg/dL Troponin I (0.000-0.034) ng/mL Total Protein (6.3-8.2) g/dL Albumin (3.5-5.0) g/dL Assessment and Plan Plan: -Acute on chronic hypercapnic respiratory failure as well as acute hypoxic respiratory failure: Secondary to possible COPD exacerbation and early SIRS of right upper lobe pneumonia respectively. Patient was started on Rocephin and azithromycin, systemic steroids inhalational treatments. -Chronic hypercapnic respiratory failure secondary to COPD uses 2.3 L of oxygen -Hyperlipidemia -Elevated troponin secondary to hypoxemia and sepsis. 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 Patient tachycardia is secondary to hypoxemia
[2018-01-29 16:53] LABS: Glucose,Whole Blood 110 mg/dL (75-99)
[2018-01-29] MEDS: HEPARIN SOD,PORK IN 0.45% NACL 25,000 UNIT in 0.45% NACL 1 500ML.BAG IV SCH (17:11)
[2018-01-29] MEDS ORDERED: LEVOFLOXACIN 500 MG TAB PO SCH (18:00)
[2018-01-29] MEDS ORDERED: LEVOFLOXACIN 750 MG TAB PO SCH (18:00)
[2018-01-29] MEDS: VIT A,C & E-LUTEIN-MINERALS 1 EACH TAB PO SCH (20:06)
[2018-01-29] MEDS: ASPIRIN 81 MG PO SCH (20:06)
[2018-01-29 20:43] LABS: Glucose,Whole Blood 141 mg/dL (75-99)
[2018-01-29] MEDS: LATANOPROST 0.005% OPHTH DROPS 2.5 ML BTL BOTH EYES SCH (22:55)
[2018-01-30 00:38] LABS: Magnesium 2.4 mg/dL (1.6-2.3); Potassium 3.5 mmol/L (3.5-5.1)
[2018-01-30 05:40] LABS: Glucose,Whole Blood 139 mg/dL (75-99)
[2018-01-30 05:54] LABS: HCT 27.7 % (34.0-46.0); HGB 8.4 gm/dL (11.4-16.0); Hypochromasia Moderate; MCH 29.2 pg (25.0-35.0); MCHC 30.3 g/dL (31.0-37.0); MCV 96.3 fL (80.0-100.0); Mean Platelet Volume 7.9; Platelet Count 224 k/uL (150-450); RBC 2.87 m/uL (3.80-5.40); WBC 12.1 k/uL (3.8-10.6)
[2018-01-30 06:14] LABS: Calcium 8.5 mg/dL (8.4-10.2); Magnesium 2.4 mg/dL (1.6-2.3); Potassium 3.7 mmol/L (3.5-5.1)
[2018-01-30] MEDS: PANTOPRAZOLE 40 MG TABLET PO SCH ×2 (06:50→17:41)
[2018-01-30] MEDS: LEVOTHYROXINE 50 MCG TAB PO SCH (06:50)
--- NOTE | 2018-01-30 08:24 | P.PN ---
Subjective Progress Note Date: 01/30/18 Principal diagnosis: Acute respiratory failure This is a pleasant 82-year-old female patient who sees Dr. VC Thornton in the office as an outpatient with a past medical history significant for coronary artery disease and prior LAD stenting, hypertension, dyslipidemia, COPD , who resides currently at extended care facility was brought to the hospital because of shortness of breath. The patient just was not feeling well for the last couple of days. She was more short of breath and more importantly she was coughing extensively with sputum production. No fever and no chills. She was also wheezing. The patient does have chronic respiratory failure and she is on oxygen. She was admitted to the hospital with acute on chronic respiratory failure. We get involved in her care because of mildly abnormal cardiac enzymes. The patient did not have any symptoms of chest pain or chest discomfort. The EKG did not show any significant ST or T-wave abnormalities concerning for ischemia. On follow-up with the patient today, she is feeling slightly better in term of shortness of breath. I'll follow-up with the patient today, she is feeling slightly better in term of shortness of breath but she continues to have cough. On physical examination she continues to have bilateral expiratory wheezing as well as crackles and also does have bilateral lower extremities edema. I am going to add a small dose of Lasix IV to the current medical treatment and monitor the kidney function. She does have chronic kidney disease and her creatinine today is 1.7. Objective - Vital Signs Vital signs: Vital Signs Temp 97.5 F L 01/30/18 08:00 Pulse 83 01/30/18 08:00 Resp 18 01/30/18 08:00 BP 115/54 01/30/18 08:00 Pulse Ox 100 01/30/18 08:00 Intake & Output 01/29/18 01/30/18 01/30/18 18:59 06:59 18:59 Intake Total 9948.987 7984.979 236 Balance 9752.304 4409.979 236 Weight 66 kg 64 kg Intake: IV 160 560 0.9 160 320 Heparin Sod,Pork in 0.45% 240 NaCl 25,000 unit In 0.45 % NaCl 1 500ml.bag @ 12 UNITS/KG/HR 14.47 mls/hr IV .Q24H [facility] Rx#: [id number] Intake, IV Titration 835.901 286.979 Amount Heparin Sod,Pork in 0.45% 341.901 236.979 NaCl 25,000 unit In 0.45 % NaCl 1 500ml.bag @ 12 UNITS/KG/HR 14.47 mls/hr IV .Q24H COUNT INCLUDES [facility] Rx#: [id number] Levofloxacin 750Mg-D5w 144 Pmx 750 mg In Dextrose/ Water 1 150ml.bag @ 100 mls/hr IVPB ONCE [facility] Rx#: [id number] Magnesium Sulfate-D5w Pmx 300 1 gm In Dextrose/Water 1 100ml.bag @ 100 mls/hr IVPB Q1H COUNT INCLUDES THE [facility] Rx#: [id number] Piperacillin-Tazobactam 3 50 50 .375 gm In Dextrose/Water 1 50ml.bag @ 12.5 mls/hr IVPB Q12H COUNT INCLUDES THE [facility] Rx#: [id number] Oral 536 200 236 Other: Voiding Method Bedpan Bedpan Diaper Diaper # Voids 1 - Constitutional General appearance: Present: no acute distress - Respiratory Respiratory: bilateral: rhonchi, wheezing - Cardiovascular Rhythm: regular Heart sounds: normal: S1, S2 - Labs CBC & Chem 7: 01/30/18 05:39 01/30/18 05:39 Labs: Abnormal Lab Results - Last 24 Hours (Table) 01/29/18 01/29/18 01/29/18 Range/Units 03:35 11:34 16:51 WBC (3.8-10.6) k/uL RBC (3.80-5.40) m/uL Hgb (11.4-16.0) gm/dL Hct (34.0-46.0) % MCHC (31.0-37.0) g/dL RDW (11.5-15.5) % APTT (22.0-30.0) sec BUN (7-17) mg/dL Creatinine (0.52-1.04) mg/dL Glucose (74-99) mg/dL POC Glucose (mg/dL) 129 H 110 H (75-99) mg/dL Magnesium 1.1 L (1.6-2.3) mg/dL 01/29/18 01/29/18 01/30/18 Range/Units 20:42 23:55 05:39 WBC (3.8-10.6) k/uL RBC (3.80-5.40) m/uL Hgb (11.4-16.0) gm/dL Hct (34.0-46.0) % MCHC (31.0-37.0) g/dL RDW (11.5-15.5) % APTT 65.8 H (22.0-30.0) sec BUN (7-17) mg/dL Creatinine (0.52-1.04) mg/dL Glucose (74-99) mg/dL POC Glucose (mg/dL) 141 H (75-99) mg/dL Magnesium 2.4 H (1.6-2.3) mg/dL 01/30/18 01/30/18 01/30/18 Range/Units 05:39 05:39 05:39 WBC 12.1 H (3.8-10.6) k/uL RBC 2.87 L (3.80-5.40) m/uL Hgb 8.4 L (11.4-16.0) gm/dL Hct 27.7 L (34.0-46.0) % MCHC 30.3 L (31.0-37.0) g/dL RDW 16.0 H (11.5-15.5) % APTT (22.0-30.0) sec BUN 50 H (7-17) mg/dL Creatinine 1.70 H (0.52-1.04) mg/dL Glucose 121 H (74-99) mg/dL POC Glucose (mg/dL) 139 H (75-99) mg/dL Magnesium 2.4 H (1.6-2.3) mg/dL Microbiology - Last 24 Hours (Table) 01/28/18 08:57 Gram Stain - Preliminary Sputum 01/28/18 12:25 Blood Culture - Preliminary Blood No Growth after 24 hours Assessment and Plan Assessment: Assessment #1 acute on chronic respiratory failure #2 COPD exacerbation #3 pneumonia #4 mildly abnormal cardiac enzymes in the absence of chest discomfort #5 known CAD with prior LAD stenting #6 multiple comorbid conditions Plan #1 continue the current medical treatment with aspirin, statin, and metoprolol #2 add Lasix IV to the current medical treatment #3 DC the heparin #4 follow-up with the patient. We'll continue following up with her I thank you for allowing us participate in her care
[2018-01-30] MEDS: IPRATROPIUM-ALBUTEROL 3 ML NEB INHALATION SCH ×4 (08:41→19:29)
[2018-01-30] MEDS: FORMOTEROL FUMARATE 20 MCG/2 ML NEBU INHALATION SCH ×2 (08:41→19:57)
[2018-01-30] MEDS: BUDESONIDE 1 MG/2 ML NEBU INHALATION SCH ×2 (08:41→19:57)
[2018-01-30] MEDS: ALLOPURINOL 100 MG TAB PO SCH (09:52)
[2018-01-30] MEDS: ISOSORBIDE MONONITRATE ER 30 MG TAB.ER.24H PO SCH (09:54)
[2018-01-30] MEDS: ATORVASTATIN 40 MG TAB PO SCH (09:54)
[2018-01-30] MEDS: VIT A,C & E-LUTEIN-MINERALS 1 EACH TAB PO SCH ×2 (09:55→20:54)
[2018-01-30] MEDS: methylPREDNISolone SOD SUCCI 40 MG/ML 1 ML VIAL IV SCH ×2 (10:50→21:34)
[2018-01-30] MEDS: FUROSEMIDE 10 MG/ML 2 ML VIAL IV SCH ×2 (10:50→21:34)
[2018-01-30 11:38] LABS: Glucose,Whole Blood 119 mg/dL (75-99)
[2018-01-30] MEDS: PIPERACILLIN-TAZOBACTAM 3.375 GM in DEXTROSE/WATER 1 50ML.BAG IVPB SCH ×2 (11:39→23:11)
[2018-01-30] MEDS: METOPROLOL TARTRATE 25 MG TAB PO SCH ×2 (11:40→20:53)
--- NOTE | 2018-01-30 13:17 | P.PN ---
Subjective 79-year-old female admitted with hypoxic respiratory failure most mostly secondary to pneumonia COPD exacerbation. Patient looks much better today patient is on oxygen 5 L. Patient didn't have any more emesis at this time. 02/07/2018 Patient overall had clinical improvement competitors yesterday patient is clinically looking better Constitutional: Denied any fatigue denied any fever. Cardio vascular: denied any chest pain, palpitations Gastrointestinal denied any nausea vomiting Pulmonary: Continues to have shortness of breath significantly improved Neurologic denied any new focal deficits Objective - Vital Signs Vital signs: Vital Signs Temp 97.6 F 01/30/18 10:33 Pulse 89 01/30/18 11:53 Resp 14 01/30/18 10:33 BP 101/62 01/30/18 10:33 Pulse Ox 96 01/30/18 10:33 Intake & Output 01/29/18 01/30/18 01/30/18 18:59 06:59 18:59 Intake Total 5087.554 5304.979 266 Balance 0982.593 1904.979 266 Weight 66 kg 64 kg Intake: IV 160 560 30 0.9 160 320 30 Heparin Sod,Pork in 0.45% 240 NaCl 25,000 unit In 0.45 % NaCl 1 500ml.bag @ 12 UNITS/KG/HR 14.47 mls/hr IV .Q24H [facility] Rx#: [id number] Intake, IV Titration 835.901 286.979 Amount Heparin Sod,Pork in 0.45% 341.901 236.979 NaCl 25,000 unit In 0.45 % NaCl 1 500ml.bag @ 12 UNITS/KG/HR 14.47 mls/hr IV .Q24H [facility] Rx#: [id number] Levofloxacin 750Mg-D5w 144 Pmx 750 mg In Dextrose/ Water 1 150ml.bag @ 100 mls/hr IVPB ONCE STA Rx#: [id number] Magnesium Sulfate-D5w Pmx 300 1 gm In Dextrose/Water 1 100ml.bag @ 100 mls/hr IVPB Q1H [facility] Rx#: [id number] Piperacillin-Tazobactam 3 50 50 .375 gm In Dextrose/Water 1 50ml.bag @ 12.5 mls/hr IVPB Q12H [facility] Rx#: [id number] Oral 536 200 236 Other: Voiding Method Bedpan Bedpan Bedpan Diaper Diaper Diaper # Voids 1 - Exam PHYSICAL EXAMINATION: GENERAL: The patient is alert and oriented x3, Thin built improved respiratory distress HEENT: Pupils are round and equally reacting to light. EOMI. No scleral icterus. No conjunctival pallor. Normocephalic, atraumatic. No pharyngeal erythema. No thyromegaly. CARDIOVASCULAR: S1 and S2 present. No murmurs, rubs, or gallops. PULMONARY: Significantly decreased air entry into bilateral lung campbell significant expiratory wheezing was appreciated mildly his crackles were appreciated as well. ABDOMEN: Soft, nontender, nondistended, normoactive bowel sounds. No palpable organomegaly. MUSCULOSKELETAL: No joint swelling or deformity. EXTREMITIES: No cyanosis, clubbing, or pedal edema. NEUROLOGICAL: Gross neurological examination did not reveal any focal deficits. SKIN: No rashes. - Labs CBC & Chem 7: 01/30/18 05:39 01/30/18 05:39 Labs: Abnormal Lab Results - Last 24 Hours (Table) 01/29/18 01/29/18 01/29/18 Range/Units 16:51 20:42 23:55 WBC (3.8-10.6) k/uL RBC (3.80-5.40) m/uL Hgb (11.4-16.0) gm/dL Hct (34.0-46.0) % MCHC (31.0-37.0) g/dL RDW (11.5-15.5) % APTT (22.0-30.0) sec BUN (7-17) mg/dL Creatinine (0.52-1.04) mg/dL Glucose (74-99) mg/dL POC Glucose (mg/dL) 110 H 141 H (75-99) mg/dL Magnesium 2.4 H (1.6-2.3) mg/dL 01/30/18 01/30/18 01/30/18 Range/Units 05:39 05:39 05:39 WBC 12.1 H (3.8-10.6) k/uL RBC 2.87 L (3.80-5.40) m/uL Hgb 8.4 L (11.4-16.0) gm/dL Hct 27.7 L (34.0-46.0) % MCHC 30.3 L (31.0-37.0) g/dL RDW 16.0 H (11.5-15.5) % APTT 65.8 H (22.0-30.0) sec BUN 50 H (7-17) mg/dL Creatinine 1.70 H (0.52-1.04) mg/dL Glucose 121 H (74-99) mg/dL POC Glucose (mg/dL) (75-99) mg/dL Magnesium 2.4 H (1.6-2.3) mg/dL 01/30/18 01/30/18 Range/Units 05:39 11:35 WBC (3.8-10.6) k/uL RBC (3.80-5.40) m/uL Hgb (11.4-16.0) gm/dL Hct (34.0-46.0) % MCHC (31.0-37.0) g/dL RDW (11.5-15.5) % APTT (22.0-30.0) sec BUN (7-17) mg/dL Creatinine (0.52-1.04) mg/dL Glucose (74-99) mg/dL POC Glucose (mg/dL) 139 H 119 H (75-99) mg/dL Magnesium (1.6-2.3) mg/dL Microbiology - Last 24 Hours (Table) 01/28/18 08:57 Gram Stain - Preliminary Sputum 01/28/18 12:25 Blood Culture - Preliminary Blood No Growth after 24 hours Assessment and Plan Plan: -Acute on chronic hypercapnic respiratory failure as well as acute hypoxic respiratory failure: Secondary to possible COPD exacerbation and early SIRS of right upper lobe pneumonia respectively. Patient was started on Rocephin and azithromycin, systemic steroids inhalational treatments. Patient was started on low-dose of Lasix by cardiology which will be continued had creatinine remained stable at 1.7 -Chronic hypercapnic respiratory failure secondary to COPD uses 2.5 L of oxygen -Hyperlipidemia -Elevated troponin secondary to hypoxemia and sepsis. 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
--- NOTE | 2018-01-30 15:53 | P.PN ---
Subjective Progress Note Date: 01/30/18 Principal diagnosis: Acute on chronic hypoxic respiratory failure secondary to an acute exacerbation of chronic obstructive pulmonary disease and an acute exacerbation of diastolic congestive heart failure, cannot rule out underlying pneumonia This is a very pleasant 82-year-old female patient who follows with Dr. Charles as her primary care physician. She has a history of hypertension, hyperlipidemia, myocardial infarction, hypothyroidism, chronic renal failure, iron deficiency anemia. She also follows in our office with Dr. 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 Her FEV1 value is 35% of predicted. She was seen by him approximately one month ago and at that time had been fairly stable. The last few days however she has had increasing shortness of breath, cough and congestion. She's had mitchell productive sputum. Some chest tightness and wheezing. Chest x-ray revealed evidence of spiculated nodule in the left upper lobe and some suspected increased patchy density of the right upper lobe suspicious for pneumonia. There is also evidence of COPD. Also some pulmonary venous congestion. White count 11.8. Hemoglobin 9.0. Creatinine 1.70. ProBNP 15,200. Troponin 0.656, 0.196, 0.556. She did have a T-max of 99.4. Slightly tachycardic. Blood pressure stable. Maintaining O2 saturations in the high 90s on 3 L/m per nasal cannula. She is seen today in consultation on the selective care unit. She is currently awake and alert in no acute distress. She is dyspneic with minimal exertion. She has coughing and congested. She has been initiated on antibiotics in the form of Zosyn, bronchodilators, IV Solu-Medrol and she has been given IV Lasix. On 01/30/2018 patient seen in follow-up. She is sitting up in the chair, eating lunch. She denies acute distress, lung sounds are positive for diffuse wheezes and rhonchi. She is being diuresed with IV Lasix at 20 mg every 12 hours, she is on empiric antibiotics in the form of Zosyn. Sputum blood culture results are pending at this time, patient is afebrile. Denies any fever or chills, she is currently on 3 L per nasal cannula O2 sat 96%. No tachycardia today, blood pressure is stable. She remains on IV Solu-Medrol, and bronchodilators. We'll continue current treatment. Patient is negative 2 kilos since admission. Objective - Vital Signs Vital signs: Vital Signs Temp 97.6 F 01/30/18 10:33 Pulse 92 01/30/18 15:34 Resp 18 01/30/18 12:00 BP 101/62 01/30/18 10:33 Pulse Ox 96 01/30/18 10:33 Intake & Output 01/29/18 01/30/18 01/30/18 18:59 06:59 18:59 Intake Total 6477.210 4395.979 506 Balance 8161.543 7214.979 506 Weight 66 kg 64 kg Intake: IV 160 560 30 0.9 160 320 30 Heparin Sod,Pork in 0.45% 240 NaCl 25,000 unit In 0.45 % NaCl 1 500ml.bag @ 12 UNITS/KG/HR 14.47 mls/hr IV .Q24H [facility] Rx#: [id number] Intake, IV Titration 835.901 286.979 Amount Heparin Sod,Pork in 0.45% 341.901 236.979 NaCl 25,000 unit In 0.45 % NaCl 1 500ml.bag @ 12 UNITS/KG/HR 14.47 mls/hr IV .Q24H [facility] Rx#: [id number] Levofloxacin 750Mg-D5w 144 Pmx 750 mg In Dextrose/ Water 1 150ml.bag @ 100 mls/hr IVPB ONCE STA Rx#: [id number] Magnesium Sulfate-D5w Pmx 300 1 gm In Dextrose/Water 1 100ml.bag @ 100 mls/hr IVPB Q1H [facility] Rx#: [id number] Piperacillin-Tazobactam 3 50 50 .375 gm In Dextrose/Water 1 50ml.bag @ 12.5 mls/hr IVPB Q12H [facility] Rx#: [id number] Oral 536 200 476 Other: Voiding Method Bedpan Bedpan Bedpan Diaper Diaper Diaper # Voids 1 - Exam GENERAL EXAM: Frail, cachectic. Alert, fairly comfortable in no apparent distress. HEAD: Normocephalic. EYES: Normal reaction of pupils, equal size. NOSE: Clear with pink turbinates. THROAT: No erythema or exudates. NECK: No masses, no JVD. CHEST: No chest wall deformity. LUNGS: Equal air entry with bilateral expiratory wheeze, few scattered rhonchi, crackles in the posterior bases. Diminished. CVS: S1 and S2 normal with no audible murmur, regular rhythm. Tachycardic. ABDOMEN: No hepatosplenomegaly, normal bowel sounds, no guarding or rigidity. SPINE: Kyphoscoliosis SKIN: No rashes CENTRAL NERVOUS SYSTEM: No focal deficits, tone is normal in all 4 extremities. EXTREMITIES: There is trace peripheral edema. No clubbing, no cyanosis. Peripheral pulses are intact. - Labs CBC & Chem 7: 01/30/18 05:39 01/30/18 05:39 Labs: Abnormal Lab Results - Last 24 Hours (Table) 01/29/18 01/29/18 01/29/18 Range/Units 16:51 20:42 23:55 WBC (3.8-10.6) k/uL RBC (3.80-5.40) m/uL Hgb (11.4-16.0) gm/dL Hct (34.0-46.0) % MCHC (31.0-37.0) g/dL RDW (11.5-15.5) % APTT (22.0-30.0) sec BUN (7-17) mg/dL Creatinine (0.52-1.04) mg/dL Glucose (74-99) mg/dL POC Glucose (mg/dL) 110 H 141 H (75-99) mg/dL Magnesium 2.4 H (1.6-2.3) mg/dL 01/30/18 01/30/18 01/30/18 Range/Units 05:39 05:39 05:39 WBC 12.1 H (3.8-10.6) k/uL RBC 2.87 L (3.80-5.40) m/uL Hgb 8.4 L (11.4-16.0) gm/dL Hct 27.7 L (34.0-46.0) % MCHC 30.3 L (31.0-37.0) g/dL RDW 16.0 H (11.5-15.5) % APTT 65.8 H (22.0-30.0) sec BUN 50 H (7-17) mg/dL Creatinine 1.70 H (0.52-1.04) mg/dL Glucose 121 H (74-99) mg/dL POC Glucose (mg/dL) (75-99) mg/dL Magnesium 2.4 H (1.6-2.3) mg/dL 01/30/18 01/30/18 Range/Units 05:39 11:35 WBC (3.8-10.6) k/uL RBC (3.80-5.40) m/uL Hgb (11.4-16.0) gm/dL Hct (34.0-46.0) % MCHC (31.0-37.0) g/dL RDW (11.5-15.5) % APTT (22.0-30.0) sec BUN (7-17) mg/dL Creatinine (0.52-1.04) mg/dL Glucose (74-99) mg/dL POC Glucose (mg/dL) 139 H 119 H (75-99) mg/dL Magnesium (1.6-2.3) mg/dL Microbiology - Last 24 Hours (Table) 01/28/18 12:25 Blood Culture - Preliminary Blood No Growth after 48 hours 01/28/18 08:57 Gram Stain - Preliminary Sputum Assessment and Plan Plan: Assessment: #1 Acute on chronic hypoxic respiratory failure secondary to an acute exacerbation of chronic obstructive pulmonary disease and an acute exacerbation of diastolic congestive heart failure, cannot rule out underlying pneumonia. #2 Mild troponin leak. #3 History of coronary disease with previous stent placement. #4 Recent history of influenza B infection. #5 Acute on chronic renal failure. #6 Hypothyroidism. #7 Hypertension. #8 Hyperlipidemia. #9 Poor overall functional performance based on the above-mentioned multiple comorbidities. Plan: Continue diuresis per cardiology recommendations, continue bronchodilators, continue Zosyn, IV Solu-Medrol. Patient still has some diffuse wheezing, and chest congestion bilaterally. She is being treated for a combination of an acute COPD exacerbation as well as acute exacerbation of diastolic heart failure. Accurate intake and output, daily weights, we'll continue to monitor, monitor vital signs, fever pattern, and labs. I performed a history & physical examination of the patient and discussed their management with my nurse practitioner, Eva Watson. I reviewed the nurse practitioner's note and agree with the documented findings and plan of care. Lung sounds are positive for diffuse wheezes, coarse rhonchi. The findings and the impression was discussed with the patient. I attest to the documentation by the nurse practitioner. Time with Patient: Less than 30
[2018-01-30 16:45] LABS: Glucose,Whole Blood 138 mg/dL (75-99)
[2018-01-30] MEDS: ASPIRIN 81 MG PO SCH (20:53)
[2018-01-30] MEDS: LATANOPROST 0.005% OPHTH DROPS 2.5 ML BTL BOTH EYES SCH (20:53)
[2018-01-30 20:54] LABS: Glucose,Whole Blood 132 mg/dL (75-99)
[2018-01-31 06:10] LABS: Glucose,Whole Blood 150 mg/dL (75-99)
[2018-01-31] MEDS: IPRATROPIUM-ALBUTEROL 3 ML NEB INHALATION SCH ×4 (06:21→20:16)
[2018-01-31] MEDS: PANTOPRAZOLE 40 MG TABLET PO SCH ×2 (06:46→17:20)
[2018-01-31] MEDS: LEVOTHYROXINE 50 MCG TAB PO SCH (06:46)
[2018-01-31 06:51] LABS: Calcium 7.8 mg/dL (8.4-10.2); Magnesium 2.2 mg/dL (1.6-2.3); Potassium 3.9 mmol/L (3.5-5.1)
[2018-01-31 06:58] LABS: Anisocytosis Slight; HCT 24.3 % (34.0-46.0); HGB 8.1 gm/dL (11.4-16.0); MCH 30.4 pg (25.0-35.0); MCHC 33.2 g/dL (31.0-37.0); MCV 91.5 fL (80.0-100.0); Mean Platelet Volume 7.9; Platelet Count 187 k/uL (150-450); RBC 2.66 m/uL (3.80-5.40); RDW 16.1 % (11.5-15.5); WBC 11.2 k/uL (3.8-10.6)
[2018-01-31] MEDS: BUDESONIDE 1 MG/2 ML NEBU INHALATION SCH (08:55)
[2018-01-31] MEDS: FORMOTEROL FUMARATE 20 MCG/2 ML NEBU INHALATION SCH (08:55)
--- NOTE | 2018-01-31 10:28 | P.PN ---
Subjective Progress Note Date: 01/31/18 Principal diagnosis: Acute respiratory failure This is a pleasant 82-year-old female patient who sees Dr. VC Thornton in the office as an outpatient with a past medical history significant for coronary artery disease and prior LAD stenting, hypertension, dyslipidemia, COPD , chronic respiratory failure on home oxygen, who resides currently at extended care facility was brought to the hospital because of shortness of breath. The patient just was not feeling well for the last couple of days. She was more short of breath and more importantly she was coughing extensively with sputum production. No fever and no chills. She was also wheezing. She was admitted to the hospital with acute on chronic respiratory failure. We get involved in her care because of mildly abnormal cardiac enzymes. The patient did not have any symptoms of chest pain or chest discomfort. The EKG did not show any significant ST or T-wave abnormalities concerning for ischemia. On follow-up with the patient today, she is feeling slightly better in term of shortness of breath. I'll follow-up with the patient today, she is feeling slightly better in term of shortness of breath but she continues to have cough. On physical examination she continues to have bilateral expiratory wheezing as well as crackles and also does have bilateral lower extremities edema. Objective - Vital Signs Vital signs: Vital Signs Temp 98.0 F 01/31/18 07:29 Pulse 96 01/31/18 09:14 Resp 16 01/31/18 09:01 BP 126/46 01/31/18 07:29 Pulse Ox 95 01/31/18 07:29 Intake & Output 01/30/18 01/31/18 01/31/18 18:59 06:59 18:59 Intake Total 506 700 580 Output Total 1 Balance 506 699 580 Weight 63.1 kg Intake: IV 30 0.9 30 Intake, IV Titration 50 Amount Piperacillin-Tazobactam 3 50 .375 gm In Dextrose/Water 1 50ml.bag @ 12.5 mls/hr IVPB Q12H [facility] Rx#: [id number] Oral 478 599 580 Output: Urine 1 Other: Voiding Method Bedpan Bedpan Bedpan Diaper Diaper Diaper - Constitutional General appearance: Present: no acute distress - Respiratory Respiratory: bilateral: wheezing - Cardiovascular Rhythm: regular Heart sounds: normal: S1, S2 - Labs CBC & Chem 7: 01/31/18 05:55 01/31/18 05:55 Labs: Abnormal Lab Results - Last 24 Hours (Table) 01/30/18 01/30/18 01/30/18 Range/Units 11:35 16:43 20:53 WBC (3.8-10.6) k/uL RBC (3.80-5.40) m/uL Hgb (11.4-16.0) gm/dL Hct (34.0-46.0) % RDW (11.5-15.5) % BUN (7-17) mg/dL Creatinine (0.52-1.04) mg/dL Glucose (74-99) mg/dL POC Glucose (mg/dL) 119 H 138 H 132 H (75-99) mg/dL Calcium (8.4-10.2) mg/dL 01/31/18 01/31/18 01/31/18 Range/Units 05:55 05:55 06:08 WBC 11.2 H (3.8-10.6) k/uL RBC 2.66 L (3.80-5.40) m/uL Hgb 8.1 L (11.4-16.0) gm/dL Hct 24.3 L (34.0-46.0) % RDW 16.1 H (11.5-15.5) % BUN 53 H (7-17) mg/dL Creatinine 1.85 H (0.52-1.04) mg/dL Glucose 122 H (74-99) mg/dL POC Glucose (mg/dL) 150 H (75-99) mg/dL Calcium 7.8 L (8.4-10.2) mg/dL Microbiology - Last 24 Hours (Table) 01/28/18 08:57 Gram Stain - Preliminary Sputum Sputum Culture - Preliminary Presumptive Staph aureus 01/28/18 12:25 Blood Culture - Preliminary Blood No Growth after 48 hours Assessment and Plan Assessment: Assessment #1 acute on chronic respiratory failure #2 COPD exacerbation #3 pneumonia #4 mildly abnormal cardiac enzymes in the absence of chest discomfort #5 known CAD with prior LAD stenting #6 multiple comorbid conditions Plan #1 continue the current medical treatment with aspirin, statin, and metoprolol #2 follow-up with the patient on when necessary case.
[2018-01-31] MEDS: ISOSORBIDE MONONITRATE ER 30 MG TAB.ER.24H PO SCH (10:32)
[2018-01-31] MEDS: ATORVASTATIN 40 MG TAB PO SCH (10:32)
[2018-01-31] MEDS: ALLOPURINOL 100 MG TAB PO SCH (10:32)
[2018-01-31] MEDS: METOPROLOL TARTRATE 25 MG TAB PO SCH ×2 (10:33→20:53)
[2018-01-31] MEDS: VIT A,C & E-LUTEIN-MINERALS 1 EACH TAB PO SCH ×2 (10:33→20:53)
[2018-01-31] MEDS: methylPREDNISolone SOD SUCCI 40 MG/ML 1 ML VIAL IV SCH (10:55)
[2018-01-31] MEDS: FUROSEMIDE 10 MG/ML 2 ML VIAL IV SCH (11:19)
[2018-01-31 11:52] LABS: Glucose,Whole Blood 144 mg/dL (75-99)
--- NOTE | 2018-01-31 12:35 | P.PN ---
Subjective 79-year-old female admitted with hypoxic respiratory failure most mostly secondary to pneumonia COPD exacerbation. Patient looks much better today patient is on oxygen 5 L. Patient didn't have any more emesis at this time. 01/30/2018 Patient overall had clinical improvement competitors yesterday patient is clinically looking better 01/31/2018 Patient shortness of breath is improving but extremely slow patient's creatinine continued to worsen because of his IV Lasix will be discontinued. Constitutional: Denied any fatigue denied any fever. Cardio vascular: denied any chest pain, palpitations Gastrointestinal denied any nausea vomiting Pulmonary: Continues to have shortness of breath significantly improved Neurologic denied any new focal deficits Objective - Vital Signs Vital signs: Vital Signs Temp 97.9 F 01/31/18 11:44 Pulse 92 01/31/18 12:26 Resp 16 01/31/18 11:44 BP 134/68 01/31/18 11:44 Pulse Ox 96 01/31/18 11:44 Intake & Output 01/30/18 01/31/18 01/31/18 18:59 06:59 18:59 Intake Total 506 700 700 Output Total 1 Balance 506 699 700 Weight 63.1 kg Intake: IV 30 0.9 30 Intake, IV Titration 50 Amount Piperacillin-Tazobactam 3 50 .375 gm In Dextrose/Water 1 50ml.bag @ 12.5 mls/hr IVPB Q12H [facility] Rx#: [id number] Oral 476 650 700 Output: Urine 1 Other: Voiding Method Bedpan Bedpan Bedpan Diaper Diaper Diaper - Exam PHYSICAL EXAMINATION: GENERAL: The patient is alert and oriented x3, Thin built improved respiratory distress HEENT: Pupils are round and equally reacting to light. EOMI. No scleral icterus. No conjunctival pallor. Normocephalic, atraumatic. No pharyngeal erythema. No thyromegaly. CARDIOVASCULAR: S1 and S2 present. No murmurs, rubs, or gallops. PULMONARY: Significantly decreased air entry into bilateral lung campbell significant expiratory wheezing was appreciated mildly his crackles were appreciated as well. ABDOMEN: Soft, nontender, nondistended, normoactive bowel sounds. No palpable organomegaly. MUSCULOSKELETAL: No joint swelling or deformity. EXTREMITIES: No cyanosis, clubbing, or pedal edema. NEUROLOGICAL: Gross neurological examination did not reveal any focal deficits. SKIN: No rashes. - Labs CBC & Chem 7: 04/13/18 05:55 01/31/18 05:55 Labs: Abnormal Lab Results - Last 24 Hours (Table) 01/30/18 01/30/18 01/31/18 Range/Units 16:43 20:53 05:55 WBC 11.2 H (3.8-10.6) k/uL RBC 2.66 L (3.80-5.40) m/uL Hgb 8.1 L (11.4-16.0) gm/dL Hct 24.3 L (34.0-46.0) % RDW 16.1 H (11.5-15.5) % BUN (7-17) mg/dL Creatinine (0.52-1.04) mg/dL Glucose (74-99) mg/dL POC Glucose (mg/dL) 138 H 132 H (75-99) mg/dL Calcium (8.4-10.2) mg/dL 01/31/18 01/31/18 01/31/18 Range/Units 05:55 06:08 11:47 WBC (3.8-10.6) k/uL RBC (3.80-5.40) m/uL Hgb (11.4-16.0) gm/dL Hct (34.0-46.0) % RDW (11.5-15.5) % BUN 53 H (7-17) mg/dL Creatinine 1.85 H (0.52-1.04) mg/dL Glucose 122 H (74-99) mg/dL POC Glucose (mg/dL) 150 H 144 H (75-99) mg/dL Calcium 7.8 L (8.4-10.2) mg/dL Microbiology - Last 24 Hours (Table) 01/28/18 08:57 Gram Stain - Preliminary Sputum Sputum Culture - Preliminary Presumptive Staph aureus 01/28/18 12:25 Blood Culture - Preliminary Blood No Growth after 48 hours Assessment and Plan Plan: -Acute on chronic hypercapnic respiratory failure as well as acute hypoxic respiratory failure: Secondary to possible COPD exacerbation and early SIRS of right upper lobe pneumonia respectively. Patient was started on Rocephin and azithromycin, systemic steroids inhalational treatments. Lasix was discontinued because of worsening creatinine -Chronic hypercapnic respiratory failure secondary to COPD uses 2.5 L of oxygen -Hyperlipidemia -Elevated troponin secondary to hypoxemia and sepsis. 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
--- NOTE | 2018-01-31 13:30 | P.PN ---
Subjective Progress Note Date: 01/31/18 Principal diagnosis: Shortness of breath Progress note dated 01/31/2018 This is an 82-year-old female with history of chronic hypoxemic respiratory failure secondary to COPD exacerbation as well as diastolic heart failure. There may also be a component of either acute bronchitis with bronchospasm or bronchopneumonia. The patient was also found to have a troponin leak, CAD with previous stent placement, influenza B infection, acute on chronic renal failure , hypothyroidism, hypertension, hyperlipidemia, and general medical debility. Feeling a bit better today. Feels a bit less short of breath. Was told by somebody she was going home but then told a subsequent time that she was staying. She prefers to stay for at least another day or 2. The patient does have a cough. Does produce a bit of phlegm. No fever or chills. No chest pain or chest discomfort. She is a no code. Objective - Vital Signs Vital signs: Vital Signs Temp 97.9 F 01/31/18 11:44 Pulse 92 01/31/18 12:26 Resp 16 01/31/18 11:44 BP 134/68 01/31/18 11:44 Pulse Ox 96 01/31/18 11:44 Intake & Output 01/30/18 01/31/18 01/31/18 18:59 06:59 18:59 Intake Total 506 700 700 Output Total 1 Balance 506 699 700 Weight 63.1 kg Intake: IV 30 0.9 30 Intake, IV Titration 50 Amount Piperacillin-Tazobactam 3 50 .375 gm In Dextrose/Water 1 50ml.bag @ 12.5 mls/hr IVPB Q12H [facility] Rx#: [id number] Oral 476 650 700 Output: Urine 1 Other: Voiding Method Bedpan Bedpan Bedpan Diaper Diaper Diaper - Exam No acute distress, oriented 3. A wet and congested cough is noted. Nasal O2 in place. HEENT examination is grossly unremarkable. Mucous membranes are moist. No oral lesions. Neck supple. Full range of motion. No adenopathy thyromegaly or neck vein distention. Cardiovascular examination reveals regular rhythm rate. S1-S2 normal. No S3 or S4. No discernible murmur noted. Lungs reveal coarse bilateral rhonchi. Breath sounds are diminished. A few scattered crackles. There is some expiratory wheezes. Abdomen soft bowel sounds are heard. No masses or tenderness. Extremities are intact. No cyanosis clubbing or edema. Skin is without rash or lesion. Neurologic examination is brief but nonfocal. - Labs CBC & Chem 7: 01/31/18 05:55 01/31/18 05:55 Labs: Abnormal Lab Results - Last 24 Hours (Table) 01/30/18 01/30/18 01/31/18 Range/Units 16:43 20:53 05:55 WBC 11.2 H (3.8-10.6) k/uL RBC 2.66 L (3.80-5.40) m/uL Hgb 8.1 L (11.4-16.0) gm/dL Hct 24.3 L (34.0-46.0) % RDW 16.1 H (11.5-15.5) % BUN (7-17) mg/dL Creatinine (0.52-1.04) mg/dL Glucose (74-99) mg/dL POC Glucose (mg/dL) 138 H 132 H (75-99) mg/dL Calcium (8.4-10.2) mg/dL 01/31/18 01/31/18 01/31/18 Range/Units 05:55 06:08 11:47 WBC (3.8-10.6) k/uL RBC (3.80-5.40) m/uL Hgb (11.4-16.0) gm/dL Hct (34.0-46.0) % RDW (11.5-15.5) % BUN 53 H (7-17) mg/dL Creatinine 1.85 H (0.52-1.04) mg/dL Glucose 122 H (74-99) mg/dL POC Glucose (mg/dL) 150 H 144 H (75-99) mg/dL Calcium 7.8 L (8.4-10.2) mg/dL Microbiology - Last 24 Hours (Table) 01/28/18 08:57 Gram Stain - Preliminary Sputum Sputum Culture - Preliminary Presumptive Staph aureus 01/28/18 12:25 Blood Culture - Preliminary Blood No Growth after 48 hours Assessment and Plan Assessment: Assessment Acute on chronic hypoxemic respiratory failure, multifactorial, in part related to COPD exacerbation, diastolic heart failure, and possible acute bronchitis with bronchospasm versus pneumonia. Mild troponin leak CAD with previous stent placement Recent history of influenza B infection Acute on chronic renal failure Hypothyroidism Hypertension Hyperlipidemia General medical debility Plan: Plan dated 01/31/2018 Labs x-rays a medications are all reviewed. The patient is moving in a positive direction albeit slowly. We'll continue to follow. Probably needs another day or 2 here in the hospital. No discharge recommendations are made. Prognosis is poor. Time with Patient: Less than 30
[2018-01-31 13:35] VITALS: BMI 27.1
[2018-01-31] MEDS: PIPERACILLIN-TAZOBACTAM 3.375 GM in DEXTROSE/WATER 1 50ML.BAG IVPB SCH (13:36)
[2018-01-31] MEDS ORDERED: VANCOMYCIN IV PER PHARMACY 1 EACH MISC MISCELLANE PRN (13:46)
[2018-01-31] MEDS ORDERED: VANCOMYCIN 1,250 MG in SODIUM CHLORIDE 0.9% 250 ML IVPB STA (13:48)
[2018-01-31 16:37] LABS: Glucose,Whole Blood 137 mg/dL (75-99)
[2018-01-31] MEDS: guaiFENesin-DM 100-10MG/5ML 10 ML CUP PO PRN (17:02)
[2018-01-31] MEDS: SYMBICORT 160-4.5 MCG INHALER INHALATION SCH (20:16)
[2018-01-31] MEDS: LATANOPROST 0.005% OPHTH DROPS 2.5 ML BTL BOTH EYES SCH (20:53)
[2018-01-31] MEDS: ASPIRIN 81 MG PO SCH (20:53)
[2018-01-31 20:57] LABS: Glucose,Whole Blood 174 mg/dL (75-99)
[2018-02-01] MEDS: PIPERACILLIN-TAZOBACTAM 3.375 GM in DEXTROSE/WATER 1 50ML.BAG IVPB SCH ×3 (00:23→23:38)
[2018-02-01] MEDS: guaiFENesin-DM 100-10MG/5ML 10 ML CUP PO PRN (00:28)
[2018-02-01] MEDS: IPRATROPIUM-ALBUTEROL 3 ML NEB INHALATION PRN ×2 (03:42→23:45)
[2018-02-01] MEDS: LEVOTHYROXINE 50 MCG TAB PO SCH (06:10)
[2018-02-01] MEDS: PANTOPRAZOLE 40 MG TABLET PO SCH ×2 (06:10→16:25)
[2018-02-01 06:37] LABS: Anisocytosis Slight; HCT 28.2 % (34.0-46.0); HGB 8.8 gm/dL (11.4-16.0); Hypochromasia Slight; MCH 29.6 pg (25.0-35.0); MCHC 31.2 g/dL (31.0-37.0); Mean Platelet Volume 7.7; Platelet Count 233 k/uL (150-450); RBC 2.97 m/uL (3.80-5.40); RDW 16.1 % (11.5-15.5); WBC 14.2 k/uL (3.8-10.6)
[2018-02-01 06:44] LABS: Calcium 8.1 mg/dL (8.4-10.2); Potassium 3.7 mmol/L (3.5-5.1)
[2018-02-01 06:47] LABS: Glucose,Whole Blood 139 mg/dL (75-99)
[2018-02-01] MEDS: ISOSORBIDE MONONITRATE ER 30 MG TAB.ER.24H PO SCH (07:43)
[2018-02-01] MEDS: METOPROLOL TARTRATE 25 MG TAB PO SCH ×2 (07:44→19:46)
[2018-02-01] MEDS: ATORVASTATIN 40 MG TAB PO SCH (07:44)
[2018-02-01] MEDS: VIT A,C & E-LUTEIN-MINERALS 1 EACH TAB PO SCH ×2 (07:44→19:46)
[2018-02-01] MEDS: ALLOPURINOL 100 MG TAB PO SCH (07:44)
[2018-02-01] MEDS: predniSONE 10 MG TAB PO SCH (07:44)
[2018-02-01] MEDS: IPRATROPIUM-ALBUTEROL 3 ML NEB INHALATION SCH ×4 (08:02→18:56)
[2018-02-01] MEDS: SYMBICORT 160-4.5 MCG INHALER INHALATION SCH ×2 (08:02→18:56)
[2018-02-01] MEDS ORDERED: VANCOMYCIN 1,250 MG in SODIUM CHLORIDE 0.9% 250 ML IVPB ONE (12:00)
[2018-02-01 12:09] LABS: Glucose,Whole Blood 128 mg/dL (75-99)
[2018-02-01] MEDS ORDERED: FUROSEMIDE 10 MG/ML 4 ML VIAL IV STA (13:20)
--- NOTE | 2018-02-01 14:30 | P.PN ---
Subjective Progress Note Date: 02/01/18 This is a pleasant 82-year-old female patient who sees Dr. VC Thornton in the office as an outpatient with a past medical history significant for coronary artery disease and prior LAD stenting, hypertension, dyslipidemia, COPD , chronic respiratory failure on home oxygen, who resides currently at extended care facility was brought to the hospital because of shortness of breath. The patient just was not feeling well for the last couple of days. She was more short of breath and more importantly she was coughing extensively with sputum production. No fever and no chills. She was also wheezing. She was admitted to the hospital with acute on chronic respiratory failure. We get involved in her care because of mildly abnormal cardiac enzymes. The patient did not have any symptoms of chest pain or chest discomfort. The EKG did not show any significant ST or T-wave abnormalities concerning for ischemia. On follow-up with the patient today, she is feeling slightly better in term of shortness of breath. 02/01/2018 Patient was seen and examined this morning, sitting up in the chair at bedside, feeling better overall. Still has mild bilateral edema. Blood pressure 140/60 heart rate 90. White blood cell count 14.2, hemoglobin 8.8, platelet count 233. Potassium 3.7, BUN 51, creatinine 2.0. We will give the patient one time dose of IV Lasix today, continue the rest of her medications. Objective - Vital Signs Vital signs: Vital Signs Temp 97 F L 02/01/18 11:07 Pulse 88 02/01/18 11:44 Resp 18 02/01/18 11:30 BP 141/66 02/01/18 11:07 Pulse Ox 98 02/01/18 11:07 Intake & Output 01/31/18 02/01/18 02/01/18 18:59 06:59 18:59 Intake Total 1170 300 120 Balance 1170 300 120 Weight 63.1 kg 62.3 kg Intake: Intake, IV Titration 50 300 Amount Piperacillin-Tazobactam 3 50 50 .375 gm In Dextrose/Water 1 50ml.bag @ 12.5 mls/hr IVPB Q12H [facility] Rx#: [id number] Vancomycin 1,250 mg In 250 Sodium Chloride 0.9% 250 ml @ 125 mls/hr IVPB ONCE ONE Rx#:[id number] Oral 1120 120 Other: Voiding Method Bedpan Bedpan Diaper Diaper # Voids 2 1 - Exam PHYSICAL EXAMINATION: HEENT: Head is atraumatic, normocephalic. Pupils equal, round. Neck is supple. There is no elevated jugular venous pressure. HEART EXAMINATION: Heart S1, S2 normal. No murmur or gallop heard. CHEST EXAMINATION: Lungs reveal scattered wheezing throughout ABDOMEN: Soft, nontender. Bowel sounds are heard. No organomegaly noted. EXTREMITIES: 2+ peripheral pulses with trace to 1+ evidence of peripheral edema and no calf tenderness noted. NEUROLOGIC patient is awake, alert and oriented -3. . - Labs CBC & Chem 7: 02/01/18 05:41 02/01/18 05:41 Labs: Abnormal Lab Results - Last 24 Hours (Table) 01/31/18 01/31/18 02/01/18 Range/Units 16:20 20:54 05:41 WBC 14.2 H (3.8-10.6) k/uL RBC 2.97 L (3.80-5.40) m/uL Hgb 8.8 L (11.4-16.0) gm/dL Hct 28.2 L (34.0-46.0) % RDW 16.1 H (11.5-15.5) % BUN (7-17) mg/dL Creatinine (0.52-1.04) mg/dL Glucose (74-99) mg/dL POC Glucose (mg/dL) 137 H 174 H (75-99) mg/dL Calcium (8.4-10.2) mg/dL 02/01/18 02/01/18 02/01/18 Range/Units 05:41 06:46 11:53 WBC (3.8-10.6) k/uL RBC (3.80-5.40) m/uL Hgb (11.4-16.0) gm/dL Hct (34.0-46.0) % RDW (11.5-15.5) % BUN 51 H (7-17) mg/dL Creatinine 2.06 H (0.52-1.04) mg/dL Glucose 119 H (74-99) mg/dL POC Glucose (mg/dL) 139 H 128 H (75-99) mg/dL Calcium 8.1 L (8.4-10.2) mg/dL Microbiology - Last 24 Hours (Table) 01/28/18 08:57 Gram Stain - Final Sputum Sputum Culture - Final Methicillin resist S. aureus 01/28/18 12:25 Blood Culture - Preliminary Blood No Growth after 72 hours Assessment and Plan Plan: Assessment #1 acute on chronic respiratory failure #2 COPD exacerbation #3 pneumonia #4 mildly abnormal cardiac enzymes in the absence of chest discomfort #5 known CAD with prior LAD stenting #6 multiple comorbid conditions Plan We'll give her one time dose of 40 mg IV Lasix today. Continue the rest of her medications. We will follow her now on an as-needed basis only, please don't hesitate to call with any questions. DNP note has been reviewed, I agree with a documented findings and plan of care. Patient was seen and examined.
--- NOTE | 2018-02-01 14:34 | P.PN ---
Subjective Progress Note Date: 02/01/18 Principal diagnosis: Shortness of breath Progress note dated 01/31/2018 This is an 82-year-old female with history of chronic hypoxemic respiratory failure secondary to COPD exacerbation as well as diastolic heart failure. There may also be a component of either acute bronchitis with bronchospasm or bronchopneumonia. The patient was also found to have a troponin leak, CAD with previous stent placement, influenza B infection, acute on chronic renal failure , hypothyroidism, hypertension, hyperlipidemia, and general medical debility. Feeling a bit better today. Feels a bit less short of breath. Was told by somebody she was going home but then told a subsequent time that she was staying. She prefers to stay for at least another day or 2. The patient does have a cough. Does produce a bit of phlegm. No fever or chills. No chest pain or chest discomfort. She is a no code. Progress note dated 02/01/2018 82-year-old female with a history of chronic hypoxemic respiratory failure secondary to COPD exacerbation as well as diastolic heart failure. From January 28 was evidence of methicillin-resistant staph aureus. I did start her on vancomycin yesterday. There is also component of either acute bronchitis with bronchospasm and/or bronchopneumonia given the above findings. She was also found to have a troponin leak CAD with previous stent placement influenza B infection acute on chronic renal fire hypothyroidism hypertension hyperlipidemia and general medical debility. She does feel a bit better. Still coughing and producing yellow phlegm. No fever or chills. Lots of tightness in her chest. Lots of moist and right chest congestion. No fever or chills. No nausea vomiting or diarrhea. No chest pain or chest pressure. She is a DO NOT RESUSCITATE. Objective - Vital Signs Vital signs: Vital Signs Temp 97 F L 02/01/18 11:07 Pulse 88 02/01/18 11:44 Resp 18 02/01/18 11:30 BP 141/66 02/01/18 11:07 Pulse Ox 98 02/01/18 11:07 Intake & Output 01/31/18 02/01/18 02/01/18 18:59 06:59 18:59 Intake Total 1170 300 120 Balance 1170 300 120 Weight 63.1 kg 62.3 kg Intake: Intake, IV Titration 50 300 Amount Piperacillin-Tazobactam 3 50 50 .375 gm In Dextrose/Water 1 50ml.bag @ 12.5 mls/hr IVPB Q12H [facility] Rx#: [id number] Vancomycin 1,250 mg In 250 Sodium Chloride 0.9% 250 ml @ 125 mls/hr IVPB ONCE ONE Rx#:[id number] Oral 1120 120 Other: Voiding Method Bedpan Bedpan Diaper Diaper # Voids 2 1 - Exam No acute distress, oriented 3. A wet and congested cough is noted. Nasal O2 in place. HEENT examination is grossly unremarkable. Mucous membranes are moist. No oral lesions. Neck supple. Full range of motion. No adenopathy thyromegaly or neck vein distention. Cardiovascular examination reveals regular rhythm rate. S1-S2 normal. No S3 or S4. No discernible murmur noted. Lungs reveal coarse bilateral rhonchi. Breath sounds are diminished. A few scattered crackles. There is some expiratory wheezes. Abdomen soft bowel sounds are heard. No masses or tenderness. Extremities are intact. No cyanosis clubbing or edema. Skin is without rash or lesion. Neurologic examination is brief but nonfocal. - Labs CBC & Chem 7: 02/01/18 05:41 02/01/18 05:41 Labs: Abnormal Lab Results - Last 24 Hours (Table) 01/31/18 01/31/18 02/01/18 Range/Units 16:20 20:54 05:41 WBC 14.2 H (3.8-10.6) k/uL RBC 2.97 L (3.80-5.40) m/uL Hgb 8.8 L (11.4-16.0) gm/dL Hct 28.2 L (34.0-46.0) % RDW 16.1 H (11.5-15.5) % BUN (7-17) mg/dL Creatinine (0.52-1.04) mg/dL Glucose (74-99) mg/dL POC Glucose (mg/dL) 137 H 174 H (75-99) mg/dL Calcium (8.4-10.2) mg/dL 02/01/18 02/01/18 02/01/18 Range/Units 05:41 06:46 11:53 WBC (3.8-10.6) k/uL RBC (3.80-5.40) m/uL Hgb (11.4-16.0) gm/dL Hct (34.0-46.0) % RDW (11.5-15.5) % BUN 51 H (7-17) mg/dL Creatinine 2.06 H (0.52-1.04) mg/dL Glucose 119 H (74-99) mg/dL POC Glucose (mg/dL) 139 H 128 H (75-99) mg/dL Calcium 8.1 L (8.4-10.2) mg/dL Microbiology - Last 24 Hours (Table) 01/28/18 08:57 Gram Stain - Final Sputum Sputum Culture - Final Methicillin resist S. aureus 01/28/18 12:25 Blood Culture - Preliminary Blood No Growth after 72 hours Assessment and Plan Assessment: Assessment Acute on chronic hypoxemic respiratory failure, multifactorial, in part related to COPD exacerbation, diastolic heart failure, and possible acute bronchitis with bronchospasm versus pneumonia. Methicillin-resistant staph aureus bronchitis/bronchopneumonia Mild troponin leak CAD with previous stent placement Recent history of influenza B infection Acute on chronic renal failure Hypothyroidism Hypertension Hyperlipidemia General medical debility Plan: Plan dated 01/31/2018 Labs x-rays a medications are all reviewed. The patient is moving in a positive direction albeit slowly. We'll continue to follow. Probably needs another day or 2 here in the hospital. No discharge recommendations are made. Prognosis is poor. Plan dated 02/01/2018 The patient was started on vancomycin yesterday. She'll continue on vancomycin. Overall prognosis is poor. She's progressing very slowly. She is on all the usual medications of any breathing treatments oxygen, etc. We will continue to follow. Hopefully discharge in next couple of days. She may benefit from a PICC line and outpatient antibiotics. Time with Patient: Less than 30
--- NOTE | 2018-02-01 14:38 | P.PN ---
Subjective 79-year-old female admitted with hypoxic respiratory failure most mostly secondary to pneumonia COPD exacerbation. Patient looks much better today patient is on oxygen 5 L. Patient didn't have any more emesis at this time. 01/30/2018 Patient overall had clinical improvement competitors yesterday patient is clinically looking better 01/31/2018 Patient shortness of breath is improving but extremely slow patient's creatinine continued to worsen because of his IV Lasix will be discontinued. 02/01/2018 Patient doesn't have any clinical improvement patient looks worse today but feels bit improved patient has MRSA in the sputum for which patient was started on vancomycin. Constitutional: Denied any fatigue denied any fever. Cardio vascular: denied any chest pain, palpitations Gastrointestinal denied any nausea vomiting Pulmonary: Continues to have shortness of breath significantly improved Neurologic denied any new focal deficits Objective - Vital Signs Vital signs: Vital Signs Temp 97 F L 02/01/18 11:07 Pulse 88 02/01/18 11:44 Resp 18 02/01/18 11:30 BP 141/66 02/01/18 11:07 Pulse Ox 98 02/01/18 11:07 Intake & Output 01/31/18 02/01/18 02/01/18 18:59 06:59 18:59 Intake Total 1170 300 120 Balance 1170 300 120 Weight 63.1 kg 62.3 kg Intake: Intake, IV Titration 50 300 Amount Piperacillin-Tazobactam 3 50 50 .375 gm In Dextrose/Water 1 50ml.bag @ 12.5 mls/hr IVPB Q12H [facility] Rx#: [id number] Vancomycin 1,250 mg In 250 Sodium Chloride 0.9% 250 ml @ 125 mls/hr IVPB ONCE ONE Rx#:[id number] Oral 1120 120 Other: Voiding Method Bedpan Bedpan Diaper Diaper # Voids 2 1 - Exam PHYSICAL EXAMINATION: GENERAL: The patient is alert and oriented x3, Thin built improved respiratory distress HEENT: Pupils are round and equally reacting to light. EOMI. No scleral icterus. No conjunctival pallor. Normocephalic, atraumatic. No pharyngeal erythema. No thyromegaly. CARDIOVASCULAR: S1 and S2 present. No murmurs, rubs, or gallops. PULMONARY: Significantly decreased air entry into bilateral lung campbell significant expiratory wheezing was appreciated mildly his crackles were appreciated as well. ABDOMEN: Soft, nontender, nondistended, normoactive bowel sounds. No palpable organomegaly. MUSCULOSKELETAL: No joint swelling or deformity. EXTREMITIES: No cyanosis, clubbing, or pedal edema. NEUROLOGICAL: Gross neurological examination did not reveal any focal deficits. SKIN: No rashes. - Labs CBC & Chem 7: 02/01/18 05:41 02/01/18 05:41 Labs: Abnormal Lab Results - Last 24 Hours (Table) 01/31/18 01/31/18 02/01/18 Range/Units 16:20 20:54 05:41 WBC 14.2 H (3.8-10.6) k/uL RBC 2.97 L (3.80-5.40) m/uL Hgb 8.8 L (11.4-16.0) gm/dL Hct 28.2 L (34.0-46.0) % RDW 16.1 H (11.5-15.5) % BUN (7-17) mg/dL Creatinine (0.52-1.04) mg/dL Glucose (74-99) mg/dL POC Glucose (mg/dL) 137 H 174 H (75-99) mg/dL Calcium (8.4-10.2) mg/dL 02/01/18 02/01/18 02/01/18 Range/Units 05:41 06:46 11:53 WBC (3.8-10.6) k/uL RBC (3.80-5.40) m/uL Hgb (11.4-16.0) gm/dL Hct (34.0-46.0) % RDW (11.5-15.5) % BUN 51 H (7-17) mg/dL Creatinine 2.06 H (0.52-1.04) mg/dL Glucose 119 H (74-99) mg/dL POC Glucose (mg/dL) 139 H 128 H (75-99) mg/dL Calcium 8.1 L (8.4-10.2) mg/dL Microbiology - Last 24 Hours (Table) 01/28/18 08:57 Gram Stain - Final Sputum Sputum Culture - Final Methicillin resist S. aureus 01/28/18 12:25 Blood Culture - Preliminary Blood No Growth after 72 hours Assessment and Plan Plan: -Acute on chronic hypercapnic respiratory failure as well as acute hypoxic respiratory failure: Secondary to possible COPD exacerbation and early SIRS of right upper lobe pneumonia respectively, possible MRSA pneumonia. Patient is presently on vancomycin as well as Zosyn -Chronic hypercapnic respiratory failure secondary to COPD uses 2.5 L of oxygen -Hyperlipidemia -Elevated troponin secondary to hypoxemia and sepsis. -Possible sepsis secondary to right upper lobe pneumonia -Chronic kidney disease stage 3: Probably hypertensive nephrosclerosis with acute kidney injury secondary to excessive diuretic therapy which was discontinued -Hypothyroidism -hypertension patient on Tenormin is presently hypotensive, patient is presently on metoprolol with fairly controlled heart rate
[2018-02-01] MEDS: LATANOPROST 0.005% OPHTH DROPS 2.5 ML BTL BOTH EYES SCH (19:46)
[2018-02-01] MEDS: ASPIRIN 81 MG PO SCH (19:46)
[2018-02-02] MEDS: IPRATROPIUM-ALBUTEROL 3 ML NEB INHALATION PRN ×2 (03:42→23:10)
[2018-02-02] MEDS: PANTOPRAZOLE 40 MG TABLET PO SCH ×2 (06:39→17:14)
[2018-02-02] MEDS: LEVOTHYROXINE 50 MCG TAB PO SCH (06:39)
[2018-02-02 06:59] LABS: Calcium 8.6 mg/dL (8.4-10.2); Potassium 3.5 mmol/L (3.5-5.1)
[2018-02-02] MEDS: SYMBICORT 160-4.5 MCG INHALER INHALATION SCH ×2 (07:02→19:37)
[2018-02-02] MEDS: IPRATROPIUM-ALBUTEROL 3 ML NEB INHALATION SCH ×4 (07:02→19:37)
[2018-02-02] MEDS: ALLOPURINOL 100 MG TAB PO SCH (07:50)
[2018-02-02] MEDS: predniSONE 10 MG TAB PO SCH (07:50)
[2018-02-02] MEDS: ATORVASTATIN 40 MG TAB PO SCH (07:50)
[2018-02-02] MEDS: METOPROLOL TARTRATE 25 MG TAB PO SCH ×2 (07:50→20:00)
[2018-02-02] MEDS: ISOSORBIDE MONONITRATE ER 30 MG TAB.ER.24H PO SCH (07:50)
[2018-02-02] MEDS: VIT A,C & E-LUTEIN-MINERALS 1 EACH TAB PO SCH ×2 (07:51→20:00)
[2018-02-02] MEDS: LORazepam 0.5 MG TAB PO PRN (09:19)
[2018-02-02] MEDS ORDERED: FUROSEMIDE 10 MG/ML 4 ML VIAL IV STA (09:20)
[2018-02-02] MEDS ORDERED: POTASSIUM CHLORIDE ER 20 MEQ TAB.ER PO STA (09:21)
--- NOTE | 2018-02-02 10:06 | PN ---
PROGRESS NOTE DATE OF SERVICE: 02/02/2018 HISTORY: Ms. Chau is an 82-year-old female with a history of chronic obstructive lung disease, who presented with symptoms of progressive dyspnea. She is quite dyspneic this morning. She could not sleep. She denies any chest pain. No dizziness. She denies any palpitations. She continues to be, at this time, on aspirin once a day, Lipitor 40 mg daily, isosorbide mononitrate 30 mg daily, metoprolol tartrate 25 mg twice a day, prednisone. PHYSICAL EXAMINATION: Blood pressure 135/90 with a heart rate in the 100s. Lungs was diffuse wheezes bilaterally with decreased air exchange. Heart, S1 and S2, no S3, with systolic murmur. Abdomen is soft, nontender. Extremities +1 edema. LAB DATA: BUN and creatinine 15 and 1.85, potassium 3.5. IMPRESSION: 1. Worsening dyspnea with exacerbation of COPD in a patient with known history of severe chronic obstructive lung disease. 2. Probable element of diastolic congestive heart failure. 3. Chronic kidney disease. 4. History of coronary artery disease. RECOMMENDATIONS: From the cardiac standpoint, I will give her 1 dose of Lasix. Continue the rest of her medical regimen. Unfortunately, her prognosis is guarded. From the cardiac standpoint, she is stable. We will see her on an as needed basis. Please feel free to call us for any questions. MMODL / IJN: [id number] /
[2018-02-02] MEDS: PIPERACILLIN-TAZOBACTAM 3.375 GM in DEXTROSE/WATER 1 50ML.BAG IVPB SCH (10:39)
--- NOTE | 2018-02-02 11:48 | P.PN ---
Subjective Progress Note Date: 02/02/18 Principal diagnosis: Shortness of breath Progress note dated 01/31/2018 This is an 82-year-old female with history of chronic hypoxemic respiratory failure secondary to COPD exacerbation as well as diastolic heart failure. There may also be a component of either acute bronchitis with bronchospasm or bronchopneumonia. The patient was also found to have a troponin leak, CAD with previous stent placement, influenza B infection, acute on chronic renal failure , hypothyroidism, hypertension, hyperlipidemia, and general medical debility. Feeling a bit better today. Feels a bit less short of breath. Was told by somebody she was going home but then told a subsequent time that she was staying. She prefers to stay for at least another day or 2. The patient does have a cough. Does produce a bit of phlegm. No fever or chills. No chest pain or chest discomfort. She is a no code. Progress note dated 02/01/2018 82-year-old female with a history of chronic hypoxemic respiratory failure secondary to COPD exacerbation as well as diastolic heart failure. From January 28 was evidence of methicillin-resistant staph aureus. I did start her on vancomycin yesterday. There is also component of either acute bronchitis with bronchospasm and/or bronchopneumonia given the above findings. She was also found to have a troponin leak CAD with previous stent placement influenza B infection acute on chronic renal fire hypothyroidism hypertension hyperlipidemia and general medical debility. She does feel a bit better. Still coughing and producing yellow phlegm. No fever or chills. Lots of tightness in her chest. Lots of moist and right chest congestion. No fever or chills. No nausea vomiting or diarrhea. No chest pain or chest pressure. She is a DO NOT RESUSCITATE. Progress note dated 02/02/2018 82-year-old female with a history of chronic hypoxemic respiratory failure secondary to COPD exacerbation as well as diastolic heart failure. The patient did have evidence of methicillin-resistant staph aureus in a sputum from January 28. The patient was started on vancomycin. Today, she's feeling miserable. She wants to " throw the towel." The patient was also found have a troponin leak , CAD with previous stent placement, influenza B, acute on chronic renal failure , hypothyroidism, hypertension, hyperlipidemia and general medical debility. The patient is doing poorly. I discussed the situation with the nurse. The nurse to call the daughter. I did a hospice consult will be very appropriate. The patient's very lethargic and somnolent. Objective - Vital Signs Vital signs: Vital Signs Temp 98 F 02/02/18 10:42 Pulse 104 H 02/02/18 11:33 Resp 18 02/02/18 10:42 BP 151/93 02/02/18 10:42 Pulse Ox 94 L 02/02/18 10:42 Intake & Output 02/01/18 02/02/18 02/02/18 18:59 06:59 18:59 Intake Total 120 Output Total 400 300 Balance -280 -300 Weight 62.6 kg Intake: Oral 120 Output: Urine 400 300 Other: Voiding Method Bedpan Diaper # Voids 1 1 - Exam She is very sleepy and lethargic. She does arouse and she is appropriate.. A wet and congested cough is noted. Nasal O2 in place. HEENT examination is grossly unremarkable. Mucous membranes are moist. No oral lesions. Neck supple. Full range of motion. No adenopathy thyromegaly or neck vein distention. Cardiovascular examination reveals regular rhythm rate. S1-S2 normal. No S3 or S4. No discernible murmur noted. Lungs reveal coarse bilateral rhonchi. Breath sounds are diminished. A few scattered crackles. There is some expiratory wheezes. Abdomen soft bowel sounds are heard. No masses or tenderness. Extremities are intact. No cyanosis clubbing or edema. Skin reveals numerous ecchymoses. Neurologic examination is brief but nonfocal. - Labs CBC & Chem 7: 02/01/18 05:41 02/02/18 05:44 Labs: Abnormal Lab Results - Last 24 Hours (Table) 02/01/18 02/02/18 Range/Units 11:53 05:44 Sodium 146 H (137-145) mmol/L BUN 50 H (7-17) mg/dL Creatinine 1.85 H (0.52-1.04) mg/dL POC Glucose (mg/dL) 128 H (75-99) mg/dL Microbiology - Last 24 Hours (Table) 01/28/18 12:25 Blood Culture - Preliminary Blood No Growth after 96 hours 01/28/18 08:57 Gram Stain - Final Sputum Sputum Culture - Final Methicillin resist S. aureus Assessment and Plan Assessment: Assessment Acute on chronic hypoxemic respiratory failure, multifactorial, in part related to COPD exacerbation, diastolic heart failure, and possible acute bronchitis with bronchospasm versus pneumonia. Methicillin-resistant staph aureus bronchitis/bronchopneumonia Mild troponin leak CAD with previous stent placement Recent history of influenza B infection Acute on chronic renal failure Hypothyroidism Hypertension Hyperlipidemia General medical debility Plan: Plan dated 01/31/2018 Labs x-rays a medications are all reviewed. The patient is moving in a positive direction albeit slowly. We'll continue to follow. Probably needs another day or 2 here in the hospital. No discharge recommendations are made. Prognosis is poor. Plan dated 02/01/2018 The patient was started on vancomycin yesterday. She'll continue on vancomycin. Overall prognosis is poor. She's progressing very slowly. She is on all the usual medications of any breathing treatments oxygen, etc. We will continue to follow. Hopefully discharge in next couple of days. She may benefit from a PICC line and outpatient antibiotics. Plan dated 02/02/2018 The patient was started on vancomycin. Sputum which revealed methicillin- resistant staph aureus on January 28. The patient's overall prognosis is very poor shape and declining on a day by day basis. Today, we had a long conversation about not only her current situation but the fact that she really wants to "throw in the towel". I think hospice consultation a palliative care consultation will be very appropriate. No additional recommendations are made. We'll continue to follow. I did describe positional situation to the nurse. Time with Patient: Less than 30
[2018-02-02] MEDS ORDERED: METOPROLOL TARTRATE 25 MG TAB PO STA (13:35)
--- NOTE | 2018-02-02 14:09 | P.PN ---
Subjective 79-year-old female admitted with hypoxic respiratory failure most mostly secondary to pneumonia COPD exacerbation. Patient looks much better today patient is on oxygen 5 L. Patient didn't have any more emesis at this time. 01/30/2018 Patient overall had clinical improvement competitors yesterday patient is clinically looking better 01/31/2018 Patient shortness of breath is improving but extremely slow patient's creatinine continued to worsen because of his IV Lasix will be discontinued. 02/01/2018 Patient doesn't have any clinical improvement patient looks worse today but feels bit improved patient has MRSA in the sputum for which patient was started on vancomycin. 02/02/2018 Patient doesn't have any significant improvement, patient is not feeling well at patient is being treated for staph aureus bronchitis Constitutional: Denied any fatigue denied any fever. Cardio vascular: denied any chest pain, palpitations Gastrointestinal denied any nausea vomiting Pulmonary: Continues to have shortness of breath Neurologic denied any new focal deficits Objective - Vital Signs Vital signs: Vital Signs Temp 98 F 02/02/18 10:42 Pulse 104 H 02/02/18 11:33 Resp 18 02/02/18 11:45 BP 151/93 02/02/18 10:42 Pulse Ox 94 L 02/02/18 10:42 Intake & Output 02/01/18 02/02/18 02/02/18 18:59 06:59 18:59 Intake Total 120 Output Total 400 300 Balance -280 -300 Weight 62.6 kg Intake: Oral 120 Output: Urine 400 300 Other: Voiding Method Bedpan Diaper # Voids 1 1 - Exam PHYSICAL EXAMINATION: GENERAL: The patient is alert and oriented x3, Thin built improved respiratory distress HEENT: Pupils are round and equally reacting to light. EOMI. No scleral icterus. No conjunctival pallor. Normocephalic, atraumatic. No pharyngeal erythema. No thyromegaly. CARDIOVASCULAR: S1 and S2 present. No murmurs, rubs, or gallops. PULMONARY: Significantly decreased air entry into bilateral lung campbell significant expiratory wheezing was appreciated mildly his crackles were appreciated as well. ABDOMEN: Soft, nontender, nondistended, normoactive bowel sounds. No palpable organomegaly. MUSCULOSKELETAL: No joint swelling or deformity. EXTREMITIES: No cyanosis, clubbing, or pedal edema. NEUROLOGICAL: Gross neurological examination did not reveal any focal deficits. SKIN: No rashes. - Labs CBC & Chem 7: 02/01/18 05:41 02/02/18 05:44 Labs: Abnormal Lab Results - Last 24 Hours (Table) 02/02/18 Range/Units 05:44 Sodium 146 H (137-145) mmol/L BUN 50 H (7-17) mg/dL Creatinine 1.85 H (0.52-1.04) mg/dL Microbiology - Last 24 Hours (Table) 01/28/18 12:25 Blood Culture - Preliminary Blood No Growth after 96 hours 01/28/18 08:57 Gram Stain - Final Sputum Sputum Culture - Final Methicillin resist S. aureus Assessment and Plan Plan: -Acute on chronic hypercapnic respiratory failure as well as acute hypoxic respiratory failure: Secondary to possible COPD exacerbation and early SIRS of right upper lobe pneumonia respectively, possible MRSA pneumonia. Patient is presently on vancomycin as well as Zosyn -Chronic hypercapnic respiratory failure secondary to COPD uses 2.5 L of oxygen -Hyperlipidemia -Elevated troponin secondary to hypoxemia and sepsis. 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
[2018-02-02] MEDS ORDERED: DILTIAZEM 50 MG in SODIUM CHLORIDE 0.9% 40 ML IV SCH (15:45)
[2018-02-02] MEDS: DILTIAZEM 50 MG in SODIUM CHLORIDE 0.9% 40 ML IV SCH ×2 (18:37→21:15)
[2018-02-02] MEDS: LATANOPROST 0.005% OPHTH DROPS 2.5 ML BTL BOTH EYES SCH (20:00)
[2018-02-02] MEDS: ASPIRIN 81 MG PO SCH (20:00)
[2018-02-03] MEDS: PIPERACILLIN-TAZOBACTAM 3.375 GM in DEXTROSE/WATER 1 50ML.BAG IVPB SCH (00:11)
[2018-02-03] MEDS ORDERED: LORazepam 0.5 MG TAB PO PRN (00:56)
[2018-02-03] MEDS: LORazepam 0.5 MG TAB PO PRN (01:39)
[2018-02-03] MEDS: DILTIAZEM 50 MG in SODIUM CHLORIDE 0.9% 40 ML IV SCH ×4 (01:52→21:20)
[2018-02-03] MEDS: IPRATROPIUM-ALBUTEROL 3 ML NEB INHALATION PRN ×2 (02:58→12:57)
[2018-02-03] MEDS: LEVOTHYROXINE 50 MCG TAB PO SCH (05:24)
[2018-02-03] MEDS: PANTOPRAZOLE 40 MG TABLET PO SCH (06:40)
[2018-02-03] MEDS: IPRATROPIUM-ALBUTEROL 3 ML NEB INHALATION SCH ×2 (07:31→10:19)
[2018-02-03] MEDS: SYMBICORT 160-4.5 MCG INHALER INHALATION SCH (07:31)
[2018-02-03] MEDS ORDERED: FUROSEMIDE 10 MG/ML 4 ML VIAL IV STA (08:42)
[2018-02-03] MEDS: ALLOPURINOL 100 MG TAB PO SCH (08:55)
[2018-02-03] MEDS: predniSONE 10 MG TAB PO SCH (08:55)
[2018-02-03] MEDS: METOPROLOL TARTRATE 25 MG TAB PO SCH (08:56)
[2018-02-03] MEDS: ISOSORBIDE MONONITRATE ER 30 MG TAB.ER.24H PO SCH (08:56)
[2018-02-03] MEDS: ATORVASTATIN 40 MG TAB PO SCH (08:56)
[2018-02-03] MEDS: VIT A,C & E-LUTEIN-MINERALS 1 EACH TAB PO SCH (08:56)
[2018-02-03 09:20] LABS: Calcium 9.8 mg/dL (8.4-10.2); Potassium 4.3 mmol/L (3.5-5.1)
[2018-02-03 09:25] LABS: Vancomycin,Random 13.8 ug/mL
[2018-02-03 09:48] VITALS: BP 123/101; RESP 18; TEMP 97.8
[2018-02-03] MEDS ORDERED: VANCOMYCIN 1,250 MG in SODIUM CHLORIDE 0.9% 250 ML IVPB ONE (11:00)
--- NOTE | 2018-02-03 12:11 | P.PN ---
Subjective Progress Note Date: 02/03/18 Principal diagnosis: Acute on chronic hypoxic respiratory failure secondary to an acute exacerbation of chronic obstructive pulmonary disease and an acute exacerbation of diastolic congestive heart failure, cannot rule out underlying pneumonia This is a very pleasant 82-year-old female patient who follows with Dr. Charles as her primary care physician. She has a history of hypertension, hyperlipidemia, myocardial infarction, hypothyroidism, chronic renal failure, iron deficiency anemia. She also follows in our office with Dr. 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 Her FEV1 value is 35% of predicted. She was seen by him approximately one month ago and at that time had been fairly stable. The last few days however she has had increasing shortness of breath, cough and congestion. She's had mitchell productive sputum. Some chest tightness and wheezing. Chest x-ray revealed evidence of spiculated nodule in the left upper lobe and some suspected increased patchy density of the right upper lobe suspicious for pneumonia. There is also evidence of COPD. Also some pulmonary venous congestion. White count 11.8. Hemoglobin 9.0. Creatinine 1.70. ProBNP 15,200. Troponin 0.656, 0.196, 0.556. She did have a T-max of 99.4. Slightly tachycardic. Blood pressure stable. Maintaining O2 saturations in the high 90s on 3 L/m per nasal cannula. She is seen today in consultation on the selective care unit. She is currently awake and alert in no acute distress. She is dyspneic with minimal exertion. She has coughing and congested. She has been initiated on antibiotics in the form of Zosyn, bronchodilators, IV Solu-Medrol and she has been given IV Lasix. On 01/30/2018 patient seen in follow-up. She is sitting up in the chair, eating lunch. She denies acute distress, lung sounds are positive for diffuse wheezes and rhonchi. She is being diuresed with IV Lasix at 20 mg every 12 hours, she is on empiric antibiotics in the form of Zosyn. Sputum blood culture results are pending at this time, patient is afebrile. Denies any fever or chills, she is currently on 3 L per nasal cannula O2 sat 96%. No tachycardia today, blood pressure is stable. She remains on IV Solu-Medrol, and bronchodilators. We'll continue current treatment. Patient is negative 2 kilos since admission. Progress note dated 02/01/2018 82-year-old female with a history of chronic hypoxemic respiratory failure secondary to COPD exacerbation as well as diastolic heart failure. From January 28 was evidence of methicillin-resistant staph aureus. I did start her on vancomycin yesterday. There is also component of either acute bronchitis with bronchospasm and/or bronchopneumonia given the above findings. She was also found to have a troponin leak CAD with previous stent placement influenza B infection acute on chronic renal fire hypothyroidism hypertension hyperlipidemia and general medical debility. She does feel a bit better. Still coughing and producing yellow phlegm. No fever or chills. Lots of tightness in her chest. Lots of moist and right chest congestion. No fever or chills. No nausea vomiting or diarrhea. No chest pain or chest pressure. She is a DO NOT RESUSCITATE. Progress note dated 02/02/2018 82-year-old female with a history of chronic hypoxemic respiratory failure secondary to COPD exacerbation as well as diastolic heart failure. The patient did have evidence of methicillin-resistant staph aureus in a sputum from January 28. The patient was started on vancomycin. Today, she's feeling miserable. She wants to " throw the towel." The patient was also found have a troponin leak , CAD with previous stent placement, influenza B, acute on chronic renal failure , hypothyroidism, hypertension, hyperlipidemia and general medical debility. The patient is doing poorly. I discussed the situation with the nurse. The nurse to call the daughter. I did a hospice consult will be very appropriate. The patient's very lethargic and somnolent. On 02/03/2018 patient seen in follow-up on selective care unit. She appears to be short of breath at rest, she sitting up leaning over a bedside table, complaining of dyspnea. She has made a decision to proceed with hospice enrollment in comfort care at this time, she states he just wants to go to sleep , and may comfortable. This morning patient was very congested, with audible rhonchi, for which 40 mg of IV Lasix was given. Patient and patient's family opted to enroll in [facility] hospice at this time, they are meeting with them this morning. Patient has made little improvement clinically despite treatments over the last 6 days while inpatient. She is tachycardic with a heart rate up to 148 BPM, she is afebrile, currently on 3 L per nasal cannula with O2 sat at 92%. Appears very fatigued and worn out. Given the patient's debilitated state, advanced COPD, and multiple comorbidities, it is reasonable to proceed with him for care at this time. Objective - Vital Signs Vital signs: Vital Signs Temp 97.8 F 02/03/18 08:00 Pulse 148 H 02/03/18 10:31 Resp 18 02/03/18 08:00 BP 123/101 02/03/18 08:00 Pulse Ox 92 L 02/03/18 08:00 Intake & Output 02/02/18 02/03/18 02/03/18 18:59 06:59 18:59 Intake Total 180 248.5 50 Output Total 900 Balance -720 248.5 50 Weight 64 kg Intake: IV 80 0.9 80 Intake, IV Titration 168.5 50 Amount Diltiazem 50 mg In Sodium 118.5 50 Chloride 0.9% 40 ml @ 15 MG/HR 15 mls/hr IV . Q3H20M NARINDER Rx#:[id number] Piperacillin-Tazobactam 3 50 .375 gm In Dextrose/Water 1 50ml.bag @ 12.5 mls/hr IVPB Q12H NARINDER Rx#: [id number] Oral 180 Output: Urine 900 Other: Voiding Method Bedpan Diaper # Voids 2 3 - Exam GENERAL EXAM: Frail, cachectic. Moderately short of breath, sitting up at the side of the bed, leaning over the bedside table, appears to be very fatigued and worn out HEAD: Normocephalic. EYES: Normal reaction of pupils, equal size. NOSE: Clear with pink turbinates. THROAT: No erythema or exudates. NECK: No masses, no JVD. CHEST: No chest wall deformity. LUNGS: Equal air entry with bilateral expiratory wheeze CVS: S1 and S2 normal with no audible murmur, regular rhythm. Tachycardic. ABDOMEN: No hepatosplenomegaly, normal bowel sounds, no guarding or rigidity. SPINE: Kyphoscoliosis SKIN: No rashes CENTRAL NERVOUS SYSTEM: No focal deficits, tone is normal in all 4 extremities. EXTREMITIES: There is trace peripheral edema. No clubbing, no cyanosis. Peripheral pulses are intact. - Labs CBC & Chem 7: 02/01/18 05:41 02/03/18 07:35 Labs: Abnormal Lab Results - Last 24 Hours (Table) 02/03/18 Range/Units 07:35 BUN 51 H (7-17) mg/dL Creatinine 2.00 H (0.52-1.04) mg/dL Microbiology - Last 24 Hours (Table) 01/28/18 12:25 Blood Culture - Preliminary Blood No Growth after 120 hours Assessment and Plan Plan: Assessment: #1 Acute on chronic hypoxic respiratory failure secondary to an acute exacerbation of chronic obstructive pulmonary disease and an acute exacerbation of diastolic congestive heart failure, cannot rule out underlying pneumonia. Sputum culture was positive for MRSA, patient was treated with Zosyn and vancomycin #2 Mild troponin leak. #3 History of coronary disease with previous stent placement. #4 Recent history of influenza B infection. #5 Acute on chronic renal failure. #6 Hypothyroidism. #7 Hypertension. #8 Hyperlipidemia. #9 Poor overall functional performance based on the above-mentioned multiple comorbidities. Plan: Patient remains very short of breath, overall she has become very weak. Patient remains on a combination of Zosyn and vancomycin, bronchodilators, she has received IV diuretics. She has made very little improvement, at this point she decided she wants to enroll in hospice, and proceed with comfort care. This morning we gave the patient 40 of Lasix for audible congestion, prednisone. Patient and her family are expected to meet with [facility] this morning. We will sign off at this time and follow the patient on as- needed basis. I performed a history & physical examination of the patient and discussed their management with my nurse practitioner, Eva Watson. I reviewed the nurse practitioner's note and agree with the documented findings and plan of care. Lung sounds are positive for diffuse wheezes, coarse rhonchi. The findings and the impression was discussed with the patient. I attest to the documentation by the nurse practitioner. Time with Patient: Less than 30
[2018-02-03 13:01] VITALS: PULSE 132
--- NOTE | 2018-02-04 06:59 | DS ---
DISCHARGE SUMMARY DATE OF ADMISSION: 01/28/18. DATE OF DISCHARGE: 02/03/18. FINAL DIAGNOSES: 1. Pneumonia probably MRSA and gram-negative organism causing acute hypoxic respiratory failure and acute hypercapnic respiratory failure. 2. Chronic hypercapnic respiratory failure secondary to chronic obstructive pulmonary disease. 3. Hyperlipidemia. 4. Elevated troponin due to sepsis. 5. Sepsis due to pneumonia. 6. Chronic kidney disease stage III from hypertensive nephrosclerosis. 7. Hypothyroidism. 8. Essential hypertension. HOSPITAL COURSE: The patient with advanced COPD, presented with pneumonia, sepsis, continued to get worse. It was decided, hospice was consulted. Today patient is barely eating, short of breath at rest. Sitting on edge of the bed. Wants hospice. ADVANCED CARE PLANNING: Advanced care planning initially talked to the patient and she wants to go ahead with the hospice. Nurse met with the patient's daughter and son-in-law and from the hospice team had a meeting and did discuss all aspects of the hospice including symptom control, comfort, diet, and if any secretion she has, they are agreeable to the same. [facility] is involved. Advanced care planning additionally took about 20-25 minutes in addition to the discharge planning. DISCHARGE MEDICATIONS: Discharge medications for the hospice: 1. Imdur ER 30 mg a day. 2. Nitrostat 0.4 sublingual q.5 p.r.n. 3. Synthroid 50 mcg p.o. daily. 4. Allopurinol 100 mg p.o. daily. 5. Xalatan 0.005 one drop to both eyes q.h.s. 6. Pulmicort 1 mg b.i.d. 7. Melatonin 1 mg at bedtime p.r.n. 8. Omeprazole 20 mg p.o. daily. 9. Prednisone 40 mg p.o. daily. 10.DuoNeb q.4h plus p.r.n. 11.Lopressor 25 p.o. b.i.d. EXAM: Patient is sitting up at the edge of the bed, short of breath. Lungs: Basal crackles. The patient is awake, able answer questions, rather anxious. DISPOSITION: Inpatient hospice for symptom control. Care was further discussed with the hospice people. Will get the orders in place. Discharge planning more than 35 minutes. MMODL / IJN: [id number] /
== END 2018-02-03 13:07 | disposition hospice, inpatient (51) | DRG 871 ==
LOC: EC 11:48 → 6SEL 14:33
PROVIDERS: ADMIT Hospitalist; ATTEND Hospitalist
PROC: 5A09357 Assistance with Respiratory Ventilation, Less than 24 Consecutive Hours, Continuous Positive Airway Pressure (ICD-10-PCS; principal; 2018-01-28)
DX: A41.9 Sepsis, unspecified organism (principal); J96.22 Acute and chronic respiratory failure with hypercapnia; J96.21 Acute and chronic respiratory failure with hypoxia; I50.33 Acute on chronic diastolic (congestive) heart failure; J15.212 Pneumonia due to Methicillin resistant Staphylococcus aureus; J15.6 Pneumonia due to other Gram-negative bacteria; N17.9 Acute kidney failure, unspecified; I95.9 Hypotension, unspecified; I13.0 Hypertensive heart and chronic kidney disease with heart failure and stage 1 through stage 4 chronic kidney disease, or unspecified chronic kidney disease; J44.0 Chronic obstructive pulmonary disease with (acute) lower respiratory infection; J44.1 Chronic obstructive pulmonary disease with (acute) exacerbation; Z99.81 Dependence on supplemental oxygen; N18.3 Chronic kidney disease, stage 3 (moderate); E89.0 Postprocedural hypothyroidism; E78.5 Hyperlipidemia, unspecified; I25.2 Old myocardial infarction; H40.9 Unspecified glaucoma; R91.1 Solitary pulmonary nodule; D50.9 Iron deficiency anemia, unspecified; Z66 Do not resuscitate; T50.2X5A Adverse effect of carbonic-anhydrase inhibitors, benzothiadiazides and other diuretics, initial encounter; I25.10 Atherosclerotic heart disease of native coronary artery without angina pectoris; Z79.82 Long term (current) use of aspirin; Z79.890 Hormone replacement therapy; Z79.51 Long term (current) use of inhaled steroids; Z79.899 Other long term (current) drug therapy; Z90.49 Acquired absence of other specified parts of digestive tract; Z95.5 Presence of coronary angioplasty implant and graft; Z87.891 Personal history of nicotine dependence; Z90.710 Acquired absence of both cervix and uterus; Z98.42 Cataract extraction status, left eye; Z98.41 Cataract extraction status, right eye; Z88.1 Allergy status to other antibiotic agents; Z88.5 Allergy status to narcotic agent; Z91.018 Allergy to other foods; Z82.49 Family history of ischemic heart disease and other diseases of the circulatory system
CPT/HCPCS: 36415; 71046; 80048; 80053; 80202; 82550; 82553; 83605; 83735; 83880; 84132; 84484; 85025; 85027; 85610; 85730; 87040; 87070; 87077; 87186; 87205; 93005; 94640; 94660; 94760; 96365; 96366; 96367; 96375; 96376; 99291

== ENCOUNTER 2018-02-03 13:12 | Inpatient (IN) | payer MEDICAID ==
[2018-02-03] MEDS ORDERED: ONDANSETRON 4 MG/2 ML VIAL IVP PRN (13:16)
[2018-02-03] MEDS ORDERED: GLYCOPYRROLATE 0.2 MG/ML 2 ML VIAL IVP PRN (13:16)
[2018-02-03] MEDS ORDERED: LORazepam 2 MG/ML INJ IV PRN (13:16)
[2018-02-03] MEDS ORDERED: ACETAMINOPHEN SUPPOSITORY 650 MG SUPP RECTAL PRN (13:16)
[2018-02-03] MEDS ORDERED: MELATONIN 1 MG TAB PO PRN (13:28)
[2018-02-03] MEDS ORDERED: NITROGLYCERIN SL TABS 0.4 MG TAB SUBLINGUAL PRN (13:29)
[2018-02-03] MEDS: MORPHINE SULFATE 4MG/4ML SYRG IV PRN (14:17)
[2018-02-03] MEDS: IPRATROPIUM-ALBUTEROL 3 ML NEB INHALATION SCH ×3 (15:46→23:51)
[2018-02-03] MEDS: BUDESONIDE 1 MG/2 ML NEBU INHALATION SCH (20:16)
[2018-02-03] MEDS: LATANOPROST 0.005% OPHTH DROPS 2.5 ML BTL BOTH EYES SCH (21:29)
[2018-02-04] MEDS: MORPHINE SULFATE 4MG/4ML SYRG IV PRN ×4 (03:30→14:12)
[2018-02-04] MEDS: IPRATROPIUM-ALBUTEROL 3 ML NEB INHALATION SCH ×5 (03:54→20:09)
[2018-02-04] MEDS: LEVOTHYROXINE 50 MCG TAB PO SCH (04:40)
[2018-02-04] MEDS: BUDESONIDE 1 MG/2 ML NEBU INHALATION SCH ×2 (07:23→20:09)
[2018-02-04] MEDS: BISACODYL 10 MG SUPP RECTAL SCH (09:02)
[2018-02-04] MEDS: ISOSORBIDE MONONITRATE ER 30 MG TAB.ER.24H PO SCH (09:02)
[2018-02-04] MEDS: predniSONE 20 MG TAB PO SCH (09:03)
[2018-02-04] MEDS ORDERED: LORazepam 0.5 MG TAB PO PRN (13:28)
[2018-02-04] MEDS ORDERED: MORPHINE ORAL SOL CONC 20 MG/ML BOTTLE PO PRN (14:09)
[2018-02-04] MEDS: MORPHINE ORAL SOL CONC 20 MG/ML BOTTLE PO SCH (16:04)
[2018-02-04] MEDS ORDERED: IPRATROPIUM-ALBUTEROL 3 ML NEB INHALATION PRN (20:10)
[2018-02-05] MEDS ORDERED: MORPHINE ORAL SOL CONC 20 MG/ML BOTTLE ONE (02:10)
[2018-02-05] MEDS: MORPHINE ORAL SOL CONC 20 MG/ML BOTTLE PO SCH ×5 (06:28→21:23)
[2018-02-05] MEDS: LATANOPROST 0.005% OPHTH DROPS 2.5 ML BTL BOTH EYES SCH ×2 (06:28→20:51)
[2018-02-05] MEDS: LEVOTHYROXINE 50 MCG TAB PO SCH (06:29)
[2018-02-05] MEDS: BUDESONIDE 1 MG/2 ML NEBU INHALATION SCH ×2 (07:21→20:06)
[2018-02-05] MEDS: IPRATROPIUM-ALBUTEROL 3 ML NEB INHALATION SCH ×4 (07:21→20:06)
[2018-02-05] MEDS: MORPHINE SULFATE 4MG/4ML SYRG IV PRN (08:35)
[2018-02-05] MEDS: ISOSORBIDE MONONITRATE ER 30 MG TAB.ER.24H PO SCH (08:53)
[2018-02-05] MEDS: BISACODYL 10 MG SUPP RECTAL SCH (08:53)
[2018-02-05] MEDS: predniSONE 20 MG TAB PO SCH (08:53)
[2018-02-05] MEDS ORDERED: FLUCONAZOLE 100 MG TAB PO ONE (11:01)
[2018-02-05] MEDS ORDERED: oxyCODONE ER 20 MG TAB.ER.12H PO SCH (20:00)
--- NOTE | 2018-02-05 20:24 | PN ---
PROGRESS NOTE DATE OF SERVICE: 02/04/18. PRESENTING COMPLAINT: Short of breath. INTERVAL HISTORY: Patient admitted with [facility] for symptom control, primarily shortness of breath. The patient is sitting on the bed, tired-appearing, though a bit more awake. The patient has been drinking some liquid broth. REVIEW OF SYSTEMS: Done for constitutional, cardiovascular, GI, pulmonary; relevant findings as above. CURRENT MEDICATIONS: Reviewed. EXAMINATION: Temperature 96.5, pulse 100, respiration 20, blood pressure 114/43, pulse ox 99% on 3 L. GENERAL APPEARANCE: Sitting up in bed, awake, tired-appearing, short of breath. EYES: Pupils equal. Conjunctivae normal. HEENT: External nose and ears normal. Oral cavity dry. NECK: JVD unable to assess. RESPIRATORY: Effort increased. Lungs decreased breath sounds, some crackles. CARDIOVASCULAR: 1st and 2nd sounds, no edema. ABDOMEN: Soft, nontender. Liver and spleen not palpable. PSYCHIATRY: Alert and oriented x3 Mood and affect anxious-appearing. Respiratory rate is increased. INVESTIGATIONS: None. ASSESSMENT: 1. End-stage chronic obstructive pulmonary disease. 2. Acute on chronic hypoxic respiratory failure. 3. Hypothyroidism. 4. Essential hypertension. 5. Anxiety, not otherwise specified. PLAN: We will continue with current medication and treatment plan that includes DuoNeb, Robinul for secretions, Synthroid, Roxanol, prednisone. Care was discussed with the patient. Also discussed with the hospice nurse. Follow. MMODL / IJN: [id number] /
[2018-02-05 21:42] VITALS: RESP 18
--- NOTE | 2018-02-05 23:12 | PN ---
PROGRESS NOTE DATE OF SERVICE: 02/05/2018. PRESENTING COMPLAINT: Short of breath. INTERVAL HISTORY: The patient was admitted with [facility] for symptom control, shortness of breath, end-stage COPD. The patient continued to take some liquid diet, getting morphine for symptom control. Later in the evening patient was a bit more short of breath. REVIEW OF SYSTEMS: Done for constitutional, cardiovascular, GI, pulmonary; relevant findings as above. CURRENT MEDICATIONS: Reviewed. EXAMINATION: Temperature 97.6, pulse 110, respirations 20, blood pressure 100/93, pulse ox 98% on 3 L. GENERAL APPEARANCE: Sitting up, propped up in bed, awake, tired-appearing. EYES: Pupils equal. Conjunctivae pale. HEENT: External nose and ears normal. Oral cavity dry. NECK: JVD unable to assess. Respiratory effort increased. LUNGS: Decreased breath sounds. Basal crackles. CARDIOVASCULAR: 1st and 2nd sounds normal. No edema. PSYCH: Alert, oriented x3. Mood is slightly anxious. ASSESSMENT: 1. End-stage chronic obstructive pulmonary disease. 2. Acute on chronic hypoxic respiratory failure from chronic obstructive pulmonary disease. 3. Hypothyroidism. 4. Essential hypertension. 5. Anxiety, not otherwise specified. 6. Dyspnea as a result above. PLAN: For symptom control for dyspnea, patient is requiring morphine in the form of Roxanol. Hence we will try the patient on OxyContin 20 mg twice a day in addition and go from there. MMMARIE / BRIDGERN: [id number] /
[2018-02-06] MEDS: MORPHINE ORAL SOL CONC 20 MG/ML BOTTLE PO SCH ×5 (00:38→15:17)
[2018-02-06] MEDS: LEVOTHYROXINE 50 MCG TAB PO SCH (06:23)
[2018-02-06] MEDS: IPRATROPIUM-ALBUTEROL 3 ML NEB INHALATION SCH ×2 (07:52→11:25)
[2018-02-06] MEDS: BUDESONIDE 1 MG/2 ML NEBU INHALATION SCH (07:52)
[2018-02-06] MEDS ORDERED: oxyCODONE ER 20 MG TAB.ER.12H PO SCH (08:00)
[2018-02-06] MEDS: ISOSORBIDE MONONITRATE ER 30 MG TAB.ER.24H PO SCH (08:48)
[2018-02-06] MEDS: predniSONE 20 MG TAB PO SCH (08:48)
[2018-02-06] MEDS: BISACODYL 10 MG SUPP RECTAL SCH (08:48)
[2018-02-06] MEDS ORDERED: FLUCONAZOLE 100 MG TAB PO SCH (09:00)
[2018-02-06 09:13] VITALS: BP 132/65; TEMP 97.5
[2018-02-06 15:51] VITALS: PULSE 112
--- NOTE | 2018-02-07 21:08 | DS ---
DISCHARGE SUMMARY DATE OF ADMISSION: February 03, 2018. DATE OF DISCHARGE: February 07, 2018. FINAL DIAGNOSES: 1. End-stage COPD with severe medical debility and dyspnea. 2. Acute on chronic hypoxic respiratory failure from chronic obstructive pulmonary disease. 3. Hypothyroidism. 4. Essential hypertension. 5. Anxiety not otherwise specified. HOSPITAL COURSE: This patient with end-stage COPD was admitted to a general inpatient for hospice symptom management for her dyspnea. The patient did settle down to a certain degree, was tolerating a bit of liquid diet. The patient will be discharged to hospice service. [facility] DISPOSITION: [facility]. On examination short of breath at rest. Lungs decreased breath sounds. Patient able to answer questions. DISCHARGE MEDICATIONS: 1. Imdur ER 30 mg a day. 2. Nitrostat 0.4 sublingual q.5 p.r.n. 3. Synthroid 50 mcg a day. 4. Allopurinol 100 mg a day. 5. Xanax 0.005% 1 drop to both eyes q.h.s. 6. Pulmicort 1 mg b.i.d. 7. Melatonin 1 mg at bedtime p.r.n. 8. Omeprazole 20 mg p.o. daily. 9. Prednisone 40 mg p.o. daily. 10.DuoNeb q.4 hours. 11.Lopressor 24 mg p.o. b.i.d. 12.Diflucan 100 mg p.o. daily for 5 tablets. 13.Ativan 1 mg q.4 p.r.n. 14.Roxanol 20 mg/mL, that is 5 mg q.4 p.r.n. 15.Scopolamine patch every 72 hours as needed. Followup disposition [facility] under hospice service. CAUSE OF HOSPICE: End-stage COPD with significant dyspnea at rest. MMODL / IJN: [id number] /
== END 2018-02-06 16:25 | disposition hospice, inpatient (51) | DRG 189 ==
LOC: 6SEL 13:12 → 5MS5E 02-05 20:36
PROVIDERS: ADMIT Hospitalist; ATTEND Hospitalist
DX: J96.21 Acute and chronic respiratory failure with hypoxia (principal); I13.0 Hypertensive heart and chronic kidney disease with heart failure and stage 1 through stage 4 chronic kidney disease, or unspecified chronic kidney disease; J44.9 Chronic obstructive pulmonary disease, unspecified; E03.9 Hypothyroidism, unspecified; F41.9 Anxiety disorder, unspecified; Z79.890 Hormone replacement therapy; Z79.899 Other long term (current) drug therapy; I25.2 Old myocardial infarction; Z99.81 Dependence on supplemental oxygen; I25.10 Atherosclerotic heart disease of native coronary artery without angina pectoris; Z87.01 Personal history of pneumonia (recurrent); Z86.19 Personal history of other infectious and parasitic diseases; Z95.5 Presence of coronary angioplasty implant and graft; Z98.42 Cataract extraction status, left eye; Z98.41 Cataract extraction status, right eye; Z87.891 Personal history of nicotine dependence; Z88.1 Allergy status to other antibiotic agents; Z88.5 Allergy status to narcotic agent; Z91.018 Allergy to other foods; N18.3 Chronic kidney disease, stage 3 (moderate); I50.9 Heart failure, unspecified; Z82.49 Family history of ischemic heart disease and other diseases of the circulatory system; Z84.1 Family history of disorders of kidney and ureter; E89.2 Postprocedural hypoparathyroidism
CPT/HCPCS: 94640; 94760